=== PATIENT | male | born 1925 | race American Indian/Alaskan Native ===

== ENCOUNTER 2016-05-10 14:58 | Inpatient (IN) | payer MEDICARE, OTHER ==
--- NOTE | 2016-05-10 15:20 | C.PDOC ---
History Of Present Illness Patient [place] from [place] for sudden onset of dysarthria and right sided facial droop since approx 1:45pm, witnessed by [facility] staff. Patient at baseline in confused, but can typically speak normally. PMHx of HTN, anemia, GERD. Time Seen by Provider: 05/10/16 15:02 History Per: EMS History/Exam Limitations: clinical condition Onset/Duration Of Symptoms: Hrs Current Symptoms Are (Timing): Still Present Seizure Or Post-ictal Symptoms: None Past Medical History Reviewed: Historical Data, Nursing Documentation, Vital Signs Vital Signs: Last Vital Signs Temp 96.7 F L 05/10/16 18:00 Pulse 50 L 05/10/16 19:31 Resp 14 05/10/16 19:31 BP 108/41 L 05/10/16 19:31 Pulse Ox 100 05/10/16 19:31 - Medical History PMH: Anemia, Arthritis (B/L KNEE R>L), GERD, HTN - [facility] Procedures CLOSED ENDOSCOPIC BIOPSY OF LARGE INTESTINE (09/12/13) ESOPHAGOGASTRODUODENOSCOPY [EGD] W/CLOSED BIOPSY (09/12/13) PACKED CELL TRANSFUSION (09/12/13) TRANSFUSE NONAUT RED BLOOD CELLS IN PERIPH VEIN, PERC (04/28/16) Family History: States: No Known Family Hx - Social History Hx Tobacco Use: No Hx Alcohol Use: No Hx Substance Use: No - Immunization History Hx Tetanus Toxoid Vaccination: No Hx Influenza Vaccination: Yes Hx Pneumococcal Vaccination: No Review Of Systems Review Of Systems: ROS cannot be obtained secondary to pt's inabilty to answer questions. Physical Exam - Physical Exam Appears: Non-toxic, Other (in mild distress, agitated, cachectic appearing) Head: Atraumatic, Normacephalic Eye(s): bilateral: Normal Inspection, PERRL (approx 2mm bt equal and reactive B/ L) Oral Mucosa: Moist Chest: Symmetrical Cardiovascular: Rhythm Regular (bradycardic ) Respiratory: Normal Breath Sounds, No Rales, No Rhonchi, No Wheezing Gastrointestinal/Abdominal: Normal Exam, Bowel Sounds, Soft, No Tenderness Neurological/Psych: No Normal Speech, No Normal Cranial Nerves (right lainey complete facial droop), No Cerebellar Signs, No Normal Motor (facial droop - however 5/5 motor strength all extremities ), Dysarthria, Other (slurred speech) ED Course And Treatment - Laboratory Results Result Diagrams: 05/10/16 15:31 05/10/16 15:31 ECG: Interpreted By Me, Viewed By Me (sinus bradycardia, normal axis, no acute ST changes) ECG Interpretation: Abnormal O2 Sat by Pulse Oximetry: 100 (RA) Pulse Ox Interpretation: Normal Progress Note: Code stroke called on ED arrival. Blood work, EKG, CT head ordered and reviewed. Patient given [facility] [place] after CT head results (-) for bleed. 3:20pm- Spoke with Dr. Wen, he recommends tPA and CT angio of head after wards. Calls made to luís and son at 3:25pm, pending call back for consendy for tPA. 3:40PM- Spoke with son Bryan Whittington on the phone, he consents for tPA administration, nurse Anne-Marie also spoke with him and heard/ confirmed his telephone consent. 4:00pm- Discussed coagulotation studies with Dr. Wen, he recommends tPA despite slightly elevated PTT at 44. No evidence of heparin/lovenox adminstration on [facility] papers. 4:02pm- IV tPA bolus pushed by me. 4:15PM- Patient speech a little more clear than before tPA bolus. 4:40pm- Patient accepted to ICU by Dr. Camacho for acute CVA. Dr. Kelley aware. Critical Care Time - Critical Care Note Total Time (in mins): 45 Documented critical care: time excludes all time spent performing seperately billable procedures. NIHSS Stroke Scale - Date/Time Evaluation Performed Date Performed: 05/10/16 Time Performed: 15:05 When Was NIHSS Performed: Baseline - How Severe is the Stoke Level of Consciousness: 0=Alert LOC to Questions: 1=One correct LOC to commands: 1=Obeys one correctly Best Gaze: 0=Normal Visual: 0=No visual loss Facial: 3=Complete unilateral paralysis Motor Arm - Left: 0=No drift Motor Arm - Right: 0=No drift Motor Leg - Left: 0=No drift Motor Leg - Right: 0=No drift Limb Ataxia: 0=Absent Sensory: 0=Normal Best Language: 0=No aphasia Dysarthia: 2=Severe, near unintelligible or worse Extinction & Inattention (Neglect): 0=Normal, no object Score: 7 Severity Of Stroke: 5-15= Moderate Stroke rTPA Inclusion/Exclusion - Refusal of Treatment Patient Refused Treatment: No - Inclusion Criteria for Altepase Patient is 18 years or Older: Yes The Clinical Diagnosis of Ischemic Stroke That is Causing a Potentially Disabling Neurological Deficit: Yes Time of Onset is Well Established to be Less Than 270 Minute Before Treatment Would Begin: Yes Risk/Benefit Discussed With Patient/Family Member Present: Yes - Exclusion Criteria for Altepase Uncontrolled Hypertension at Time of Treatment (Systolic BP above 185 or Diastolic BP above 110 mmHg): No Active Internal Bleeding: No Known Bleeding Diathesis Including but Not Limited to: Platelets Below 100,000/ mm,PTT Above 40 sec After Heparin Use, Current Use of Oral Anitcoagulant With INR Greater Than 1.7 or PT Greater Than 15 secs: No Evidence of an Intracranial Hemorrhage: No Evidence of Major Acute Infarct With Signs Greater Than 1/3 MCA Territory: No Suspicion of Subarachnoid Hemorrhage on Pretreatment Evaluation Even if CT Head Negative For Hemorrhage: No - Warning to TPA With Conditions Following Conditions Weighed Against Anticipated Benefit: Yes Condition: Age Greater Than 75 years Additional Condition (For 3-4.5 Hour Window): Age Greater Than 80 Disposition - Disposition Disposition: HOSPITALIZED Condition: SERIOUS
--- NOTE | 2016-05-10 15:22 | CT ---
PROCEDURE: CT HEAD WITHOUT CONTRAST. HISTORY: RIGHT Facial DROOP , SLURRED Speech COMPARISON: Head CT from 04/28/2016. TECHNIQUE: Axial computed tomography images were obtained through the head/brain without intravenous contrast. Radiation dose: Total exam DLP = 1172.5 mGy-cm. FINDINGS: HEMORRHAGE: No intracranial hemorrhage. BRAIN: 1.8 x 1.7 centimeter hypodense area in the left frontal subcortical white matter best seen on image 53, series 4. This was not seen in the prior CT from 04/28/2016. Age related volume loss. Patchy and confluent hypodensities throughout the bilateral cerebral hemispheric white matter are most likely from chronic small vessel ischemic changes. VENTRICLES: Unremarkable. No hydrocephalus. CALVARIUM: Unremarkable. PARANASAL SINUSES: Unremarkable as visualized. No significant inflammatory changes. MASTOID AIR CELLS: Unremarkable as visualized. No inflammatory changes. OTHER FINDINGS: None. IMPRESSION: New 1.8 x 1.7 centimeter hypodense area in the left frontal white matter could represent an area of acute/ early subacute ischemic injury. Confirmation with MRI can be obtained. Other findings as above. Notified Dr. Mcconnell at 3:17 p.m. on 05/10/2016.
[2016-05-10 15:35] LABS: BASO # 0.1 K/uL (0.0-0.2); BASO % 2.2 % (0.0-2.0); EOS # 0.1 K/uL (0.0-0.7); EOS % 0.8 % (0.0-4.0); LYMPH # 1.3 K/uL (1.0-4.3); LYMPH % 20.9 % (20.0-40.0); MEAN CORPUSCULAR HEMOGLOBIN 23.5 pg (27.0-31.0); MEAN PLATELET VOLUME 7.1 fL (7.2-11.7); MONO # 0.6 K/uL (0.0-0.8); MONO % 10.2 % (0.0-10.0); NRBC % 0.9 % (0.0-2.0); RED CELL DISTRIBUTION WIDTH 18.5 % (11.5-14.5)
[2016-05-10 15:37] LABS: MEAN CELL VOLUME 73.3 fL (80.0-94.0)
[2016-05-10 15:46] LABS: CHLORIDE 100 mmol/L (98-107); POTASSIUM 4.2 mmol/L (3.6-5.2); SODIUM 144 mmol/L (132-148)
[2016-05-10 15:48] LABS: BILIRUBIN,TOTAL 0.8 mg/dL (0.2-1.3); CARBON DIOXIDE 29 mmol/L (22-30); CHOLESTEROL 161 mg/dL (0-199); GFR AFRICAN-AMERICAN > 60; TOTAL PROTEIN 6.9 g/dL (6.3-8.3)
[2016-05-10 15:49] LABS: ALKALINE PHOSPHATASE 47 U/L (38-126); ALT/SGPT 33 U/L (21-72); AST/SGOT 49 U/L (17-59); BLOOD UREA NITROGEN 15 mg/dL (9-20); CALCIUM 8.9 mg/dl (8.6-10.4); GLUCOSE,RANDOM 86 mg/dL (75-110)
[2016-05-10] MEDS ORDERED: Sodium Chloride 0.9% 1,000 ML ONE (15:56)
[2016-05-10] MEDS ORDERED: Iodixanol 320 MG/ML 100 ML BOTTLE IV ONE (16:05)
[2016-05-10 16:32] VITALS: BMI 16.7
--- NOTE | 2016-05-10 16:38 | RAD ---
PROCEDURE: CHEST RADIOGRAPH, 1 VIEW HISTORY: slurred speech COMPARISON: 04/28/2016 FINDINGS: LUNGS: Minimal linear opacities in the lung bases. PLEURA: No pneumothorax or pleural fluid seen. CARDIOVASCULAR: Stable cardiomediastinal silhouette. OSSEOUS STRUCTURES: The osseous structures demonstrate degenerative changes. VISUALIZED UPPER ABDOMEN: Upper abdomen is suboptimally evaluated. Large hernia. OTHER FINDINGS: None. IMPRESSION: Linear opacities in the lung bases.
[2016-05-10] MEDS ORDERED: Sodium Chloride 0.9% 500 ML IV ONE (16:53)
[2016-05-10] MEDS: Sodium Chloride 0.9% 1,000 ML IV SCH (18:07)
--- NOTE | 2016-05-10 18:11 | CP.PCM.CON ---
<[employer] - Last Filed: 05/10/16 18:32> History of Present Illness - History of Present Illness History of Present Illness: CRITICAL CARE CONSULT NOTE HPI: 89[facility] brought into ED on by EMS for sudden onset of dysarthria and R-sided facial droop since approximately 1:45PM, witnessed by [facility] staff. Patient at baseline is confused, but can typically speak normally. Patient was discharged from [facility] last week s/p fall with hip contusion. Patient is usually ambulatory with an assisted walking device. ROS cannot be currently obtained due to patient's inability to answer questions. History was supplemented with prior medical charts. PMH: HTN, anemia, GERD, dementia, osteoarthritis PSH: unknown FamHx: unknown SocHx: denies tobacco, EtOH use Meds: terazosin 2 mg daily, flomax .4 mg daily, protonix 40 mg daily, atenolol 25 mg daily as per prior admission Allergies- NKDA ED course: Code stroke was called emergently on ED arrival. NIHSS score of 7 ( moderate stroke). Dr. eWn consulted and recommended tPA and CT angio of the head. 4:02pm IV tPA bolus pushed. Review of Systems - Review of Systems Review of Systems: unable to obtain due to patient status s/p stroke- aphasic ; baseline- confused Past Patient History - Infectious Disease Hx of Infectious Diseases: None - Past Medical History & Family History Past Medical History?: Yes - Past Social History Smoking Status: Never Smoked - CARDIAC Hx Hypertension: Yes - PULMONARY Hx Tuberculosis: No - NEUROLOGICAL Hx Seizures: No - HEENT Hx Blind: Yes (left eye) Other/Comment: HARD OF HEARING, right eye blurry vision - RENAL Hx Chronic Kidney Disease: No - ENDOCRINE/METABOLIC Hx Endocrine Disorders: No - HEMATOLOGICAL/ONCOLOGICAL Hx Anemia: Yes - INTEGUMENTARY Hx Dermatological Problems: No - MUSCULOSKELETAL/RHEUMATOLOGICAL Hx Arthritis: Yes (B/L KNEE R>L) - GASTROINTESTINAL Hx Gastroesophageal Reflux: Yes - GENITOURINARY/GYNECOLOGICAL Hx Sexually Transmitted Disorders: No - PSYCHIATRIC Hx Substance Use: No - SURGICAL HISTORY Hx Surgeries: Yes Other/Comment: hx of L nephrectomy - ANESTHESIA Hx Anesthesia: Yes Hx Anesthesia Reactions: No Hx Malignant Hyperthermia: No Meds Allergies/Adverse Reactions: Allergies Allergy/AdvReac Type Severity Reaction Status Date / Time No Known Allergies Allergy Verified 05/10/16 15:34 - Medications Medications: Current Medications Sodium Chloride (Sodium Chloride 0.9%) 1,000 mls @ 100 mls/hr IV .Q10H [facility] Last Admin: 05/10/16 18:07 Dose: 100 mls/hr Physical Exam - Constitutional Appears: Non-toxic, No Acute Distress (at time of evaluation; somnolence) Additional comments: exam evaluation findings limited by patient's baseline confusion and limited responsiveness - Head Exam Head Exam: NORMOCEPHALIC Additional comments: facial droop noted - Eye Exam Eye Exam: PERRL - ENT Exam ENT Exam: Mucous Membranes Dry - Neck Exam Neck exam: Negative for: Full Rom - Respiratory Exam Respiratory Exam: absent: Wheezes - Cardiovascular Exam Cardiovascular Exam: +S1, +S2 - GI/Abdominal Exam GI & Abdominal Exam: Normal Bowel Sounds, Soft - Extremities Exam Extremities exam: Negative for: full ROM (decreased. UE strength 2/5 b/l; LE strength 1/5 b/l) - Back Exam Back exam: absent: FULL ROM - Neurological Exam Neurological exam: Altered Additional comments: aphasic - Psychiatric Exam Psychiatric exam: Flat Affect - Skin Skin Exam: Dry, Intact, Normal Color, Warm Results - Vital Signs Recent Vital Signs: Last Vital Signs Temp 95.1 F L 05/10/16 17:21 Pulse 57 L 05/10/16 17:45 Resp 16 05/10/16 17:45 BP 112/78 05/10/16 17:45 Pulse Ox 100 05/10/16 17:45 - Labs Result Diagrams: 05/10/16 15:31 05/10/16 15:31 Labs: Laboratory Results - last 24 hr 05/10/16 17:27 Stool Occult Blood Negative Assessment & Plan - Assessment and Plan (Free Text) Assessment: 89[facility] with PMH of HTN, anemia, GERD, dementia, OA, brought in to ED with code stroke. Pt was evaluated in the ED and received IV tPA bolus at 4:02pm. Pt transferred to ICU for close monitoring. Plan: Neuro: Alert, drowsy, oriented to self and place, was unable to state the date or the current president. Right-sided facial droop, slurred speech s/p stroke (NIHSS score of 7) s/p IV tPA bolus Recent hx of falls (04/28/16) - recently treated at 05/10/16 CT head: New 1.8 x 1.7 centimeter hypodense area in the left frontal white matter could represent an area of acute/ early subacute ischemic injury. 04/28/16 CT head: No acute intracranial abnormality. Mild chronic microangiopathic changes and moderate age-related global parenchymal volume loss. Neurology (Dr. Wen) on the case - help appreciated Dr. Wen wants CT angio performed after tPA. F/U recommendations Neuro checks Cardio: Hx of HTN Currently hypotensive BP 94/49; maintenance fluids given ns 100cc/hr HR ranges from 48-92 05/01/16 ECG: NSR, low-voltage QRS, borderline ECG 04/28/16 ECG: Sinus bradycardia, early repolarization, otherwise normal ECG. 04/08/14 Echo: LVEF 55-60%, diastolic dysfunction, trace to mild TR. Troponin I <0.0120 Total CK 466 Home meds held: Atenolol 50mg PO daily Pulm: RR 15 Saturating 99% 05/10/16 CXR: Linear opacities in the lung bases. 04/28/16 CXR: Mild venous congestion with atelectatic changes in the left hilar region and left lung base. Left apical granuloma. Patchy right basilar atelectasis. Nodular density in the right hilar rate region may represent vessel on end. GI: Hx of GERD Hiatal hernia 04/28/16 CXR: Large hiatal hernia Heme: Hx of Anemia s/p tPA Hgb 9.9 Hct 31.0 Plt 266 Coagulation studies: 05/10/16 PT 11.4 INR 1.0 APTT 44 Monitor CBC, PT/INR Endo: Maintain euglycemia Nephro: BUN/Cr 15/0.8 Electrolytes within normal limits Monitor IVF fluids : ?BPH Redd catheter not placed in ED, Do not place Redd for 24 hrs (until 4:02pm ) Home meds held: Flomax ID: WBC: 6.0 Monitor CBC Prophylaxis: anticoagulation precautions for 24 hours after tPA infusion <Rafa Camacho S - Last Filed: 05/10/16 18:44> Meds - Medications Medications: Current Medications Sodium Chloride (Sodium Chloride 0.9%) 1,000 mls @ 100 mls/hr IV .Q10H [facility] Last Admin: 05/10/16 18:07 Dose: 100 mls/hr Results - Vital Signs Recent Vital Signs: Last Vital Signs Temp 95.1 F L 05/10/16 17:21 Pulse 57 L 05/10/16 17:45 Resp 16 05/10/16 17:45 BP 112/78 05/10/16 17:45 Pulse Ox 100 05/10/16 17:45 - Labs Result Diagrams: 05/10/16 15:31 05/10/16 15:31 Labs: Laboratory Results - last 24 hr 05/10/16 17:27 Stool Occult Blood Negative Attending/Attestation - Attestation I have personally seen and examined this patient.: Yes I have fully participated in the care of the patient.: Yes I have reviewed all pertinent clinical information: Yes Notes (Text): 05/10/16 18:44 Patient seen and examined. 89yo male [facility] with PMH of HTN, anemia, GERD, dementia, OA, brought in to ED with code stroke. Pt was evaluated in the ED and received IV tPA bolus at 4:02pm. Pt transferred to ICU for close monitoring.
--- NOTE | 2016-05-10 19:54 | CON ---
DATE: 05/10/2016 REASON FOR ADMISSION: Slurred speech. HISTORY OF PRESENT ILLNESS: The patient was brought in from long-term with a history of slurred speech this afternoon. The patient was brought in the window period to get TPA. The patient did have facial weakness as well as slurred speech with NIHSS score of 7 after following preliminary workup for TPA and the patient was given TPA as per the protocol. Following TPA, the patient immediately her speech got improved as per the documentation about 10-15 minutes. From neurological point of view for stabilizing her neurological insult, I was involved. The patient is an 89-year-old right-handed -Cypriot male brought in to [facility] with a history of slurred speech within 2 hour period. At the Emergency Room, patient was found to have nasolabial fold flattening on the right side with slurred speech. The patient did not have any focal weakness of the arms or legs. No history of fall, no history of involuntary movements at the scene, no history of bowel or bladder incontinence. Following TPA, the patient did have a CT angiogram to rule out any thrombus. PAST MEDICAL HISTORY: Hypertension, anemia, gastroesophageal reflux disease, dementia, osteoarthritis. SOCIAL HISTORY: Denies smoking or alcohol use. MEDICATIONS: At the long-term Flomax, Protonix, atenolol, and terazosin. REVIEW OF SYSTEMS: As per H and P. PHYSICAL EXAMINATION: VITAL SIGNS: Blood pressure 126/58 with a mean arterial pressure of 80, respiratory rate 16, temperature afebrile. NECK: Supple. No carotid bruit. HEART: Sounds NSR. CHEST: Fair air entry. EXTREMITIES: Distal as well as proximal muscle atrophy noted. NEUROLOGIC EXAMINATION: MENTAL STATUS EXAMINATION: The patient is arousable verbally. He keeps his eyes closed. On requesting opening his eyes, he kept open. CRANIAL NERVE EXAMINATION: Visual field intact, responds to visual threat. He was able to count the numbers. The patient is edentulous. There is no facial asymmetry, not observed at this time. Extraocular movement intact, but decreased horizontal as well as vertical movement. Mouth is dry. MOTOR: He was able to lift both upper extremities against the gravity, now over left is somewhat slightly decreased than his right side. He could move both lower extremities against gravity. DEEP TENDON REFLEXES: Trace. Plantars are downgoing on both sides. SENSORY EXAMINATION: Responds to pain symmetrically on both sides. COORDINATION: Unable to do. GAIT: Deferred at this time because of the nature of the treatment he got. CONCLUSION: Upon reviewing his history and neurological examination, the patient was presenting with possible left cortical dysfunction manifesting with slurred speech and facial weakness. The patient met the criteria for TPA and he received it and his symptom got improved following TPA. WORKUP: CT of the head reviewed. No acute pathologies noted. CT angiogram result is still pending. Continue proper hydration, keep the mean arterial pressure around 100. Speech and swallow evaluation to be done tomorrow and patient should get an MRI of the brain and deep venous thrombosis prophylaxis can be started tomorrow. I will place him on aspirin tomorrow. The patient also recommended to have echocardiogram, carotid Doppler, EEG and MRI of the brain. Ernesto Wen MD cc: [id number] TT: 05/10/2016 19:53:48 Confirmation # [id number] Dictation # [id number] MTDD
[2016-05-11] MEDS: Sodium Chloride 0.9% 1,000 ML IV SCH (03:21)
[2016-05-11 03:36] LABS: MONO # 0.3 K/uL (0.0-0.8)
[2016-05-11 03:41] LABS: BASO % 0.4 % (0.0-2.0); EOS % 0.2 % (0.0-4.0); HEMATOCRIT 28.9 % (35.0-51.0); LYMPH # 2.7 K/uL (1.0-4.3); LYMPH % 47.1 % (20.0-40.0); MEAN CELL VOLUME 74.5 fL (80.0-94.0); MEAN CORPUSCULAR HEMOGLOBIN 23.5 pg (27.0-31.0); MEAN CORPUSCULAR HGB CONC 31.6 g/dL (33.0-37.0); MONO % 4.8 % (0.0-10.0); NRBC % 0.6 % (0.0-2.0); RED CELL DISTRIBUTION WIDTH 18.1 % (11.5-14.5); WHITE BLOOD COUNT 5.6 K/uL (4.8-10.8)
[2016-05-11 03:51] LABS: CHLORIDE 105 mmol/L (98-107)
[2016-05-11 03:52] LABS: POTASSIUM 4.4 mmol/L (3.6-5.2); SODIUM 142 mmol/L (132-148)
[2016-05-11 03:54] LABS: ALB/GLOB RATIO 0.8 (1.0-2.1); AST/SGOT 58 U/L (17-59); CARBON DIOXIDE 25 mmol/L (22-30); GFR AFRICAN-AMERICAN > 60; TOTAL PROTEIN 6.6 g/dL (6.3-8.3)
[2016-05-11 03:55] LABS: ALKALINE PHOSPHATASE 40 U/L (38-126); ALT/SGPT 35 U/L (21-72); BLOOD UREA NITROGEN 14 mg/dL (9-20); GLUCOSE,RANDOM 58 mg/dL (75-110); MAGNESIUM 1.8 mg/dL (1.6-2.3); PHOSPHOROUS 3.5 mg/dL (2.5-4.5)
[2016-05-11 04:56] LABS: THYROID STIMULATING HORMONE 2.74 mIU/L (0.46-4.68)
[2016-05-11 05:01] LABS: FOLATE 19.6 ng/mL
[2016-05-11 05:19] LABS: ERYTHROCYTE SEDIMENTATION RATE 16 mm/hr (0-15)
[2016-05-11 05:21] LABS: RBC URINE 67 /hpf (0-3); URINE BACTERIA RARE (<OCC); URINE BILIRUBIN NEGATIVE (NEGATIVE); URINE BLOOD 2+ (NEGATIVE); URINE COLOR Yellow (YELLOW); URINE GLUCOSE (UA) NORMAL (Normal); URINE KETONE TRACE mg/dL (NEGATIVE); URINE LEUKOCYTE ESTERASE 3+ Leu/uL (Negative); URINE PROTEIN NEGATIVE (NEGATIVE); URINE UROBILINOGEN NORMAL mg/dL (0.2-1.0); WBC URINE 130 /hpf (0-5)
[2016-05-11 05:43] LABS: FREE T4 1.41 ng/dL (0.78-2.19)
--- NOTE | 2016-05-11 07:32 | CP.CCUPN ---
<[employer] - Last Filed: 05/11/16 21:15> CCU Subjective - Physician Review Subjective (Free Text): 05/11/16 21:15 Pt seen and examined and extremely agitated- thrashing about continuously. Pt to have MRI today to rule out acute underlying changes in hours after suspected CVA. Per nursing, confused , disoriented and combative. Patient needed to be sedated at times. An ROS could not be obtained secondarily to presentation. CCU Objective - Vital Signs / Intake & Output Vital Signs (Last 4 hours): Vital Signs Temp Pulse Resp BP Pulse Ox 05/11/16 07:04 116/41 L 05/11/16 07:00 58 L 14 98 05/11/16 06:05 103/54 L 05/11/16 06:00 69 15 98 05/11/16 05:05 91/60 L 05/11/16 05:00 57 L 15 100 05/11/16 04:09 50 L 13 92/32 L 99 05/11/16 04:00 97.2 F L 53 L 14 100 05/11/16 03:56 61 14 105/56 L 100 Intake and Output (Last 8hrs): Intake & Output 05/10/16 05/11/16 05/11/16 22:59 06:59 14:59 Intake Total 500 900 Output Total 0 400 Balance 500 500 Weight 111 lb 104 lb 1.6 oz Intake: Intake, IV Amount 500 900 Left Forearm 500 900 Output: Urine 0 400 Urine, Voided 0 400 Other: Voiding Method Diaper # Voids Urine, Voided 1 - Physical Exam Head: Positive for: Atraumatic, Normocephalic Respiratory/Chest: Positive for: Good Air Exchange. Negative for: Respiratory Distress, Wheezes Cardiovascular: Positive for: Normal S1, S2 Abdomen: Negative for: Tenderness, Distention Upper Extremity: Positive for: Capillary Refill < 2s, Other (4/5 muscle strength in UE b/l) Lower Extremity: Positive for: NORMAL PULSES, Other (3/5 muscle strength in LE - was not able to comply with most of evaluation- combative) Neurological: Positive for: Other (could not assess- patient combative). Negative for: Speech Normal Skin: Positive for: Warm, Dry Psychiatric: Positive for: Anxious, Agitated Other physical findings (Free Text): cachectic - Medications Active Medications: Active Medications Generic Name Dose Route Start Last Admin Trade Name Mike PRN Reason Stop Dose Admin Aspirin 81 mg 05/11/16 10:00 Ecotrin PO DAILY CHRISTIANA Sodium Chloride 1,000 mls @ 100 mls/hr 05/10/16 18:15 05/11/16 03:21 Sodium Chloride 0.9% IV 100 mls/hr .Q10H CHRISTIANA Administration - Patient Studies Lab Studies: Lab Studies 05/11/16 05/11/16 05/11/16 Range/Units 05:06 03:43 03:41 WBC 5.6 (4.8-10.8) K/uL RBC 3.89 L (4.40-5.90) Mil/uL Hgb 9.1 L (12.0-18.0) g/dL Hct 28.9 L (35.0-51.0) % MCV 74.5 L (80.0-94.0) fL MCH 23.5 L (27.0-31.0) pg MCHC 31.6 L (33.0-37.0) g/dL RDW 18.1 H (11.5-14.5) % Plt Count 223 (130-400) K/uL MPV 7.0 L (7.2-11.7) fL Neut % (Auto) 47.5 L (50.0-75.0) % Lymph % (Auto) 47.1 H (20.0-40.0) % Sandoval % (Auto) 4.8 (0.0-10.0) % Eos % (Auto) 0.2 (0.0-4.0) % Baso % (Auto) 0.4 (0.0-2.0) % Neut # 2.7 (1.8-7.0) K/uL Lymph # 2.7 (1.0-4.3) K/uL Sandoval # 0.3 (0.0-0.8) K/uL Eos # 0.0 (0.0-0.7) K/uL Baso # 0.0 (0.0-0.2) K/uL ESR (0-15) mm/hr Sodium (132-148) mmol/L Potassium (3.6-5.2) mmol/L Chloride (98-107) mmol/L Carbon Dioxide (22-30) mmol/L Anion Gap (10-20) BUN (9-20) mg/dL Creatinine (0.8-1.5) MG/DL Est GFR ( Amer) Est GFR (Non-Af Amer) Random Glucose (75-110) mg/dL Calcium (8.6-10.4) mg/dl Phosphorus (2.5-4.5) mg/dL Magnesium (1.6-2.3) mg/dL Total Bilirubin (0.2-1.3) mg/dL AST (17-59) U/L ALT (21-72) U/L Alkaline Phosphatase (38-126) U/L Total Protein (6.3-8.3) g/dL Albumin (3.5-5.0) g/dL Globulin (2.2-3.9) gm/dL Albumin/Globulin Ratio (1.0-2.1) Triglycerides 70 (0-149) mg/dL Cholesterol 135 (0-199) mg/dL LDL Cholesterol Direct 53 (0-129) mg/dL HDL Cholesterol 53 (30-70) mg/dL Vitamin B12 939 H (239-931) pg/mL Folate 19.6 ng/mL Homocysteine 9.0 (6.6-14.8) umol/L Free T4 (0.78-2.19) ng/dL TSH 3rd Generation (0.46-4.68) mIU/L Urine Color Yellow (YELLOW) Urine Clarity Hazy (Clear) Urine pH 6.0 (5.0-8.0) Ur Specific Butler 1.048 H (1.003-1.030) Urine Protein Negative (NEGATIVE) mg/dL Urine Glucose (UA) Normal (Normal) mg/dL Urine Ketones Trace (NEGATIVE) mg/dL Urine Blood 2+ H (NEGATIVE) Urine Nitrate Negative (NEGATIVE) Urine Bilirubin Negative (NEGATIVE) Urine Urobilinogen Normal (0.2-1.0) mg/dL Ur Leukocyte Esterase 3+ H (Negative) Logan/uL Urine WBC (Auto) 130 H (0-5) /hpf Urine RBC (Auto) 67 H (0-3) /hpf Urine Bacteria Rare (<OCC) Stool Occult Blood (NEGATIVE) 05/11/16 05/10/16 Range/Units 03:29 17:27 WBC (4.8-10.8) K/uL RBC (4.40-5.90) Mil/uL Hgb (12.0-18.0) g/dL Hct (35.0-51.0) % MCV (80.0-94.0) fL MCH (27.0-31.0) pg MCHC (33.0-37.0) g/dL RDW (11.5-14.5) % Plt Count (130-400) K/uL MPV (7.2-11.7) fL Neut % (Auto) (50.0-75.0) % Lymph % (Auto) (20.0-40.0) % Sandoval % (Auto) (0.0-10.0) % Eos % (Auto) (0.0-4.0) % Baso % (Auto) (0.0-2.0) % Neut # (1.8-7.0) K/uL Lymph # (1.0-4.3) K/uL Sandoval # (0.0-0.8) K/uL Eos # (0.0-0.7) K/uL Baso # (0.0-0.2) K/uL ESR 16 H (0-15) mm/hr Sodium 142 (132-148) mmol/L Potassium 4.4 (3.6-5.2) mmol/L Chloride 105 (98-107) mmol/L Carbon Dioxide 25 (22-30) mmol/L Anion Gap 17 (10-20) BUN 14 (9-20) mg/dL Creatinine 0.7 L (0.8-1.5) MG/DL Est GFR ( Amer) > 60 Est GFR (Non-Af Amer) > 60 Random Glucose 58 L (75-110) mg/dL Calcium 8.0 L (8.6-10.4) mg/dl Phosphorus 3.5 (2.5-4.5) mg/dL Magnesium 1.8 (1.6-2.3) mg/dL Total Bilirubin 1.0 (0.2-1.3) mg/dL AST 58 (17-59) U/L ALT 35 (21-72) U/L Alkaline Phosphatase 40 (38-126) U/L Total Protein 6.6 (6.3-8.3) g/dL Albumin 2.9 L (3.5-5.0) g/dL Globulin 3.7 (2.2-3.9) gm/dL Albumin/Globulin Ratio 0.8 L (1.0-2.1) Triglycerides (0-149) mg/dL Cholesterol (0-199) mg/dL LDL Cholesterol Direct (0-129) mg/dL HDL Cholesterol (30-70) mg/dL Vitamin B12 (239-931) pg/mL Folate ng/mL Homocysteine (6.6-14.8) umol/L Free T4 1.41 (0.78-2.19) ng/dL TSH 3rd Generation 2.74 (0.46-4.68) mIU/L Urine Color (YELLOW) Urine Clarity (Clear) Urine pH (5.0-8.0) Ur Specific Butler (1.003-1.030) Urine Protein (NEGATIVE) mg/dL Urine Glucose (UA) (Normal) mg/dL Urine Ketones (NEGATIVE) mg/dL Urine Blood (NEGATIVE) Urine Nitrate (NEGATIVE) Urine Bilirubin (NEGATIVE) Urine Urobilinogen (0.2-1.0) mg/dL Ur Leukocyte Esterase (Negative) Logan/uL Urine WBC (Auto) (0-5) /hpf Urine RBC (Auto) (0-3) /hpf Urine Bacteria (<OCC) Stool Occult Blood Negative (NEGATIVE) Laboratory Results - last 24 hr 05/10/16 05/11/16 05/11/16 17:27 03:29 03:41 WBC RBC Hgb Hct MCV MCH MCHC RDW Plt Count MPV Neut % (Auto) Lymph % (Auto) Sandoval % (Auto) Eos % (Auto) Baso % (Auto) Neut # Lymph # Sandoval # Eos # Baso # ESR 16 H Sodium 142 Potassium 4.4 Chloride 105 Carbon Dioxide 25 Anion Gap 17 BUN 14 Creatinine 0.7 L Est GFR ( Amer) > 60 Est GFR (Non-Af Amer) > 60 Random Glucose 58 L Calcium 8.0 L Phosphorus 3.5 Magnesium 1.8 Total Bilirubin 1.0 AST 58 ALT 35 Alkaline Phosphatase 40 Total Protein 6.6 Albumin 2.9 L Globulin 3.7 Albumin/Globulin Ratio 0.8 L Triglycerides 70 Cholesterol 135 LDL Cholesterol Direct 53 HDL Cholesterol 53 Vitamin B12 939 H Folate 19.6 Homocysteine 9.0 Free T4 1.41 TSH 3rd Generation 2.74 Urine Color Urine Clarity Urine pH Ur Specific Butler Urine Protein Urine Glucose (UA) Urine Ketones Urine Blood Urine Nitrate Urine Bilirubin Urine Urobilinogen Ur Leukocyte Esterase Urine WBC (Auto) Urine RBC (Auto) Urine Bacteria Stool Occult Blood Negative 05/11/16 05/11/16 03:43 05:06 WBC 5.6 RBC 3.89 L Hgb 9.1 L Hct 28.9 L MCV 74.5 L MCH 23.5 L MCHC 31.6 L RDW 18.1 H Plt Count 223 MPV 7.0 L Neut % (Auto) 47.5 L Lymph % (Auto) 47.1 H Sandoval % (Auto) 4.8 Eos % (Auto) 0.2 Baso % (Auto) 0.4 Neut # 2.7 Lymph # 2.7 Sandoval # 0.3 Eos # 0.0 Baso # 0.0 ESR Sodium Potassium Chloride Carbon Dioxide Anion Gap BUN Creatinine Est GFR ( Amer) Est GFR (Non-Af Amer) Random Glucose Calcium Phosphorus Magnesium Total Bilirubin AST ALT Alkaline Phosphatase Total Protein Albumin Globulin Albumin/Globulin Ratio Triglycerides Cholesterol LDL Cholesterol Direct HDL Cholesterol Vitamin B12 Folate Homocysteine Free T4 TSH 3rd Generation Urine Color Yellow Urine Clarity Hazy Urine pH 6.0 Ur Specific Butler 1.048 H Urine Protein Negative Urine Glucose (UA) Normal Urine Ketones Trace Urine Blood 2+ H Urine Nitrate Negative Urine Bilirubin Negative Urine Urobilinogen Normal Ur Leukocyte Esterase 3+ H Urine WBC (Auto) 130 H Urine RBC (Auto) 67 H Urine Bacteria Rare Stool Occult Blood Fingerstick Blood Sugar Results: 95 Review of Systems - Review of Systems Review of Systems: as noted in subjective- very combative- not able to comply at this time- will need to reassess when calmer Assessment/Plan - Assessment and Plan (Free Text) Assessment: 89yo male care home resident with PMH of HTN, anemia, GERD, dementia, OA, brought in to ED with code stroke. Pt was evaluated in the ED and received IV tPA bolus at 4:02pm on 05/10. Pt tolerated with noted improvement. Pt transferred to ICU for close monitoring. MRI pending. Plan: Neuro: combative, improved muscle strength, confused s/p initial stroke (NIHSS score of 7) s/p IV tPA bolus Recent hx of falls (04/28/16) - recently treated at 05/10/16 CT head: New 1.8 x 1.7 centimeter hypodense area in the left frontal white matter could represent an area of acute/ early subacute ischemic injury. 04/28/16 CT head: No acute intracranial abnormality. Mild chronic microangiopathic changes and moderate age-related global parenchymal volume loss. Neurology (Dr. Wen) on the case - help appreciated Dr. Wen wants CT angio performed after tPA. F/U recommendations Neuro checks Patient to have EEG, carotid dopplers, echo studies as well- patient has not been able to comply with any studies as of yet due to combativeness. May need to be sedated MRI- no evidence of acute or subacute infarction; chronic microvascular changes Cardio: Hx of HTN Currently hypotensive BP 94/49; maintenance fluids given ns 100cc/hr HR ranges from 48-92 05/01/16 ECG: NSR, low-voltage QRS, borderline ECG 04/28/16 ECG: Sinus bradycardia, early repolarization, otherwise normal ECG. 04/08/14 Echo: LVEF 55-60%, diastolic dysfunction, trace to mild TR. Troponin I <0.0120 Total CK 466 Home meds held: Atenolol 50mg PO daily Pulm: stable 05/10/16 CXR: Linear opacities in the lung bases. 04/28/16 CXR: Mild venous congestion with atelectatic changes in the left hilar region and left lung base. Left apical granuloma. Patchy right basilar atelectasis. Nodular density in the right hilar rate region may represent vessel on end. GI: Hx of GERD Hiatal hernia 04/28/16 CXR: Large hiatal hernia Heme: Hx of Anemia s/p tpa coags wnl cont to monitor Endo: Maintain euglycemia Nephro: BUN/Cr 15/ stable Electrolytes within normal limits Monitor IVF fluids : Questionable BPH hx Redd catheter not placed in ED, Do not place Redd for 24 hrs (until 4:02pm ) Home meds held: Flomax ID: WBC: stable Monitor CBC Prophylaxis: anticoagulation precautions for 24 hours after tPA infusion. will begin after 24 hr period. Will discuss which agents recommended. Disp- Medically stable for transfer to Tele floor. Primary Dr. Kelley attempted to be reached. <Luis Armando Nelson M - Last Filed: 05/12/16 08:31> CCU Objective - Vital Signs / Intake & Output Intake and Output (Last 8hrs): Intake & Output 05/11/16 05/12/16 05/12/16 22:59 06:59 14:59 Intake Total 500 Balance 500 Intake: Intake, IV Amount 500 Left Forearm 500 - Medications Active Medications: Active Medications Generic Name Dose Route Start Last Admin Trade Name Mike PRN Reason Stop Dose Admin Aspirin 81 mg 05/11/16 10:00 05/11/16 10:00 Ecotrin PO 81 mg DAILY CHRISTIANA Administration Famotidine 20 mg 05/11/16 13:00 05/11/16 21:30 Pepcid IVP 20 mg Q12 CHRISTIANA Administration Dextrose/Sodium Chloride 1,000 mls @ 100 mls/hr 05/11/16 13:00 05/12/16 01:30 Dextrose 5%/0.9% Ns 1000 Ml IV 100 mls/hr .Q10H CHRISTIANA Administration Potassium Chloride 100 mls @ 50 mls/hr 05/12/16 07:15 Potassium Chloride 20 Meq/100 Ml IVPB 05/12/16 13:14 Q2H CHRISTIANA - Patient Studies Lab Studies: Microbiology Studies 05/10/16 Unknown MRSA Culture (Admit) - Final Naris MRSA NOT DETECTED Lab Studies 05/12/16 05/11/16 05/11/16 Range/Units 06:41 12:13 08:49 WBC 4.0 L (4.8-10.8) K/uL RBC 3.63 L (4.40-5.90) Mil/uL Hgb 8.5 L (12.0-18.0) g/dL Hct 26.4 L (35.0-51.0) % MCV 72.6 L (80.0-94.0) fL MCH 23.3 L (27.0-31.0) pg MCHC 32.1 L (33.0-37.0) g/dL RDW 18.3 H (11.5-14.5) % Plt Count 231 (130-400) K/uL MPV 6.9 L (7.2-11.7) fL Neut % (Auto) 61.9 (50.0-75.0) % Lymph % (Auto) 22.3 (20.0-40.0) % Sandoval % (Auto) 13.3 H (0.0-10.0) % Eos % (Auto) 0.7 (0.0-4.0) % Baso % (Auto) 1.8 (0.0-2.0) % Neut # 2.5 (1.8-7.0) K/uL Lymph # 0.9 L (1.0-4.3) K/uL Sandoval # 0.5 (0.0-0.8) K/uL Eos # 0.0 (0.0-0.7) K/uL Baso # 0.1 (0.0-0.2) K/uL Neutrophils % (Manual) (50-75) % Band Neutrophils % (0-2) % Lymphocytes % (Manual) (20-40) % Monocytes % (Manual) (0-10) % Eosinophils % (Manual) (0-4) % Nucleated RBC % (0-0) % Platelet Estimate (NORMAL) Poikilocytosis (manual Anisocytosis (manual) Target Cells Ovalocytes Winthrop Cells Schistocytes Sodium 144 (132-148) mmol/L Potassium 3.1 L (3.6-5.2) mmol/L Chloride 107 (98-107) mmol/L Carbon Dioxide 25 (22-30) mmol/L Anion Gap 16 (10-20) BUN 8 L (9-20) mg/dL Creatinine 0.7 L (0.8-1.5) MG/DL Est GFR ( Amer) > 60 Est GFR (Non-Af Amer) > 60 POC Glucose (mg/dL) 78 166 H (65-110) mg/dL Random Glucose 88 (75-110) mg/dL Calcium 7.8 L (8.6-10.4) mg/dl Phosphorus 2.6 (2.5-4.5) mg/dL Magnesium 1.7 (1.6-2.3) mg/dL Total Bilirubin 0.6 (0.2-1.3) mg/dL AST 34 (17-59) U/L ALT 29 (21-72) U/L Alkaline Phosphatase 41 (38-126) U/L Total Protein 5.8 L (6.3-8.3) g/dL Albumin 2.8 L (3.5-5.0) g/dL Globulin 3.0 (2.2-3.9) gm/dL Albumin/Globulin Ratio 0.9 L (1.0-2.1) // Range/Units 03:29 WBC (4.8-10.8) K/uL RBC (4.40-5.90) Mil/uL Hgb (12.0-18.0) g/dL Hct (35.0-51.0) % MCV (80.0-94.0) fL MCH (27.0-31.0) pg MCHC (33.0-37.0) g/dL RDW (11.5-14.5) % Plt Count (130-400) K/uL MPV (7.2-11.7) fL Neut % (Auto) (50.0-75.0) % Lymph % (Auto) (20.0-40.0) % Sandoval % (Auto) (0.0-10.0) % Eos % (Auto) (0.0-4.0) % Baso % (Auto) (0.0-2.0) % Neut # (1.8-7.0) K/uL Lymph # (1.0-4.3) K/uL Sandoval # (0.0-0.8) K/uL Eos # (0.0-0.7) K/uL Baso # (0.0-0.2) K/uL Neutrophils % (Manual) 71 (50-75) % Band Neutrophils % 1 (0-2) % Lymphocytes % (Manual) 21 (20-40) % Monocytes % (Manual) 6 (0-10) % Eosinophils % (Manual) 1 (0-4) % Nucleated RBC % 1 H (0-0) % Platelet Estimate Normal (NORMAL) Poikilocytosis (manual Moderate Anisocytosis (manual) Slight Target Cells Slight Ovalocytes Slight Sofi Cells Slight Schistocytes Slight Sodium (132-148) mmol/L Potassium (3.6-5.2) mmol/L Chloride (98-107) mmol/L Carbon Dioxide (22-30) mmol/L Anion Gap (10-20) BUN (9-20) mg/dL Creatinine (0.8-1.5) MG/DL Est GFR ( Amer) Est GFR (Non-Af Amer) POC Glucose (mg/dL) (65-110) mg/dL Random Glucose (75-110) mg/dL Calcium (8.6-10.4) mg/dl Phosphorus (2.5-4.5) mg/dL Magnesium (1.6-2.3) mg/dL Total Bilirubin (0.2-1.3) mg/dL AST (17-59) U/L ALT (21-72) U/L Alkaline Phosphatase (38-126) U/L Total Protein (6.3-8.3) g/dL Albumin (3.5-5.0) g/dL Globulin (2.2-3.9) gm/dL Albumin/Globulin Ratio (1.0-2.1) Laboratory Results - last 24 hr 05/11/16 05/11/16 05/11/16 03:29 08:49 12:13 WBC RBC Hgb Hct MCV MCH MCHC RDW Plt Count MPV Neut % (Auto) Lymph % (Auto) Sandoval % (Auto) Eos % (Auto) Baso % (Auto) Neut # Lymph # Sandoval # Eos # Baso # Neutrophils % (Manual) 71 Band Neutrophils % 1 Lymphocytes % (Manual) 21 Monocytes % (Manual) 6 Eosinophils % (Manual) 1 Nucleated RBC % 1 H Platelet Estimate Normal Poikilocytosis (manual Moderate Anisocytosis (manual) Slight Target Cells Slight Ovalocytes Slight Winthrop Cells Slight Schistocytes Slight Sodium Potassium Chloride Carbon Dioxide Anion Gap BUN Creatinine Est GFR ( Amer) Est GFR (Non-Af Amer) POC Glucose (mg/dL) 166 H 78 Random Glucose Calcium Phosphorus Magnesium Total Bilirubin AST ALT Alkaline Phosphatase Total Protein Albumin Globulin Albumin/Globulin Ratio 05/12/16 06:41 WBC 4.0 L RBC 3.63 L Hgb 8.5 L Hct 26.4 L MCV 72.6 L MCH 23.3 L MCHC 32.1 L RDW 18.3 H Plt Count 231 MPV 6.9 L Neut % (Auto) 61.9 Lymph % (Auto) 22.3 Sandoval % (Auto) 13.3 H Eos % (Auto) 0.7 Baso % (Auto) 1.8 Neut # 2.5 Lymph # 0.9 L Sandoval # 0.5 Eos # 0.0 Baso # 0.1 Neutrophils % (Manual) Band Neutrophils % Lymphocytes % (Manual) Monocytes % (Manual) Eosinophils % (Manual) Nucleated RBC % Platelet Estimate Poikilocytosis (manual Anisocytosis (manual) Target Cells Ovalocytes Sofi Cells Schistocytes Sodium 144 Potassium 3.1 L Chloride 107 Carbon Dioxide 25 Anion Gap 16 BUN 8 L Creatinine 0.7 L Est GFR ( Amer) > 60 Est GFR (Non-Af Amer) > 60 POC Glucose (mg/dL) Random Glucose 88 Calcium 7.8 L Phosphorus 2.6 Magnesium 1.7 Total Bilirubin 0.6 AST 34 ALT 29 Alkaline Phosphatase 41 Total Protein 5.8 L Albumin 2.8 L Globulin 3.0 Albumin/Globulin Ratio 0.9 L Attending/Attestation - Attestation I have personally seen and examined this patient.: Yes I have fully participated in the care of the patient.: Yes Notes (Text): 05/12/16 08:30 Today: April The Patient was seen and examined at the bedside, Medical records reviewed, all clinical/lab/hemodynamic/radiographic data were reviewed and management issues were discussed and formulated, Events reviewed Pain issues, skin care, head of the bed elevation, glycemic control were addressed. S/p TPA, no signs of bleeding, MRI reviewed Stable for transfer to telemetry Agree with above treatment plans as transcribed in Dr. Brothesr note
[2016-05-11] MEDS ORDERED: Dextrose 50% SYRINGE Inj (50 ml) IV STA (08:04)
[2016-05-11 08:39] LABS: EOSINOPHIL 1 % (0-4); NEUTROPHIL 71 % (50-75); NUCLEATED RED BLOOD CELL 1 % (0-0); TOTAL CELLS COUNTED 100
--- NOTE | 2016-05-11 08:45 | PN ---
DATE: 05/11/2016 TIME OF EVALUATION: 7:10 a.m. NEUROLOGICAL PROBLEM: Transient ischemic attack, hemispheric dysfunction manifesting with change in mental status, slurred speech, facial asymmetry. Been given TPA last night. PHYSICAL EXAMINATION: VITAL SIGNS: Blood pressure 103/54 with mean arterial pressure of 70, pulse rate 57 and regular, res piratory rate 15, temperature afebrile. NEUROLOGIC: The patient is more awake, alert, communicable. He is asking for water. Ice chips were given; he was able to swallow nicely. Some psychotic behavior happened with delusional touch. He m oves all 4 extremities against gravity. The patient is presenting with hard of hearing as well as vi brandon. The patient is scheduled to have MRI of the brain. Aspirin can be renewed tonight. The patient will be followed closely with you. Ernesto Wen MD cc: [id number] TT: 05/11/2016 08:44:25 Confirmation # [id number] Dictation # [id number] radha
--- NOTE | 2016-05-11 11:39 | CT ---
PROCEDURE: CT Angiography of the Brain. HISTORY: ACUTE CVA, S/P TPA COMPARISON: None available. TECHNIQUE: CT angiography of the intracranial arteries was performed. Coronal and sagittal maximum intensity projection reformated images were generated. FINDINGS: INTERNAL CEREBRAL ARTERIES: There is asymmetry in the size of the internal carotid arteries left larger than right. The intra cavernous portion is heavily calcified bilaterally. ANTERIOR CEREBRAL ARTERIES: Unremarkable. A1 and A2 segments are widely patent. Smaller distal branches unremarkable, as visualized. MIDDLE CEREBRAL ARTERIES: Unremarkable. M1 and M2 segments are widely patent. Perisylvian branches grossly symmetric. POSTERIOR CIRCULATION: Basilar Artery: Unremarkable. Distal Vertebral Arteries: Unremarkable. Posterior Cerebral Arteries: Unremarkable. Posterior Inferior Cerebellar Arteries: Unremarkable. ANEURYSM/ VASCULAR MALFORMATIONS: None. OTHER FINDINGS: The left frontal white matter infarct is less visible on the postcontrast study. IMPRESSION: No evidence of occlusion or significant stenosis
[2016-05-11] MEDS ORDERED: Sodium Chloride 0.9% 250 ML IV ONE (12:58)
[2016-05-11] MEDS: Dextrose 5%/0.9% NS 1,000 ML IV SCH ×2 (13:30→23:00)
--- NOTE | 2016-05-11 16:09 | CARD ---
APPROVED REPORT EKG Measurement Heart [id number] <Conclusion> Sinus bradycardia nonspecific ST changes Prolonged QT interval Borderline ECG
--- NOTE | 2016-05-11 16:36 | MRI ---
PROCEDURE: MRI BRAIN WITHOUT CONTRAST HISTORY: stroke COMPARISON: 04/10/2014 TECHNIQUE: Multiplanar, multisequence MR images of the brain were obtained without intravenous contrast enhancement. There was some motion artifact on the study FINDINGS: HEMORRHAGE: None DWI: No evidence of an acute or early subacute infarction. BRAIN PARENCHYMA: No mass effect or edema. Chronic microvascular changes are seen. There is a chronic white matter infarct in the left frontal lobe adjacent to the frontal horn. This is unchanged. There are no acute findings VENTRICLES: There is moderate atrophy CRANIUM: Unremarkable. ORBITS: Grossly unremarkable. PARANASAL SINUSES/MASTOIDS: Clear VASCULAR SYSTEM: Skull base flow voids intact. OTHER FINDINGS: None. IMPRESSION: Chronic microvascular changes. No acute intracranial findings.
[2016-05-12] MEDS: Dextrose 5%/0.9% NS 1,000 ML IV SCH ×3 (01:30→11:57)
[2016-05-12 06:44] LABS: BASO # 0.1 K/uL (0.0-0.2); BASO % 1.8 % (0.0-2.0); EOS % 0.7 % (0.0-4.0); HEMATOCRIT 26.4 % (35.0-51.0); LYMPH # 0.9 K/uL (1.0-4.3); LYMPH % 22.3 % (20.0-40.0); MEAN CELL VOLUME 72.6 fL (80.0-94.0); MEAN CORPUSCULAR HEMOGLOBIN 23.3 pg (27.0-31.0); MEAN CORPUSCULAR HGB CONC 32.1 g/dL (33.0-37.0); MEAN PLATELET VOLUME 6.9 fL (7.2-11.7); MONO # 0.5 K/uL (0.0-0.8); MONO % 13.3 % (0.0-10.0); NRBC % 0.4 % (0.0-2.0); RED CELL DISTRIBUTION WIDTH 18.3 % (11.5-14.5)
[2016-05-12 06:52] LABS: CHLORIDE 107 mmol/L (98-107); POTASSIUM 3.1 mmol/L (3.6-5.2); SODIUM 144 mmol/L (132-148)
[2016-05-12 06:54] LABS: BILIRUBIN,TOTAL 0.6 mg/dL (0.2-1.3); GFR AFRICAN-AMERICAN > 60
[2016-05-12 06:55] LABS: ALB/GLOB RATIO 0.9 (1.0-2.1); ALKALINE PHOSPHATASE 41 U/L (38-126); ALT/SGPT 29 U/L (21-72); AST/SGOT 34 U/L (17-59); BLOOD UREA NITROGEN 8 mg/dL (9-20); CALCIUM 7.8 mg/dl (8.6-10.4); CARBON DIOXIDE 25 mmol/L (22-30); GLUCOSE,RANDOM 88 mg/dL (75-110); PHOSPHOROUS 2.6 mg/dL (2.5-4.5); TOTAL PROTEIN 5.8 g/dL (6.3-8.3)
[2016-05-12 06:56] LABS: MAGNESIUM 1.7 mg/dL (1.6-2.3)
--- NOTE | 2016-05-12 07:04 | CP.CCUPN ---
<[employer] - Last Filed: 05/12/16 12:06> CCU Subjective - Physician Review Subjective (Free Text): 05/11/16 21:15 Pt seen and examined and extremely agitated- thrashing about continuously. Pt to have MRI today to rule out acute underlying changes in hours after suspected CVA. Per nursing, confused , disoriented and combative. Patient needed to be sedated at times. An ROS could not be obtained secondarily to presentation. 05/12/16 11:06 Pt seen and examined in confused statement. Patient keeps calling out and occasionally combative at times. Patient does not seem to always follow commands ; aphasic. An ROS could not be obtained at this time due to patient presentation. CCU Objective - Vital Signs / Intake & Output Intake and Output (Last 8hrs): Intake & Output 05/11/16 05/12/16 05/12/16 22:59 06:59 14:59 Intake Total 500 Balance 500 Intake: Intake, IV Amount 500 Left Forearm 500 - Physical Exam Head: Positive for: Atraumatic, Normocephalic Respiratory/Chest: Positive for: Good Air Exchange. Negative for: Respiratory Distress, Wheezes Cardiovascular: Positive for: Normal S1, S2 Abdomen: Negative for: Tenderness, Distention Upper Extremity: Positive for: Capillary Refill < 2s, Other (4/5 muscle strength in UE b/l) Lower Extremity: Positive for: NORMAL PULSES, Other (3/5 muscle strength in LE - was not able to comply with most of evaluation- combative) Neurological: Positive for: Other (could not assess- patient combative). Negative for: Speech Normal Skin: Positive for: Warm, Dry Psychiatric: Positive for: Anxious, Agitated - Medications Active Medications: Active Medications Generic Name Dose Route Start Last Admin Trade Name Freq PRN Reason Stop Dose Admin Aspirin 81 mg 05/11/16 10:00 05/11/16 10:00 Ecotrin PO 81 mg DAILY CHRISTIANA Administration Famotidine 20 mg 05/11/16 13:00 05/11/16 21:30 Pepcid IVP 20 mg Q12 CHRISTIANA Administration Dextrose/Sodium Chloride 1,000 mls @ 100 mls/hr 05/11/16 13:00 05/12/16 01:30 Dextrose 5%/0.9% Ns 1000 Ml IV 100 mls/hr .Q10H CHRISTIANA Administration - Patient Studies Lab Studies: Microbiology Studies 05/10/16 Unknown MRSA Culture (Admit) - Final Naris MRSA NOT DETECTED Lab Studies 05/12/16 05/11/16 05/11/16 Range/Units 06:41 12:13 08:49 WBC 4.0 L (4.8-10.8) K/uL RBC 3.63 L (4.40-5.90) Mil/uL Hgb 8.5 L (12.0-18.0) g/dL Hct 26.4 L (35.0-51.0) % MCV 72.6 L (80.0-94.0) fL MCH 23.3 L (27.0-31.0) pg MCHC 32.1 L (33.0-37.0) g/dL RDW 18.3 H (11.5-14.5) % Plt Count 231 (130-400) K/uL MPV 6.9 L (7.2-11.7) fL Neut % (Auto) 61.9 (50.0-75.0) % Lymph % (Auto) 22.3 (20.0-40.0) % [place] % (Auto) 13.3 H (0.0-10.0) % Eos % (Auto) 0.7 (0.0-4.0) % Baso % (Auto) 1.8 (0.0-2.0) % Neut # 2.5 (1.8-7.0) K/uL Lymph # 0.9 L (1.0-4.3) K/uL Tr[place]ble # 0.5 (0.0-0.8) K/uL Eos # 0.0 (0.0-0.7) K/uL Baso # 0.1 (0.0-0.2) K/uL Neutrophils % (Manual) (50-75) % Band Neutrophils % (0-2) % Lymphocytes % (Manual) (20-40) % Monocytes % (Manual) (0-10) % Eosinophils % (Manual) (0-4) % Nucleated RBC % (0-0) % Platelet Estimate (NORMAL) Poikilocytosis (manual Anisocytosis (manual) Target Cells Ovalocytes Sofi Cells Schistocytes Sodium 144 (132-148) mmol/L Potassium 3.1 L (3.6-5.2) mmol/L Chloride 107 (98-107) mmol/L Carbon Dioxide 25 (22-30) mmol/L Anion Gap 16 (10-20) BUN 8 L (9-20) mg/dL Creatinine 0.7 L (0.8-1.5) MG/DL Est GFR ( Amer) > 60 Est GFR (Non-Af Amer) > 60 POC Glucose (mg/dL) 78 166 H (65-110) mg/dL Random Glucose 88 (75-110) mg/dL Calcium 7.8 L (8.6-10.4) mg/dl Phosphorus 2.6 (2.5-4.5) mg/dL Magnesium 1.7 (1.6-2.3) mg/dL Total Bilirubin 0.6 (0.2-1.3) mg/dL AST 34 (17-59) U/L ALT 29 (21-72) U/L Alkaline Phosphatase 41 (38-126) U/L Total Protein 5.8 L (6.3-8.3) g/dL Albumin 2.8 L (3.5-5.0) g/dL Globulin 3.0 (2.2-3.9) gm/dL Albumin/Globulin Ratio 0.9 L (1.0-2.1) 05/11/16 05/11/16 Range/Units 08:09 03:29 WBC (4.8-10.8) K/uL RBC (4.40-5.90) Mil/uL Hgb (12.0-18.0) g/dL Hct (35.0-51.0) % MCV (80.0-94.0) fL MCH (27.0-31.0) pg MCHC (33.0-37.0) g/dL RDW (11.5-14.5) % Plt Count (130-400) K/uL MPV (7.2-11.7) fL Neut % (Auto) (50.0-75.0) % Lymph % (Auto) (20.0-40.0) % [place] % (Auto) (0.0-10.0) % Eos % (Auto) (0.0-4.0) % Baso % (Auto) (0.0-2.0) % Neut # (1.8-7.0) K/uL Lymph # (1.0-4.3) K/uL Tr[place]ble # (0.0-0.8) K/uL Eos # (0.0-0.7) K/uL Baso # (0.0-0.2) K/uL Neutrophils % (Manual) 71 (50-75) % Band Neutrophils % 1 (0-2) % Lymphocytes % (Manual) 21 (20-40) % Monocytes % (Manual) 6 (0-10) % Eosinophils % (Manual) 1 (0-4) % Nucleated RBC % 1 H (0-0) % Platelet Estimate Normal (NORMAL) Poikilocytosis (manual Moderate Anisocytosis (manual) Slight Target Cells Slight Ovalocytes Slight [place] Cells Slight Schistocytes Slight Sodium (132-148) mmol/L Potassium (3.6-5.2) mmol/L Chloride (98-107) mmol/L Carbon Dioxide (22-30) mmol/L Anion Gap (10-20) BUN (9-20) mg/dL Creatinine (0.8-1.5) MG/DL Est GFR ( Amer) Est GFR (Non-Af Amer) POC Glucose (mg/dL) 47 L (65-110) mg/dL Random Glucose (75-110) mg/dL Calcium (8.6-10.4) mg/dl Phosphorus (2.5-4.5) mg/dL Magnesium (1.6-2.3) mg/dL Total Bilirubin (0.2-1.3) mg/dL AST (17-59) U/L ALT (21-72) U/L Alkaline Phosphatase (38-126) U/L Total Protein (6.3-8.3) g/dL Albumin (3.5-5.0) g/dL Globulin (2.2-3.9) gm/dL Albumin/Globulin Ratio (1.0-2.1) Laboratory Results - last 24 hr 05/11/16 05/11/16 05/11/16 03:29 08:09 08:49 WBC RBC Hgb Hct MCV MCH MCHC RDW Plt Count MPV Neut % (Auto) Lymph % (Auto) [place] % (Auto) Eos % (Auto) Baso % (Auto) Neut # Lymph # [place] # Eos # Baso # Neutrophils % (Manual) 71 Band Neutrophils % 1 Lymphocytes % (Manual) 21 Monocytes % (Manual) 6 Eosinophils % (Manual) 1 Nucleated RBC % 1 H Platelet Estimate Normal Poikilocytosis (manual Moderate Anisocytosis (manual) Slight Target Cells Slight Ovalocytes Slight Sofi Cells Slight Schistocytes Slight Sodium Potassium Chloride Carbon Dioxide Anion Gap BUN Creatinine Est GFR ( Amer) Est GFR (Non-Af Amer) POC Glucose (mg/dL) 47 L 166 H Random Glucose Calcium Phosphorus Magnesium Total Bilirubin AST ALT Alkaline Phosphatase Total Protein Albumin Globulin Albumin/Globulin Ratio 05/11/16 05/12/16 12:13 06:41 WBC 4.0 L RBC 3.63 L Hgb 8.5 L Hct 26.4 L MCV 72.6 L MCH 23.3 L MCHC 32.1 L RDW 18.3 H Plt Count 231 MPV 6.9 L Neut % (Auto) 61.9 Lymph % (Auto) 22.3 [place] % (Auto) 13.3 H Eos % (Auto) 0.7 Baso % (Auto) 1.8 Neut # 2.5 Lymph # 0.9 L [place]ble # 0.5 Eos # 0.0 Baso # 0.1 Neutrophils % (Manual) Band Neutrophils % Lymphocytes % (Manual) Monocytes % (Manual) Eosinophils % (Manual) Nucleated RBC % Platelet Estimate Poikilocytosis (manual Anisocytosis (manual) Target Cells Ovalocytes [place] Cells Schistocytes Sodium 144 Potassium 3.1 L Chloride 107 Carbon Dioxide 25 Anion Gap 16 BUN 8 L Creatinine 0.7 L Est GFR ( Amer) > 60 Est GFR (Non-Af Amer) > 60 POC Glucose (mg/dL) 78 Random Glucose 88 Calcium 7.8 L Phosphorus 2.6 Magnesium 1.7 Total Bilirubin 0.6 AST 34 ALT 29 Alkaline Phosphatase 41 Total Protein 5.8 L Albumin 2.8 L Globulin 3.0 Albumin/Globulin Ratio 0.9 L Fingerstick Blood Sugar Results: 95 Review of Systems - Review of Systems Review of Systems: as noted in subjective; baseline confused, combative Assessment/Plan - Assessment and Plan (Free Text) Assessment: 89yo male care home resident with PMH of HTN, anemia, GERD, dementia, OA, brought in to ED with code stroke. Pt was evaluated in the ED and received IV tPA bolus at 4:02pm on 05/10. Pt tolerated with noted improvement. Pt transferred to ICU for close monitoring. MRI results ruled out acute or subacute infarction. Patient to be transferred to telemetry. Plan: Neuro: combative, improved muscle strength, confused s/p initial stroke (NIHSS score of 7) s/p IV tPA bolus Recent hx of falls (04/28/16) - recently treated at 05/10/16 CT head: New 1.8 x 1.7 centimeter hypodense area in the left frontal white matter could represent an area of acute/ early subacute ischemic injury. 04/28/16 CT head: No acute intracranial abnormality. Mild chronic microangiopathic changes and moderate age-related global parenchymal volume loss. Neurology (Dr. Wen) on the case - help appreciated Dr. Wen wants CT angio performed after tPA. F/U recommendations Neuro checks Patient to have EEG, carotid dopplers, echo studies as well- patient has not been able to comply with any studies as of yet due to combativeness. May need to be sedated MRI- no evidence of acute or subacute infarction; chronic microvascular changes ASA 81 mg, Statin: Crestor 5 QHS, 2.5mg PO daily with hold parameters. Cardio: Hx of HTN Currently normotensive- occasionally hypotensive; maintenance fluids dec ns 50cc /hr HR ranges from 48-92 05/01/16 ECG: NSR, low-voltage QRS, borderline ECG 04/28/16 ECG: Sinus bradycardia, early repolarization, otherwise normal ECG. 04/08/14 Echo: LVEF 55-60%, diastolic dysfunction, trace to mild TR. Troponin I <0.0120 Total CK 466 Home meds held: Atenolol 50mg PO daily ASA 81 mg, Statin: Crestor 5 QHS, 2.5mg PO daily with hold parameters. Pulm: stable 05/10/16 CXR: Linear opacities in the lung bases. 04/28/16 CXR: Mild venous congestion with atelectatic changes in the left hilar region and left lung base. Left apical granuloma. Patchy right basilar atelectasis. Nodular density in the right hilar rate region may represent vessel on end. GI: Hx of GERD Hiatal hernia 04/28/16 CXR: Large hiatal hernia Heme: Hx of Anemia s/p tpa coags wnl cont to monitor Endo: Maintain euglycemia Nephro: BUN/Cr 15/ stable Electrolytes within normal limits Monitor IVF fluids : Questionable BPH hx Redd catheter may be placed Home meds held:Flomax MSK ID: WBC: stable Monitor CBC Prophylaxis: Anticoagulation precautions for 24 hours after tPA infusion. will begin after 24 hr period. ASA for now per Neurology. Pepcid IV Q 12 Disp- Medically stable for transfer to Tele floor. Primary Dr. Kelley attempted to be reached yesterday afternoon and this morning on multiple occasions. Will reattempt. <Luis Armando Nelson M - Last Filed: 05/12/16 15:36> CCU Objective - Vital Signs / Intake & Output Vital Signs (Last 4 hours): Vital Signs Temp Pulse Resp BP Pulse Ox 05/12/16 14:05 46 L 12 120/50 L 99 05/12/16 14:00 55 L 14 100 05/12/16 13:35 51 L 11 L 58/32 L 100 05/12/16 13:00 51 L 12 98 05/12/16 12:34 52 L 12 96/53 L 100 05/12/16 12:14 52 L 12 99 05/12/16 12:00 96.7 F L 53 L 12 142/66 100 05/12/16 11:37 54 L 12 142/66 99 Intake and Output (Last 8hrs): Intake & Output 05/12/16 05/12/16 05/12/16 06:59 14:59 22:59 Intake Total 300 Output Total 600 Balance -300 Intake: Oral 300 Output: Urine 600 Urine, Voided 600 - Medications Active Medications: Active Medications Generic Name Dose Route Start Last Admin Trade Name Heathq PRN Reason Stop Dose Admin Aspirin 81 mg 05/11/16 10:00 05/12/16 10:11 Ecotrin PO 81 mg DAILY CHRISTIANA Administration Famotidine 20 mg 05/11/16 13:00 05/12/16 10:11 Pepcid IVP 20 mg Q12 CHRISTIANA Administration Dextrose/Sodium Chloride 1,000 mls @ 50 mls/hr 05/12/16 11:30 05/12/16 11:57 Dextrose 5%/0.9% Ns 1000 Ml IV 50 mls/hr .Q20H CHRISTIANA Administration Lisinopril 2.5 mg 05/13/16 10:00 Zestril PO DAILY CHRISTIANA Rosuvastatin Calcium 5 mg 05/12/16 22:00 Crestor PO HS [facility] - Patient Studies Lab Studies: Microbiology Studies 05/10/16 Unknown MRSA Culture (Admit) - Final Naris MRSA NOT DETECTED Lab Studies 05/12/16 05/12/16 Range/Units 14:00 06:41 WBC 4.0 L (4.8-10.8) K/uL RBC 3.63 L (4.40-5.90) Mil/uL Hgb 8.5 L (12.0-18.0) g/dL Hct 26.4 L (35.0-51.0) % MCV 72.6 L (80.0-94.0) fL MCH 23.3 L (27.0-31.0) pg MCHC 32.1 L (33.0-37.0) g/dL RDW 18.3 H (11.5-14.5) % Plt Count 231 (130-400) K/uL MPV 6.9 L (7.2-11.7) fL Neut % (Auto) 61.9 (50.0-75.0) % Lymph % (Auto) 22.3 (20.0-40.0) % [place] % (Auto) 13.3 H (0.0-10.0) % Eos % (Auto) 0.7 (0.0-4.0) % Baso % (Auto) 1.8 (0.0-2.0) % Neut # 2.5 (1.8-7.0) K/uL Lymph # 0.9 L (1.0-4.3) K/uL Tr[place]ble # 0.5 (0.0-0.8) K/uL Eos # 0.0 (0.0-0.7) K/uL Baso # 0.1 (0.0-0.2) K/uL Sodium 144 (132-148) mmol/L Potassium 3.1 L (3.6-5.2) mmol/L Chloride 107 (98-107) mmol/L Carbon Dioxide 25 (22-30) mmol/L Anion Gap 16 (10-20) BUN 8 L (9-20) mg/dL Creatinine 0.7 L (0.8-1.5) MG/DL Est GFR ( Amer) > 60 Est GFR (Non-Af Amer) > 60 POC Glucose (mg/dL) 84 (65-110) mg/dL Random Glucose 88 (75-110) mg/dL Calcium 7.8 L (8.6-10.4) mg/dl Phosphorus 2.6 (2.5-4.5) mg/dL Magnesium 1.7 (1.6-2.3) mg/dL Total Bilirubin 0.6 (0.2-1.3) mg/dL AST 34 (17-59) U/L ALT 29 (21-72) U/L Alkaline Phosphatase 41 (38-126) U/L Total Protein 5.8 L (6.3-8.3) g/dL Albumin 2.8 L (3.5-5.0) g/dL Globulin 3.0 (2.2-3.9) gm/dL Albumin/Globulin Ratio 0.9 L (1.0-2.1) Laboratory Results - last 24 hr 05/12/16 05/12/16 06:41 14:00 WBC 4.0 L RBC 3.63 L Hgb 8.5 L Hct 26.4 L MCV 72.6 L MCH 23.3 L MCHC 32.1 L RDW 18.3 H Plt Count 231 MPV 6.9 L Neut % (Auto) 61.9 Lymph % (Auto) 22.3 [place] % (Auto) 13.3 H Eos % (Auto) 0.7 Baso % (Auto) 1.8 Neut # 2.5 Lymph # 0.9 L [place]ble # 0.5 Eos # 0.0 Baso # 0.1 Sodium 144 Potassium 3.1 L Chloride 107 Carbon Dioxide 25 Anion Gap 16 BUN 8 L Creatinine 0.7 L Est GFR ( Amer) > 60 Est GFR (Non-Af Amer) > 60 POC Glucose (mg/dL) 84 Random Glucose 88 Calcium 7.8 L Phosphorus 2.6 Magnesium 1.7 Total Bilirubin 0.6 AST 34 ALT 29 Alkaline Phosphatase 41 Total Protein 5.8 L Albumin 2.8 L Globulin 3.0 Albumin/Globulin Ratio 0.9 L Critical Care Progress Note - Nutrition Nutrition: Nutrition Category Date Time Status Dysphagia/Modified Consistency Diet [DIET] Diets 05/12/16 Lunch Active Attending/Attestation - Attestation I have personally seen and examined this patient.: Yes I have fully participated in the care of the patient.: Yes I have reviewed all pertinent clinical information: Yes Notes (Text): 05/12/16 15:35 Today: Thursday, May 12, 2016 The Patient was seen and examined at the bedside, Medical records reviewed, all clinical/lab/hemodynamic/radiographic data were reviewed and management issues were discussed and formulated, Events reviewed Pain issues, skin care, head of the bed elevation, glycemic control were addressed. Agree with above treatment plans as transcribed in Dr. Deneen cifuentes
--- NOTE | 2016-05-12 07:36 | EEG ---
DATE: 05/10/2016 This is a 16-channel electroencephalogram of awake and confused adult. During the study, photic stim ulation was performed. Hyperventilation was not performed. The resting electroencephalogram consists of diffuse 6-7 Hz high theta activity seen superimposed wit h beta activity seen at parietal and occipital leads. Anteriorly fast activity superimposed with 2-3 Hz delta activity seen at frontal and central leads. During the photic stimulation, there is focal high amplitude theta activity seen over left frontal leads. IMPRESSION: This is an abnormal electroencephalogram because of persistent slowing throughout the re cord suggestive of bilateral cerebral dysfunction. This is probably secondary to metabolic vascular or degenerative process. During the study, neither electroencephalographic paroxysmal activities nor focal slowing noted. Ernesto Wen MD cc: [id number] TT: 05/12/2016 07:35:42 Confirmation # [id number] Dictation # [id number] mn
--- NOTE | 2016-05-12 07:38 | PN ---
DATE: 05/12/2016 PHYSICAL EXAMINATION: VITAL SIGNS: Blood pressure 114/54, mean arterial pressure of 74, respiratory rate 16, temperature 9 7.2 with a pulse rate of 57. NEUROLOGIC: The patient is more awake, alert. Constantly talking by himself. He follows commands. 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 However, al l 4 extremities he moves against gravity. WORKUP: MRI of the brain: No acute pathology noted. EEG also showed diffuse slow activities without any paroxysmal activities. RECOMMENDATIONS: When medically stable, the patient can be transferred to telemetry, and from there the patient can be transferred to his shelter. Ernesto Wen MD cc: [id number] TT: 05/12/2016 07:37:54 Confirmation # [id number] Dictation # [id number] radha
--- NOTE | 2016-05-12 07:52 | HP ---
HISTORY OF PRESENT ILLNESS: This is an 89-year-old female with history of multiple medical problems, was in subacute rehabilitation at [facility] when he was noticed to have slurred speech and facial droop. The patient was brought to Emergency Room where he was evaluated and, due to the defined onset of symptoms, patient was given TPA as per neurology recommendations with resolut ion of all his symptoms. The patient was admitted to intensive care unit for further observation and management. The patient is confused and he is not giving history at the time of this examination. REVIEW OF SYSTEMS: Other review of systems could not also be obtained. ALLERGIES: No known allergy. HOME MEDICATIONS: Include Flomax 0.4 mg daily, atenolol 50 mg daily, Ativan 1 mg at bedtime, ferrous sulfate 325 mg daily, aspirin 81 mg daily. PAST MEDICAL HISTORY: Hypertension, benign prostatic hypertrophy, degenerative spine disease, unstea diness with frequent falls. SOCIAL HISTORY: No history of smoking, ETOH or substance abuse. FAMILY HISTORY: Not available. PHYSICAL EXAMINATION: GENERAL: The patient is in bed, not in any cardiopulmonary distress at the time of this examination. VITAL SIGNS: Blood pressure 115/46, temperature 97.4, respiratory rate 15, pulse 57. HEENT: Pupils equal, reactive to light. Normal-appearing mucosa of the conjunctivae, oropharyngeal and nasal membrane mucosa. NECK: Supple. No JVD, no carotid bruit, no lymph node, no thyromegaly. CHEST AND LUNGS: Bilateral symmetrical expansion, good air exchange, no rales, no rhonchi. CARDIOVASCULAR: PMI not localized. S1, S2. No additional sounds. ABDOMEN: Normoactive bowel sounds. No tenderness, no organomegaly, no masses. EXTREMITIES: No cyanosis, no clubbing, no edema. CENTRAL NERVOUS SYSTEM: The patient is awake, but confused and moves all extremities equally. ASSESSMENT: 1. Acute cerebrovascular accident, completely resolved after patient was given tissue plasminogen ac tivator. 2. Hypotension with benign prostatic hypertrophy. The patient to continue ICU care, speech therapy for swallowing evaluation. Follow up with neurology recommendations. [facility] Primo Kelley MD cc: [phone] TT: 05/12/2016 07:51:07 mn
[2016-05-12] MEDS: Potassium Chloride 20 mEq 100 ML IVPB SCH ×3 (08:55→11:58)
[2016-05-12] MEDS ORDERED: Dextrose 50% SYRINGE Inj (50 ml) ONE (14:06)
[2016-05-12] MEDS ORDERED: Dextrose 50% SYRINGE Inj (50 ml) IV STA (14:13)
--- NOTE | 2016-05-12 17:26 | VASCLAB ---
PROCEDURE: HISTORY: stenosis COMPARISON: None available. TECHNIQUE: Grayscale and duplex Doppler evaluation of the cervical carotid and vertebral arteries were performed. The common carotid, carotid bifurcations and cervical Internal Carotid Artery (ICA) and proximal External Carotid Artery (ECA) were evaluated. The vertebral arteries were evaluated for gross patency and flow direction. Report prepared by Bryan Jasso, BS, RVT FINDINGS: RIGHT CAROTID ARTERIES: 1. Common Carotid Artery: No significant focal plaque formation of the right common carotid artery. Maximum Peak Systolic velocity: 49 cm/sec: End-diastolic velocity 7 cm/sec. 2. Carotid Bifurcation: Calcific plaque formation. Maximum Peak Systolic velocity: 45 cm/sec: End-diastolic velocity 9 cm/sec. 3. Internal Carotid Artery: Minimal plaque formation of the right proximal ICA which does not result in hemodynamically significant stenosis. Plaque description: Heterogeneous 3.1. Proximal Segment: Peak systolic velocity 64 cm/sec: End-diastolic velocity 11 cm/sec - % stenosis 0-15% 3.2. Middle Segment: Peak systolic velocity 84 cm/sec: End-diastolic velocity 19 cm/sec - % stenosis 0-15% 3.3. Distal Segment: Peak systolic velocity 81 cm/sec: End-diastolic velocity 21 cm/sec - % stenosis 0-15% 4. External Carotid Artery: No significant focal plaque formation. Peak systolic velocity 55 cm/sec 5. ICA/CCA Ratio: 1.7 LEFT CAROTID ARTERIES: 1. Common Carotid Artery: No significant focal plaque formation of the left common carotid artery. Maximum Peak Systolic velocity: 58 cm/sec: End-diastolic velocity 9 cm/sec. 2. Carotid Bifurcation: Calcific plaque formation. Maximum Peak Systolic velocity: 66 cm/sec: End-diastolic velocity 6 cm/sec. 3. Internal Carotid Artery: Plaque description: 3.1. Proximal Segment: Peak systolic velocity 59 cm/sec: End-diastolic velocity 12 cm/sec - % stenosis 0-15% 3.2. Middle Segment: Peak systolic velocity 90 cm/sec: End-diastolic velocity 16 cm/sec - % stenosis 0-15% 3.3. Distal Segment: Peak systolic velocity 74 cm/sec: End-diastolic velocity 11 cm/sec - % stenosis 0-15% 4. External Carotid Artery: No significant focal plaque formation. Peak systolic velocity 64 cm/sec 5. ICA/CCA Ratio: 1.6 VERTEBRAL ARTERIES: 1. Right Vertebral Artery: The right vertebral artery flow direction is antegrade. 2. Left Vertebral Artery: The left vertebral artery flow direction is antegrade. OTHER FINDINGS: 1. Right Brachial Blood pressure: 96 mmHg. 2. Left Brachial Blood pressure: mmHg. IMPRESSION: RIGHT: Duplex scan does not suggest hemodynamically significant stenosis of the right extracranial carotid arteries. LEFT: Duplex scan does not suggest hemodynamically significant stenosis of the left extracranial carotid arteries.
[2016-05-13 06:52] LABS: BASO # 0.1 K/uL (0.0-0.2); EOS % 0.5 % (0.0-4.0); LYMPH # 1.2 K/uL (1.0-4.3)
[2016-05-13 07:05] LABS: CHLORIDE 111 mmol/L (98-107)
[2016-05-13 07:06] LABS: POTASSIUM 3.9 mmol/L (3.6-5.2); SODIUM 144 mmol/L (132-148)
[2016-05-13 07:08] LABS: ALB/GLOB RATIO 0.8 (1.0-2.1); ALKALINE PHOSPHATASE 38 U/L (38-126); ALT/SGPT 38 U/L (21-72); AST/SGOT 36 U/L (17-59); BILIRUBIN,TOTAL 0.8 mg/dL (0.2-1.3); BLOOD UREA NITROGEN 5 mg/dL (9-20); CARBON DIOXIDE 24 mmol/L (22-30); GFR AFRICAN-AMERICAN > 60; GLUCOSE,RANDOM 66 mg/dL (75-110)
[2016-05-13 07:09] LABS: CALCIUM 7.9 mg/dl (8.6-10.4); MAGNESIUM 1.7 mg/dL (1.6-2.3); PHOSPHOROUS 2.5 mg/dL (2.5-4.5)
[2016-05-13 07:11] LABS: BASO % 1.4 % (0.0-2.0); HEMATOCRIT 26.5 % (35.0-51.0); LYMPH % 27.2 % (20.0-40.0); MEAN CELL VOLUME 72.3 fL (80.0-94.0); MEAN CORPUSCULAR HEMOGLOBIN 23.3 pg (27.0-31.0); MEAN CORPUSCULAR HGB CONC 32.2 g/dL (33.0-37.0); MEAN PLATELET VOLUME 7.6 fL (7.2-11.7); MONO # 0.5 K/uL (0.0-0.8); MONO % 12.6 % (0.0-10.0); NRBC % 0.9 % (0.0-2.0); RED CELL DISTRIBUTION WIDTH 18.5 % (11.5-14.5); WHITE BLOOD COUNT 4.2 K/uL (4.8-10.8)
[2016-05-13] MEDS: Dextrose 5%/0.9% NS 1,000 ML IV SCH (10:20)
--- NOTE | 2016-05-13 17:01 | PN ---
DATE: 05/13/[address] Kelley. There is no reported hypotension or ventricular arrhythmia. No reported seizures. PHYSICAL EXAMINATION: VITAL SIGNS: Blood pressure 125/63, heart rate , temperature 98, respirations 16. HEENT: Pale conjunctivae. CHEST: Clear. HEART: S1, S2 regular. EXTREMITIES: Significant muscle wasting. LABORATORIES: CBC: WBC 4.2, hemoglobin 8.5, hematocrit 26.5, platelet count 254,000. SMA-7: Sodiu m 144, potassium 3.9, chloride 111, CO2 of 24, glucose 66, BUN 5, creatinine 0.8. Brain MRI on the 03 03 revealed chronic microvascular changes. ASSESSMENT: 1. Acute cerebrovascular accident completely resolved after tissue plasminogen activator. 2. Anemia. 3. Benign prostatic hypertrophy. RECOMMENDATIONS: Continue Crestor at 5 mg once a day, aspirin 81 mg once a day, Zestril t 2.5 mg onc e a day. The patient will be transferred to telemetry. The case was discussed with the patient's so n at the bedside. Jerald Kenny MD cc: [id number] TT: 05/13/2016 17:00:11 Confirmation # [id number] Dictation # [id number] dn
[2016-05-14] MEDS: Dextrose 5%/0.9% NS 1,000 ML IV SCH ×2 (03:47→14:39)
--- NOTE | 2016-05-14 08:55 | CARD ---
APPROVED REPORT EXAM: Two-dimensional and M-mode echocardiogram with Doppler and color Doppler. Other Information Quality : Technically LimitedRhythm : NSR INDICATION CVA/TIA Syncope RISK FACTORS Hypertension Aortic Valve AoV Peak Bkwjewkd94.4cm/Jevon Peak GR.3mmHg Mitral Valve MV E Uzbuhwfn57.5cm/sMV A Zshxpgmo91.8cm/sE/A ratio0.6 TDI E/Lateral E'0.0E/Medial E'0.0 Tricuspid Valve TR Peak Duuhbkuw647dv/sTR Peak Gr.[id number] LEFT VENTRICLE The left ventricle is normal size. There is borderline to mild concentric left ventricular hypertrophy. The left ventricular function is normal. The left ventricular ejection fraction is within the normal range. No regional wall motion abnormalities noted. Transmitral Doppler flow pattern is Grade I-abnormal relaxation pattern. No left ventricle thrombus noted on this study. There is no ventricular septal defect visualized. There is no left ventricular aneurysm. There is no mass noted in the left ventricle. RIGHT VENTRICLE The right ventricle is normal size. There is normal right ventricular wall thickness. The right ventricular systolic function is normal. ATRIA The left atrium size is normal. The right atrium size is normal. The interatrial septum is intact with no evidence for an atrial septal defect. AORTIC VALVE The aortic valve is normal in structure and function. No aortic regurgitation is present. There is no aortic valvular stenosis. There is no aortic valvular vegetation. MITRAL VALVE The mitral valve is normal in structure and function. There is no evidence of mitral valve prolapse. There is no mitral valve stenosis. There is no mitral valve regurgitation noted. TRICUSPID VALVE The tricuspid valve is normal in structure. There is mild tricuspid regurgitation. There is no tricuspid valve prolapse or vegetation. There is no tricuspid valve stenosis. PULMONIC VALVE The pulmonary valve is NWV There is no pulmonic valvular regurgitation. There is no pulmonic valvular stenosis. GREAT VESSELS The aortic root is normal in size. The ascending aorta is normal in size. The pulmonary artery is normal. The IVC is normal in size and collapses >50% with inspiration. PERICARDIAL EFFUSION The pericardium appears normal. There is no pleural effusion. <Conclusion> TDS NOT ALL WALL SEGMENTS CLEARLY VISUALIZED The left ventricular function is normal. The left ventricular ejection fraction is within the normal range. Transmitral Doppler flow pattern is Grade I-abnormal relaxation pattern. There is mild tricuspid regurgitation. There is borderline to mild concentric left ventricular hypertrophy.
--- NOTE | 2016-05-14 19:22 | PN ---
DATE: 05/14/2016 The patient is currently confused, but not agitated. No reported ventricular arrhythmia. OBJECTIVE: VITAL SIGNS: Blood pressure 143/74, heart rate 71, temperature 97.9, respirations 20. HEENT: Pale conjunctivae. CHEST: Clear. HEART: S1, S2 regular. EXTREMITIES: Significant muscle wasting. LABORATORY DATA: Urine culture is positive for Pseudomonas aeruginosa. Blood culture is negative af ter 3 days. ASSESSMENT: 1. Acute cerebrovascular accident, status post tissue plasminogen activator. 2. Urinary tract infection with Pseudomonas aeruginosa. 3. Hypertension. PLAN: Continue current Crestor at 5 mg once a day, aspirin 81 mg once a day and Zestril 2.5 mg once a day, request infectious disease consult from . Jerald Kenny MD cc: [id number] TT: 05/14/2016 19:21:38 Confirmation # [id number] Dictation # [id number] dn
[2016-05-14 20:04] LABS: BASO % 1.3 % (0.0-2.0); EOS % 0.3 % (0.0-4.0); HEMATOCRIT 25.3 % (35.0-51.0); LYMPH # 0.5 K/uL (1.0-4.3); LYMPH % 16.1 % (20.0-40.0); MEAN CELL VOLUME 72.8 fL (80.0-94.0); MEAN CORPUSCULAR HGB CONC 31.6 g/dL (33.0-37.0); MEAN PLATELET VOLUME 7.5 fL (7.2-11.7); MONO # 0.5 K/uL (0.0-0.8); MONO % 16.8 % (0.0-10.0); NRBC % 0.8 % (0.0-2.0); RED CELL DISTRIBUTION WIDTH 18.3 % (11.5-14.5); WHITE BLOOD COUNT 3.2 K/uL (4.8-10.8)
[2016-05-14 20:11] LABS: CHLORIDE 108 mmol/L (98-107); POTASSIUM 3.6 mmol/L (3.6-5.2); SODIUM 141 mmol/L (132-148)
[2016-05-14 20:13] LABS: GFR AFRICAN-AMERICAN > 60
[2016-05-14 20:14] LABS: ALB/GLOB RATIO 0.7 (1.0-2.1); ALKALINE PHOSPHATASE 34 U/L (38-126); ALT/SGPT 35 U/L (21-72); AST/SGOT 25 U/L (17-59); BILIRUBIN,DIRECT 0.3 mg/dL (0.0-0.4); BILIRUBIN,TOTAL 0.8 mg/dL (0.2-1.3); BLOOD UREA NITROGEN 5 mg/dL (9-20); CALCIUM 7.7 mg/dl (8.6-10.4); CARBON DIOXIDE 26 mmol/L (22-30); GLUCOSE,RANDOM 105 mg/dL (75-110); TOTAL PROTEIN 5.6 g/dL (6.3-8.3)
[2016-05-14] MEDS: Meropenem 500 MG in Sodium Chloride 0.9% 100 ML IVPB SCH (21:33)
--- NOTE | 2016-05-14 23:58 | CP.PCM.CON ---
History of Present Illness - History of Present Illness History of Present Illness: HISTORY OF PRESENT ILLNESS; 89-year-old male retirement resident of [facility] who was brought in on by EMS for sudden onset of dysarthria and right-sided facial droop with as per retirement staff. Patient has history of hypertension and anemia, GERD, osteoarthritis and dementia. Patient also was recently discharged from [facility] for about a week prior to this admission status post fall and a hip contusion. Code stroke was called and patient received TPA and CT ANGIO of the BRAIN as per neurologist Dr. Moses on the case. On initial CT of the head patient showed a left frontal white matter acute early subacute infarct which was less visible on CT angiogram with no occlusion or significant stenosis. Patient underwent an MRI brain 05/11/16 which showed chronic left frontal infarct and no acute intracranial finding. Infectious disease consultation requested by PMD for positive urine cultures from 05/10/16 for pseudomonas aeruginosa. Patient also noted to be cytopenic with WBC count of 3.2 and hemoglobin of 8.0/ hematocrit 25.3. History obtained mainly from the chart and staff. PMH: HTN, anemia, GERD, dementia, osteoarthritis PSH: unknown FamHx: unknown SocHx: denies tobacco, EtOH use Meds: terazosin 2 mg daily, flomax .4 mg daily, protonix 40 mg daily, atenolol 25 mg daily as per prior admission Allergies- NKDA Review of Systems - Review of Systems Systems not reviewed;Unavailable: Dementia (.), Altered Mental Status - Genitourinary Genitourinary: As Per HPI, Urinary Incontinence (POSITIVE Raza IN PLACE, DOCUMENTED URINE.) - Integumentary Integumentary: Dry Skin, Skin Ulcer (RIGHT HIP AND SACRAL ULCERS STAGE ii.) - Neurological Neurological: Confusion, Frequent Falls, Memory Loss Additional comments: LAST FALL ABOUT 1 WEEK PRIOR TO THIS ADMISSION. - Hematologic/Lymphatic Hematologic: As Per HPI. absent: Lymphadenopathy Past Patient History - Infectious Disease Hx of Infectious Diseases: None - Past Medical History & Family History Past Medical History?: Yes - Past Social History Smoking Status: Never Smoked - CARDIAC Hx Hypertension: Yes - PULMONARY Hx Tuberculosis: No - NEUROLOGICAL Hx Seizures: No - HEENT Hx Blind: Yes (left eye) Other/Comment: HARD OF HEARING, right eye blurry vision - RENAL Hx Chronic Kidney Disease: No - ENDOCRINE/METABOLIC Hx Endocrine Disorders: No - HEMATOLOGICAL/ONCOLOGICAL Hx Anemia: Yes - INTEGUMENTARY Hx Dermatological Problems: No - MUSCULOSKELETAL/RHEUMATOLOGICAL Hx Arthritis: Yes (B/L KNEE R>L) - GASTROINTESTINAL Hx Gastroesophageal Reflux: Yes - GENITOURINARY/GYNECOLOGICAL Hx Sexually Transmitted Disorders: No - PSYCHIATRIC Hx Substance Use: No - SURGICAL HISTORY Hx Surgeries: Yes Other/Comment: hx of L nephrectomy - ANESTHESIA Hx Anesthesia: Yes Hx Anesthesia Reactions: No Hx Malignant Hyperthermia: No Meds Allergies/Adverse Reactions: Allergies Allergy/AdvReac Type Severity Reaction Status Date / Time No Known Allergies Allergy Verified 05/10/16 15:34 - Medications Medications: Current Medications Aspirin (Ecotrin) 81 mg PO DAILY [facility] Last Admin: 05/14/16 11:15 Dose: 81 mg Famotidine (Pepcid) 20 mg IVP Q12 [facility] Last Admin: 05/14/16 21:51 Dose: 20 mg Dextrose/Sodium Chloride (Dextrose 5%/0.9% Ns 1000 Ml) 1,000 mls @ 50 mls/hr IV .Q20H [facility] Last Admin: 05/14/16 14:39 Dose: 50 mls/hr Meropenem 500 mg/ Sodium (Chloride) 100 mls @ 100 mls/hr IVPB Q12H [facility] Last Admin: 05/14/16 21:33 Dose: 100 mls/hr Lisinopril (Zestril) 2.5 mg PO DAILY [facility] Last Admin: 05/14/16 11:15 Dose: 2.5 mg Rosuvastatin Calcium (Crestor) 5 mg PO HS [facility] Last Admin: 05/14/16 21:51 Dose: 5 mg Physical Exam - Constitutional Appears: No Acute Distress, Confused, Cachectic, Chronically Ill - Head Exam Head Exam: NORMOCEPHALIC - Eye Exam Eye Exam: PERRL - ENT Exam ENT Exam: Mucous Membranes Dry - Neck Exam Neck exam: Positive for: Normal Inspection - Respiratory Exam Respiratory Exam: Decreased Breath Sounds - Cardiovascular Exam Cardiovascular Exam: REGULAR RHYTHM, +S1, +S2 (.) - GI/Abdominal Exam GI & Abdominal Exam: Normal Bowel Sounds, Soft. absent: Guarding, Organomegaly - Rectal Exam Rectal Exam: Deferred - Extremities Exam Extremities exam: Positive for: pedal pulses present (.). Negative for: calf tenderness, pedal edema - Neurological Exam Neurological exam: Altered Additional comments: NEUROLOGICAL EXAM DIFFICULT TO PERFORM WITH CONFUSION AND ALTERED MENTAL STATUS. - Psychiatric Exam Psychiatric exam: Flat Affect - Skin Skin Exam: Normal Color Results - Vital Signs Recent Vital Signs: Last Vital Signs Temp 97.9 F 05/14/16 15:19 Pulse 72 05/14/16 16:01 Resp 20 05/14/16 15:19 BP 143/74 05/14/16 15:19 Pulse Ox 96 05/14/16 15:19 - Labs Result Diagrams: 05/15/16 12:38 05/15/16 12:38 Labs: Laboratory Results - last 24 hr 05/14/16 19:47 WBC 3.2 L RBC 3.47 L Hgb 8.0 L Hct 25.3 L MCV 72.8 L MCH 23.0 L MCHC 31.6 L RDW 18.3 H Plt Count 235 MPV 7.5 Neut % (Auto) 65.5 Lymph % (Auto) 16.1 L [place] % (Auto) 16.8 H Eos % (Auto) 0.3 Baso % (Auto) 1.3 Neut # 2.1 Lymph # 0.5 L [place] # 0.5 Eos # 0.0 Baso # 0.0 Sodium 141 Potassium 3.6 Chloride 108 H Carbon Dioxide 26 Anion Gap 11 BUN 5 L Creatinine 0.9 Est GFR ( Amer) > 60 Est GFR (Non-Af Amer) > 60 Random Glucose 105 Calcium 7.7 L Total Bilirubin 0.8 Direct Bilirubin 0.3 AST 25 ALT 35 Alkaline Phosphatase 34 L Total Protein 5.6 L Albumin 2.4 L Globulin 3.2 Albumin/Globulin Ratio 0.7 L - Imaging and Cardiology MRI - head Status: Report reviewed by me (chronic left frontal infarct, no acute intracranial finding.) Assessment & Plan (1) Altered mental status Status: Acute (2) UTI (urinary tract infection) Assessment and Plan: patient has a urine culture positive for pseudomonas aeruginosa s to Merrem-, independent JOSIE 2, gentamicin JOSIE 2. patient to be started on Merrem 500 mg every 12 hourly for now. 05/14/16 follow-up UA and urine cultures in a.m. Status: Acute (3) Anemia Status: Acute (4) Hip pain, right Status: Acute (5) Stroke (cerebrum) Status: Acute (6) Decubitus skin ulcer Assessment and Plan: patient has a sacral ulcer stage II, and a right hip skin excoriation. Local wound care as per attending has been ordered. Please reposition patient every 4 hourly with wedge/and air mattress. Status: Acute - Assessment and Plan (Free Text) Plan: pancultures. Start patient on Merrem 500 mg every 12 hourly.05/14/16 Will repeat UA urine culture in a.m. follow-up H&H in a.m. Stools for occult blood 1 To discuss with staff and PMD.
[2016-05-15] MEDS: Meropenem 500 MG in Sodium Chloride 0.9% 100 ML IVPB SCH ×2 (09:00→19:54)
--- NOTE | 2016-05-15 09:33 | PN ---
DATE: 05/15/2016 NEUROLOGICAL PROBLEM: Transient ischemic attack, responded with tPA. The patient also suffering fro m senile dementia versus vascular dementia. PHYSICAL EXAMINATION: VITAL SIGNS: Blood pressure 143/74, mean arterial pressure of 97, respiratory rate 18, temperature 9 8.4, pulse rate 84. NEUROLOGIC: The patient is arousable calling his name. He is awake. Speech is unchanged. He could able to communicate. Follows 1-2 step commands. The rest of the exam is unchanged. Neuro workup is completed. The patient is recommended to be placed back in his long-term if medic ally stable. I am signing off from followup on him. If any changes, please do not hesitate to call me back. Ernesto Wen MD cc: [id number] TT: 05/15/2016 09:32:13 Confirmation # [id number] Dictation # [id number]
[2016-05-15] MEDS: Dextrose 5%/0.9% NS 1,000 ML IV SCH (10:42)
[2016-05-15 12:54] LABS: BASO # 0.1 K/uL (0.0-0.2); BASO % 1.5 % (0.0-2.0); EOS % 1.3 % (0.0-4.0); HEMATOCRIT 24.7 % (35.0-51.0); LYMPH # 1.3 K/uL (1.0-4.3); LYMPH % 34.1 % (20.0-40.0); MEAN CELL VOLUME 72.4 fL (80.0-94.0); MEAN CORPUSCULAR HEMOGLOBIN 23.3 pg (27.0-31.0); MEAN CORPUSCULAR HGB CONC 32.1 g/dL (33.0-37.0); MEAN PLATELET VOLUME 7.5 fL (7.2-11.7); MONO # 0.6 K/uL (0.0-0.8); MONO % 14.7 % (0.0-10.0); RED CELL DISTRIBUTION WIDTH 18.1 % (11.5-14.5); WHITE BLOOD COUNT 3.8 K/uL (4.8-10.8)
[2016-05-15 12:56] LABS: CHLORIDE 106 mmol/L (98-107); POTASSIUM 3.5 mmol/L (3.6-5.2); SODIUM 143 mmol/L (132-148)
[2016-05-15 12:58] LABS: ALB/GLOB RATIO 0.8 (1.0-2.1); AST/SGOT 26 U/L (17-59); BILIRUBIN,TOTAL 0.8 mg/dL (0.2-1.3); CARBON DIOXIDE 26 mmol/L (22-30); GFR AFRICAN-AMERICAN > 60; TOTAL PROTEIN 5.4 g/dL (6.3-8.3)
[2016-05-15 12:59] LABS: ALKALINE PHOSPHATASE 37 U/L (38-126); ALT/SGPT 24 U/L (21-72); BLOOD UREA NITROGEN 6 mg/dL (9-20); CALCIUM 7.8 mg/dl (8.6-10.4); GLUCOSE,RANDOM 59 mg/dL (75-110)
[2016-05-15 14:57] LABS: RBC URINE 12 /hpf (0-3); URINE BACTERIA RARE (<OCC); URINE BILIRUBIN NEGATIVE (NEGATIVE); URINE BLOOD 3+ (NEGATIVE); URINE COLOR Yellow (YELLOW); URINE GLUCOSE (UA) NORMAL (Normal); URINE KETONE NEGATIVE (NEGATIVE); URINE LEUKOCYTE ESTERASE 1+ Leu/uL (Negative); URINE PROTEIN NEGATIVE (NEGATIVE); URINE UROBILINOGEN NORMAL mg/dL (0.2-1.0); WBC URINE 20 /hpf (0-5)
[2016-05-15] MEDS ORDERED: Potassium Chloride 20 mEq 100 ML IVPB ONE (17:21)
--- NOTE | 2016-05-15 20:50 | PN ---
DATE: 05/15/2016 The patient is comfortable; however, appears confused. PHYSICAL EXAMINATION: VITAL SIGNS: Blood pressure 129/69, heart rate 66, temperature 99.5, respirations 20. HEENT: Pale conjunctivae. CHEST: Clear. HEART: S1, S2 regular. EXTREMITIES: No edema. LABORATORIES: Hemoglobin and hematocrit 7.9 and 24.7, white count 3.8, platelet count 249,000. Toda y's potassium is 3.5 and calcium 7.8. Blood culture is negative after 5 days. The patient was evalu ated by Dr. Cassia Arriaga, who initiated meropenem at 500 mg intravenously q.12 hours. ASSESSMENT: 1. Status post cerebrovascular accident and tissue plasminogen activator administration. 2. Gram-negative urinary tract infection. PLAN: Continue IV meropenem at 500 mg q.12 hours, Crestor 5 mg once a day, Zestril 2.5 mg once a day . I had a lengthy discussion with the patient's son. The patient does eat the food when it is provi ded to him by any personnel, and for that reason, a gastrostomy tube feeding will not be justified. The patient will be transferred to subacute rehab to continue intravenous antibiotic at [facility] . Jerald Kenny MD cc: [id number] TT: 05/15/2016 20:17:16 Confirmation # [id number] Dictation # [id number] 05/15/2016 19:49:19
--- NOTE | 2016-05-15 21:02 | CP.PCM.PN ---
Subjective - Date & Time of Evaluation Date of Evaluation: 05/15/16 Time of Evaluation: 21:02 - Subjective Subjective: CHIEF COMPLAINTS TODAY : AFEBRILE, AROUSABLE BUT CONFUSED ROS.only on observation HEENT : N. Resp : No SOB wheezing, cough Cardio : No CP, PND orthopnea GI : No abd. Pain, n/v WATER PLUMBER : confused, arousable, knows his name but not aware off surroundings Musculoskel : N Ext. : Pedal pulses intact, no edema or calf pain Derm : N Psych : N. PE. Pt. is awake ,CONFUSED, in no distress. V.S As noted in the chart Head ,ear nose,throat and eyes : Normal. Neck : Supple with normal carotids. Lungs: DIMINISHED BREATH SOUNDS AT THE BASES Heart : S1 & S2 normal . . No murmur. S4 + Abd : Soft non tender with normal bowel sounds. Neuro :DIFFICULT TO EVALUATE. Ext : No edema with intact pulses. Neg. calf tenderness Derm : No rashes , +VE SACRAL decubitus ulcer STAGE ii. RIGHT HIP EXCORIATIONS S/P FALL Radiology/Labs . REVIEWED Objective - Vital Signs/Intake and Output Vital Signs (last 24 hours): Temp Pulse Resp BP Pulse Ox 97.5 F L 56 L 20 129/59 L 100 05/15/16 16:00 05/15/16 16:00 05/15/16 16:00 05/15/16 16:00 05/15/16 16:00 - Medications Medications: Current Medications Aspirin (Ecotrin) 81 mg PO DAILY [facility] Last Admin: 05/15/16 09:31 Dose: 81 mg Famotidine (Pepcid) 20 mg IVP Q12 [facility] Last Admin: 05/15/16 09:30 Dose: 20 mg Meropenem 500 mg/ Sodium (Chloride) 100 mls @ 100 mls/hr IVPB Q12H [facility] Last Admin: 05/15/16 19:54 Dose: 100 mls/hr Dextrose/Sodium Chloride (Dextrose 5%-0.9% Ns 500 Ml) 1,000 mls @ 50 mls/hr IV .Q20H ONE Stop: 05/16/16 10:26 Gentamicin Sulfate 80 mg/ (Sodium Chloride) 102 mls @ 100 mls/hr IVPB Q24H [facility] Lisinopril (Zestril) 2.5 mg PO DAILY [facility] Last Admin: 05/15/16 09:31 Dose: 2.5 mg Rosuvastatin Calcium (Crestor) 5 mg PO HS [facility] Last Admin: 05/14/16 21:51 Dose: 5 mg - Labs Labs: 05/15/16 12:38 05/15/16 12:38 PT 11.4 SECONDS (9.7-12.2) 05/10/16 15:31 INR 1.0 05/10/16 15:31 APTT 44 SECONDS (21-34) H 05/10/16 15:31 Assessment and Plan (1) Altered mental status Status: Acute (2) UTI (urinary tract infection) Assessment & Plan: REPEAT UA, URINE CULTURE TODAY continue IV Merrem 500 every 12 hourly x 5days ADD iv GENTAMICIN 80 MG ONCE A DAY DAILY X3 DAYS WILL FOLLOW U/A, URINE CULTURE. Status: Acute (3) Anemia Assessment & Plan: WBC3.8 H/H 7.9/24.7 PLT OK WATCH H/H STOOLS FOR OB X 1. CASE DISCUSSED WITH STAFF, Status: Acute (4) Hip pain, right Status: Acute (5) Stroke (cerebrum) Status: Acute (6) Decubitus skin ulcer Status: Acute
[2016-05-16 06:21] LABS: BASO % 0.7 % (0.0-2.0); EOS % 1.2 % (0.0-4.0); HEMATOCRIT 25.1 % (35.0-51.0); LYMPH # 0.9 K/uL (1.0-4.3); LYMPH % 23.8 % (20.0-40.0); MEAN CELL VOLUME 71.8 fL (80.0-94.0); MEAN CORPUSCULAR HEMOGLOBIN 23.2 pg (27.0-31.0); MEAN CORPUSCULAR HGB CONC 32.2 g/dL (33.0-37.0); MEAN PLATELET VOLUME 7.4 fL (7.2-11.7); MONO # 0.6 K/uL (0.0-0.8); MONO % 16.3 % (0.0-10.0); NRBC % 0.4 % (0.0-2.0); RED CELL DISTRIBUTION WIDTH 18.3 % (11.5-14.5); WHITE BLOOD COUNT 3.6 K/uL (4.8-10.8)
[2016-05-16 06:31] LABS: CHLORIDE 106 mmol/L (98-107); POTASSIUM 3.5 mmol/L (3.6-5.2); SODIUM 142 mmol/L (132-148)
[2016-05-16 06:33] LABS: CARBON DIOXIDE 27 mmol/L (22-30); GFR AFRICAN-AMERICAN > 60
[2016-05-16 06:34] LABS: ALB/GLOB RATIO 0.9 (1.0-2.1); ALKALINE PHOSPHATASE 39 U/L (38-126); ALT/SGPT 29 U/L (21-72); AST/SGOT 26 U/L (17-59); BILIRUBIN,DIRECT 0.3 mg/dL (0.0-0.4); BLOOD UREA NITROGEN 7 mg/dL (9-20); CALCIUM 7.7 mg/dl (8.6-10.4); GLUCOSE,RANDOM 77 mg/dL (75-110); TOTAL PROTEIN 5.6 g/dL (6.3-8.3)
[2016-05-16 07:46] VITALS: BP 160/87; PULSE 69; RESP 18; TEMP 97.4; O2SAT 96
[2016-05-16] MEDS: Meropenem 500 MG in Sodium Chloride 0.9% 100 ML IVPB SCH (08:34)
[2016-05-16] MEDS: Dextrose 5%/0.9% NS 1,000 ML IV SCH (08:39)
--- NOTE | 2016-05-16 10:02 | CP.PCM.PN ---
Subjective - Date & Time of Evaluation Date of Evaluation: 05/16/16 Time of Evaluation: 09:56 - Subjective Subjective: PT SEEN AND EXAMINED TODAY, PT WAS ADMITTED FOR S/P CVA AND tPA ADMINISTRATION, STEP DOWN FROM ICU, ALSO SUFFERING FROM SENILE DEMENTIA VS VASCULAR DEMENTIA, UTI, PT CLEARED FOR D/C TO [facility] TODAY PER DR CANALES TODAY ( COVERING FOR DR NGO), PT CLEARED FOR D/C BY DR MARCELINO AND DR LONG, MEROPENEM 500 MG IV Q12 HR (UNTIL 05/20) AND GENTAMICIN 80 MG IV DAILY (UNTIL 05/17) ALSO NEW MEDS ZESTRIL 2.5 MG ONCE A DAY, CRESTOR 5 MG ONCE A DAY PER DR CANALES , FALL PRECAUTIONS, WOUND CARE, REPEAT UA AND C/S DONE, IMPROVING, WILL MONITOR CBC AND CMP, NO ACUTE BLEEDING, RESP EASY AND UNLABORED, NAD. . Objective - Vital Signs/Intake and Output Vital Signs (last 24 hours): Temp Pulse Resp BP Pulse Ox 97.4 F L 69 18 160/87 H 96 05/16/16 07:45 05/16/16 07:45 05/16/16 07:45 05/16/16 07:45 05/16/16 07:45 Intake and Output: 05/16/16 05/16/16 06:59 18:59 Intake Total 450 Balance 450 - Medications Medications: Current Medications Aspirin (Ecotrin) 81 mg PO DAILY [facility] Last Admin: 05/15/16 09:31 Dose: 81 mg Famotidine (Pepcid) 20 mg IVP Q12 [facility] Last Admin: 05/15/16 22:47 Dose: 20 mg Meropenem 500 mg/ Sodium (Chloride) 100 mls @ 100 mls/hr IVPB Q12H [facility] Last Admin: 05/16/16 08:34 Dose: 100 mls/hr Dextrose/Sodium Chloride (Dextrose 5%-0.9% Ns 500 Ml) 1,000 mls @ 50 mls/hr IV .Q20H ONE Stop: 05/16/16 10:26 Gentamicin Sulfate 80 mg/ (Sodium Chloride) 102 mls @ 100 mls/hr IVPB Q24H [facility] Last Admin: 05/15/16 22:46 Dose: 100 mls/hr Lisinopril (Zestril) 2.5 mg PO DAILY [facility] Last Admin: 05/15/16 09:31 Dose: 2.5 mg Rosuvastatin Calcium (Crestor) 5 mg PO HS [facility] Last Admin: 05/15/16 22:47 Dose: 5 mg - Labs Labs: 05/16/16 06:08 05/16/16 06:08 PT 11.4 SECONDS (9.7-12.2) 05/10/16 15:31 INR 1.0 05/10/16 15:31 APTT 44 SECONDS (21-34) H 05/10/16 15:31
== END 2016-05-16 13:21 | DRG 61 ==
LOC: C.ER 14:58 → C.9E 16:13 → C.9I 16:51 → C.6T 05-13 21:19
PROVIDERS: ADMIT Internal Medicine; ATTEND Internal Medicine
DX: I63.9 Cerebral infarction, unspecified (principal); E43 Unspecified severe protein-calorie malnutrition; N39.0 Urinary tract infection, site not specified; F03.91 Unspecified dementia, unspecified severity, with behavioral disturbance; Z68.1 Body mass index [BMI] 19.9 or less, adult; I67.82 Cerebral ischemia; B96.5 Pseudomonas (aeruginosa) (mallei) (pseudomallei) as the cause of diseases classified elsewhere; D64.9 Anemia, unspecified; I10 Essential (primary) hypertension; K21.9 Gastro-esophageal reflux disease without esophagitis; K44.9 Diaphragmatic hernia without obstruction or gangrene; R47.1 Dysarthria and anarthria; H54.42 Blindness, left eye, normal vision right eye; R29.707 NIHSS score 7; Z79.82 Long term (current) use of aspirin; N40.0 Benign prostatic hyperplasia without lower urinary tract symptoms; I69.328 Other speech and language deficits following cerebral infarction

== ENCOUNTER 2016-06-19 19:43 | Inpatient (IN) | payer MEDICARE, OTHER ==
[2016-06-19 19:43] VITALS: BMI 16.7
--- NOTE | 2016-06-19 20:08 | C.PDOC ---
History Of Present Illness Patient, with a past medical history of GERD, arthritis, anemia, and hypertension, is brought to the ED by [facility] for possible change in mental status as per his son. The son reports the patient has a decreased intake of food and fluids recently. Review of systems cannot be obtained due to patient's inability to answer questions. Time Seen by Provider: 06/19/16 20:07 Chief Complaint (Nursing): Altered Mental Status History Per: Family History/Exam Limitations: clinical condition Onset/Duration Of Symptoms: Days (few days) Current Symptoms Are (Timing): Still Present Severity: Mild Pain Scale Rating Of: 3 Recent travel outside of the [place]: No Additional History Per: EMS, Care Home Past Medical History Reviewed: Historical Data, Nursing Documentation, Vital Signs Vital Signs: Last Vital Signs Temp 90.7 F L 06/19/16 22:32 Pulse 107 H 06/19/16 22:32 Resp 20 06/19/16 22:32 BP 81/30 L 06/19/16 22:32 Pulse Ox 100 06/19/16 22:32 - Medical History PMH: Anemia, Arthritis (B/L KNEE R>L), GERD, HTN - [facility] Procedures CLOSED ENDOSCOPIC BIOPSY OF LARGE INTESTINE (09/12/13) ESOPHAGOGASTRODUODENOSCOPY [EGD] W/CLOSED BIOPSY (09/12/13) INTRODUCE OTH THROMBOLYTIC IN PERIPH VEIN, PERC (05/10/16) PACKED CELL TRANSFUSION (09/12/13) TRANSFUSE NONAUT RED BLOOD CELLS IN PERIPH VEIN, PERC (04/28/16) Family History: States: No Known Family Hx - Social History Hx Tobacco Use: No Hx Alcohol Use: No Hx Substance Use: No - Immunization History Hx Tetanus Toxoid Vaccination: No Hx Influenza Vaccination: Yes Hx Pneumococcal Vaccination: No Review Of Systems Review Of Systems: ROS cannot be obtained secondary to pt's inabilty to answer questions. Physical Exam - Physical Exam Appears: Non-toxic, Other (cachectic) Skin: Warm, Dry, Other (poor turgor) Head: Atraumatic, Normacephalic Eye(s): bilateral: Normal Inspection, EOMI Oral Mucosa: Dry Lips: Other (dry) Neck: Supple Chest: Symmetrical Cardiovascular: Rhythm Regular Respiratory: No Rales, No Rhonchi, No Wheezing Gastrointestinal/Abdominal: Soft, No Tenderness Back: No CVA Tenderness Extremity: Bilateral: Atraumatic (moving all extremities) Neurological/Psych: Other (awake, alert, oriented x 1; slurred speech (not new)) ED Course And Treatment - Laboratory Results Result Diagrams: 06/19/16 20:33 06/19/16 20:33 ECG: Interpreted By Me, Viewed By Me ECG Rhythm: Sinus Rhythm (54), Nonspecific Changes O2 Sat by Pulse Oximetry: 100 Pulse Ox Interpretation: Normal (100) - Radiology CXR Interpretation: Yes: COPD, Other (unchanged 05/10/16). No: Infiltrates, Fracture, Pnemothorax Progress Note: blood work, heating blanket, ivf. spoke with dr mark - icu- will come and see the pt in the ed. will take the pt to icu due to his low bp, although pt i dnr/dni Critical Care Time - Critical Care Note Total Time (in mins): 30 Documented critical care: time excludes all time spent performing seperately billable procedures. Disposition Discussed With DrWendy: Nigel Kelley Comment: accepted the pt on his service and took over the care at 10:45 PM Doctor Will See Patient In The: Hospital Counseled Patient/Family Regarding: Studies Performed, Diagnosis - Disposition Disposition: HOSPITALIZED Disposition Time: 20:07 Condition: FAIR - Clinical Impression Clinical Impression: Altered mental status, Hypotension, Dehydration, Hypernatremia - Scribe Statement The provider has reviewed the documentation as recorded by the Scribe Jessica Bates Provider Attestation: All medical record entries made by the Scribe were at my direction and personally dictated by me. I have reviewed the chart and agree that the record accurately reflects my personal performance of the history, physical exam, medical decision making, and the department course for this patient. I have also personally directed, reviewed, and agree with the discharge instructions and disposition. Decision To Admit - Pt Status Changed To: Hospital Disposition Of: Inpatient - Admit Certification Admit to Inpatient:: After my assessment, the patient will require hospitalization for at least two midnights. This is because of the severity of symptoms shown, intensity of services needed, and/or the medical risk in this patient being treated as an outpatient. - InPatient: Physician Admission Certification: I certify that this patient requires 2 or more midnights of care for the following reason:: After my assessment, the patient will require hospitalization for at least two midnights. This is because of the severity of symptoms shown, intensity of services needed, and/or the medical risk in this patient being treated as an outpatient. - . Bed Request Type: Telemetry Admitting Physician: Nigel Kelley Patient Diagnosis: Altered mental status, Hypotension, Dehydration, Hypernatremia
[2016-06-19 20:41] LABS: VENOUS BLOOD GAS BASE EXCESS 0.4 mmol/L (0.0-2.0); VENOUS BLOOD GAS PCO2 57 mmHg (40-60)
[2016-06-19] MEDS ORDERED: Sodium Chloride 0.9% 1,000 ML IV ONE (20:43)
[2016-06-19 20:48] LABS: BASO # 0.1 K/uL (0.0-0.2); BASO % 1.6 % (0.0-2.0); EOS % 0.1 % (0.0-4.0); HEMATOCRIT 28.1 % (35.0-51.0); LYMPH # 0.4 K/uL (1.0-4.3); LYMPH % 6.7 % (20.0-40.0); MEAN CELL VOLUME 73.5 fL (80.0-94.0); MEAN CORPUSCULAR HEMOGLOBIN 22.6 pg (27.0-31.0); MEAN CORPUSCULAR HGB CONC 30.8 g/dL (33.0-37.0); MEAN PLATELET VOLUME 7.9 fL (7.2-11.7); MONO # 0.8 K/uL (0.0-0.8); NRBC % 0.5 % (0.0-2.0); PLATELET COUNT 246 K/uL (130-400); POTASSIUM 4.2 mmol/L (3.6-5.2); RED CELL DISTRIBUTION WIDTH 18.2 % (11.5-14.5)
[2016-06-19 20:49] LABS: WHITE BLOOD COUNT 5.9 K/uL (4.8-10.8)
[2016-06-19 20:50] LABS: ALB/GLOB RATIO 0.8 (1.0-2.1); BILIRUBIN,TOTAL 0.4 mg/dL (0.2-1.3); TOTAL PROTEIN 7.4 g/dL (6.3-8.3)
[2016-06-19 20:51] LABS: CALCIUM 8.8 mg/dl (8.6-10.4)
[2016-06-19] MEDS ORDERED: Sodium Chloride 0.9% 1,000 ML ONE (20:54)
[2016-06-19 20:58] LABS: INR 1.1; RBC URINE 2 /hpf (0-3); URINE BACTERIA RARE (<OCC); URINE BILIRUBIN NEGATIVE (NEGATIVE); URINE COLOR Yellow (YELLOW); URINE GLUCOSE (UA) NORMAL (Normal); URINE KETONE NEGATIVE (NEGATIVE); URINE PROTEIN NEGATIVE (NEGATIVE); URINE UROBILINOGEN NORMAL mg/dL (0.2-1.0); WBC URINE 1 /hpf (0-5)
[2016-06-19 21:08] LABS: URINE BLOOD NEGATIVE (NEGATIVE); URINE LEUKOCYTE ESTERASE NEGATIVE Leu/uL (Negative)
[2016-06-19] MEDS ORDERED: Sodium Chloride 0.9% 500 ML IV ONE ×2 (23:19→23:21)
[2016-06-19] MEDS ORDERED: Sodium Chloride 0.9% 500 ML IV SCH (23:30)
[2016-06-19 23:39] LABS: NEUTROPHIL 76 % (50-75); SMUDGE CELLS PRESENT; TOTAL CELLS COUNTED 100
[2016-06-19 23:40] LABS: LARGE PLATELETS PRESENT
[2016-06-20] MEDS ORDERED: Piperacillin/Tazobact 3.375 GM in Sodium Chloride 100 ML IVPB STA (00:16)
[2016-06-20] MEDS ORDERED: Lactated Ringer's 1,000 ML IV ONE (01:10)
[2016-06-20] MEDS ORDERED: Lactated Ringer's 1,000 ML IV SCH (01:15)
[2016-06-20] MEDS ORDERED: Lactated Ringer's 1,000 ML ONE (01:26)
--- NOTE | 2016-06-20 01:38 | CP.PCM.CON ---
History of Present Illness - History of Present Illness History of Present Illness: Patient seen and examined in ER as per request of Dr. Parker. This is an 89 year old male with multiple admissions to this hospital, last on April this year for acute stroke. As per records patient is demented and a [facility]. As per son, he was brought since he looked altered and down and he did not think he was doing well. As per son he has been forgetful since november last year and is getting worst, but he does not visit him that frequently. He is hypotermic, hypoxic, looks dry and has ARF. Unable to get appropriate exam since he moves a lot and does not follow commands. Bryan Whittington is his only son and signed a POLST last admission. He wants his father to remain DNR/DNI and do the best for him, but does not want him to suffer. He agrees to one pressor only and no more than one if needed. Last admission Bryan Whittington refused a PEG and continues to refuse it. He agrees with no central line or invasive procedures. ros unable NKDA PMH: HTN Dementia Legally blind at least since 2014 Emaciated Hx stroke FH not relevant for the case pe: elderly male who looks agitated and emaciated bp 81/30 mmhg, hr 75 bpm, T 89.7, rr 20 bpm, O2 100% on RA s1, s2 rrr lungs bilateral air of entry, decrease breath sounds, no conducted sounds abdomen flat, soft, unable assess pain skin no openings a/p: sepsis: give broad spectrum antibiotics adjusted for renal function, fluids, phenylephrine ARF: secondary to prerenal failure: iv fluids, gently dehydration Malnourished Past Patient History - Infectious Disease Hx of Infectious Diseases: None - Past Medical History & Family History Past Medical History?: Yes - Past Social History Smoking Status: Never Smoked - CARDIAC Hx Hypertension: Yes - PULMONARY Hx Tuberculosis: No - NEUROLOGICAL Hx Seizures: No - HEENT Hx Blind: Yes (left eye) Other/Comment: HARD OF HEARING, right eye blurry vision - RENAL Hx Chronic Kidney Disease: No - ENDOCRINE/METABOLIC Hx Endocrine Disorders: No - HEMATOLOGICAL/ONCOLOGICAL Hx Anemia: Yes - INTEGUMENTARY Hx Dermatological Problems: No - MUSCULOSKELETAL/RHEUMATOLOGICAL Hx Arthritis: Yes (B/L KNEE R>L) - GASTROINTESTINAL Hx Gastroesophageal Reflux: Yes - GENITOURINARY/GYNECOLOGICAL Hx Sexually Transmitted Disorders: No - PSYCHIATRIC Hx Substance Use: No - SURGICAL HISTORY Hx Surgeries: Yes Other/Comment: hx of L nephrectomy - ANESTHESIA Hx Anesthesia: Yes Hx Anesthesia Reactions: No Hx Malignant Hyperthermia: No Meds Allergies/Adverse Reactions: Allergies Allergy/AdvReac Type Severity Reaction Status Date / Time No Known Allergies Allergy Verified 05/10/16 15:34 - Medications Medications: Current Medications Heparin Sodium (Porcine) (Heparin) 5,000 units SC Q8 [place] Sodium Chloride (Sodium Chloride 0.9%) 1,000 mls @ 200 mls/hr IV .Q5H ONE Stop: 06/20/16 01:42 Last Admin: 06/19/16 22:04 Dose: 200 mls/hr Lactated Ringer's (Lactated Ringer's) 1,000 mls @ 100 mls/hr IV .Q10H [place] Lactated Ringer's (Lactated Ringer's) 1,000 mls @ 1,000 mls/hr IV .Q1H ONE Stop: 06/20/16 02:09 Vancomycin HCl (Vancocin 750mg/D5w 150 Ml) 150 mls @ 150 mls/hr IVPB Q24H [place] Stop: 06/25/16 01:16 Piperacillin Sod/Tazobactam Sod (Zosyn 2.25 Gm Iv Premix) 50 mls @ 100 mls/hr IVPB Q6H [place] Phenylephrine HCl 30 mg/ (Sodium Chloride) 253 mls @ 20.23 mls/hr IV .[id number] PRN; Protocol; 40 MCG/MIN PRN Reason: TITRATE PER MD ORDER Pantoprazole Sodium (Protonix Inj) 40 mg IVP DAILY [facility] Results - Vital Signs Recent Vital Signs: Last Vital Signs Temp 95.7 F L 06/20/16 01:22 Pulse 65 06/20/16 01:22 Resp 16 06/20/16 01:22 BP 74/36 L 06/20/16 01:22 Pulse Ox 100 06/20/16 01:22 - Labs Result Diagrams: 06/20/16 06:30 06/20/16 09:31
[2016-06-20] MEDS: Piperacill/Tazo 2.25gm in Dex 50 ML IVPB SCH ×4 (02:51→19:05)
[2016-06-20] MEDS: Phenylephrine 30 MG in Sodium Chloride 0.9% 250 ML IV PRN ×6 (02:52→22:53)
[2016-06-20] MEDS: Vancomycin 750mg/D5W 150 ml 150 ML IVPB SCH (03:26)
[2016-06-20 07:22] LABS: HEMATOCRIT 28.4 % (35.0-51.0); RED CELL DISTRIBUTION WIDTH 18.8 % (11.5-14.5); WHITE BLOOD COUNT 6.4 K/uL (4.8-10.8)
[2016-06-20 07:23] LABS: MEAN CELL VOLUME 76.6 fL (80.0-94.0)
--- NOTE | 2016-06-20 09:40 | RAD ---
PROCEDURE: CHEST RADIOGRAPH, 1 VIEW HISTORY: Shortness of breath COMPARISON: 05/10/2016 FINDINGS: LUNGS: Hyperinflation suggestive for COPD and or emphysematous changes. Limited evaluation of the right lower catracho thorax as there is an overlying hand. Patchy increased markings in the medial left lower lung zone which may represent focal consolidation versus atelectasis versus infiltrate. Clinical correlation. Left costophrenic angle not well visualized on this study. More linear consolidative changes in the left midlung zone. PLEURA: As above. CARDIOVASCULAR: Normal. OSSEOUS STRUCTURES: Deformity of the right proximal humerus. VISUALIZED UPPER ABDOMEN: Normal. OTHER FINDINGS: None. IMPRESSION: Hyperinflation suggestive for COPD and or emphysematous changes. Limited evaluation of the right lower catracho thorax as there is an overlying hand. Patchy increased markings in the medial left lower lung zone which may represent focal consolidation versus atelectasis versus infiltrate. Clinical correlation. Left costophrenic angle not well visualized on this study. More linear consolidative changes in the left midlung zone.
[2016-06-20 09:45] LABS: POTASSIUM 4.5 mmol/L (3.6-5.2)
[2016-06-20 09:49] LABS: MAGNESIUM 3.4 mg/dL (1.6-2.3); PHOSPHOROUS 3.9 mg/dL (2.5-4.5)
[2016-06-20] MEDS: Sodium Chloride 0.9% 1,000 ML IV SCH ×3 (10:58→23:02)
[2016-06-20 11:34] LABS: LYMPH # 0.6 K/uL (1.0-4.3); MONO # 0.1 K/uL (0.0-0.8)
[2016-06-21] MEDS: Vancomycin 750mg/D5W 150 ml 150 ML IVPB SCH (01:35)
[2016-06-21] MEDS: Piperacill/Tazo 2.25gm in Dex 50 ML IVPB SCH ×4 (01:36→19:01)
[2016-06-21] MEDS: Phenylephrine 30 MG in Sodium Chloride 0.9% 250 ML IV PRN ×3 (01:38→08:13)
[2016-06-21] MEDS: Sodium Chloride 0.9% 1,000 ML IV SCH ×2 (04:36→17:22)
[2016-06-21 06:55] LABS: POTASSIUM 3.8 mmol/L (3.6-5.2)
[2016-06-21 06:57] LABS: BILIRUBIN,TOTAL 0.6 mg/dL (0.2-1.3)
[2016-06-21 06:58] LABS: ALB/GLOB RATIO 0.7 (1.0-2.1); CALCIUM 7.4 mg/dl (8.6-10.4); PHOSPHOROUS 3.3 mg/dL (2.5-4.5); TOTAL PROTEIN 6.9 g/dL (6.3-8.3)
[2016-06-21 06:59] LABS: MAGNESIUM 2.8 mg/dL (1.6-2.3)
[2016-06-21 07:21] LABS: MEAN CORPUSCULAR HEMOGLOBIN 22.5 pg (27.0-31.0); MEAN CORPUSCULAR HGB CONC 30.5 g/dL (33.0-37.0); MEAN PLATELET VOLUME 7.8 fL (7.2-11.7); PLATELET COUNT 238 K/uL (130-400); RED CELL DISTRIBUTION WIDTH 18.7 % (11.5-14.5); WHITE BLOOD COUNT 8.4 K/uL (4.8-10.8)
[2016-06-21 07:22] LABS: MEAN CELL VOLUME 73.6 fL (80.0-94.0)
[2016-06-21] MEDS ORDERED: Dextrose 50% SYRINGE Inj (50 ml) IV STA (07:58)
[2016-06-21] MEDS ORDERED: Dextrose 50% SYRINGE Inj (50 ml) IV PRN ×2 (08:43→09:27)
--- NOTE | 2016-06-21 09:11 | HP ---
This is an 89-year-old -[place] male who was in subacute rehabilitation at [facility] and noticed to have worsening of mental status with decreased oral intake. The patient was brought to Emergency Room where he was found to be hypotensive, hypothermic with acute kidney injury and dehydration and hypernatremia. The patient was evaluated in the Emergency Room and he had ICU consult where he was admitted to intensive care unit. The patient was not giving any history at the time of this examination and he is not following commands. The patient was already admitted to intensive care unit and started on IV antibiotics as well as IV fluids. REVIEW OF SYSTEMS: Other is not obtainable from patient. ALLERGIES: No known allergy. PAST MEDICAL HISTORY: History of cancer of prostate, hypertension, degenerative spine disease, dementia. SOCIAL HISTORY: No history of smoking, ETOH or substance abuse. FAMILY HISTORY: Not obtainable. HOME MEDICATIONS: Flomax 0.4 mg daily, Crestor 5 mg daily, aspirin 81 mg daily , ferrous sulfate 325 mg daily, lisinopril 2.5 mg daily. PHYSICAL EXAMINATION: GENERAL: The patient is in bed, not in any cardiopulmonary distress at the time of this examination. VITAL SIGNS: Blood pressure 125/35, temperature 96, respiratory rate 18, and pulse 50. HEENT: Slightly pale mucosa of the conjunctivae. NECK: Supple, no JVD, no carotid bruit, no lymph node, no thyromegaly. CHEST AND LUNGS: Bilateral symmetrical expansion, good air exchange, no rales, no rhonchi. CARDIOVASCULAR: PMI not localized. S1, S2. No additional sounds. ABDOMEN: Normoactive bowel sounds, no tenderness, no organomegaly, no masses. EXTREMITIES: No cyanosis, no clubbing, no edema. CENTRAL NERVOUS SYSTEM: The patient is awake, but not following commands and moves all extremities equally. ASSESSMENT: 1. Severe sepsis with hypotension. 2. Acute kidney injury. 3. Dehydration. 4. Hypernatremia. PLAN: We will continue IV fluid and as per corporate sales trainer record and talking to the son, we will continue the DNR/DNI and . Continue IV fluid and continue intensive care at this point. Nigel Kelley MD cc: [id number] TT: 06/21/2016 09:11:24 en MTDD
[2016-06-21] MEDS: DOPamine 400mg/250ml D5W 400 MG/250 ML BAG IV PRN (09:41)
[2016-06-21] MEDS: Dextrose 5%/0.45% NS 1,000 ML IV SCH ×3 (09:43→23:33)
[2016-06-21 10:11] LABS: LYMPH # 0.3 K/uL (1.0-4.3); MONO # 0.5 K/uL (0.0-0.8)
[2016-06-21 10:13] LABS: NEUTROPHIL 90 % (50-75); TOTAL CELLS COUNTED 100
[2016-06-21 10:15] LABS: LARGE PLATELETS PRESENT
--- NOTE | 2016-06-21 11:46 | CP.CCUPN ---
<Moe Major - Last Filed: 06/21/16 18:07> CCU Subjective - Physician Review Subjective (Free Text): 06/21/16 11:41 Pt seen and examined at bedside. Pts son, KIZZY Whittington, was at bedside. Went over pt care goals with Bryan. Palliative Care, Michell, was consulted as well, and Bryan reiterated goals outlined on POLST, and wishes his father "be comfortable." Nursing notes show pt became hypotensive overnight and phenylephrine was titrated up. Pt was also hypothermic last night and Meryl hugger was ordered. ROS could not be obtained due to pts mental status. Critical Care Time Spent (in minutes): 40 CCU Objective - Vital Signs / Intake & Output Vital Signs (Last 4 hours): Vital Signs Pulse BP 06/21/16 09:41 54 L 112/55 L 06/21/16 08:13 72/42 L Intake and Output (Last 8hrs): Intake & Output 06/20/16 06/21/16 06/21/16 22:59 06:59 14:59 Intake Total 2076 2026 1045 Output Total 350 1150 Balance 4914 195 6216 Weight 101 lb 14.4 oz Intake: IV 606 506 316 Intake, IV Amount 1470 1520 729 Left Proximal Port Wrist 720 720 279 Left Wrist 750 800 450 Oral 0 0 Output: Urine 350 1150 Urethral (Redd) 350 1150 Other: # Bowel Movements 1 - Physical Exam Narrative Physical Exam (Free Text): 06/21/16 11:58 Extremely emaciated. Physical Exam Limitations: Positive for: Altered Mental Status Head: Positive for: Atraumatic, Normocephalic Pupils: Positive for: PERRL Extroacular Muscles: Positive for: EOMI Conjunctiva: Positive for: Normal Mouth: Positive for: Dry Respiratory/Chest: Positive for: Clear to Auscultation, Good Air Exchange. Negative for: Rales, Retracting, Rhonchi Cardiovascular: Positive for: Normal S1, S2 Abdomen: Positive for: Normal Bowel Sounds Back: Negative for: Decubitus Ulcer Upper Extremity: Positive for: Normal Inspection Lower Extremity: Positive for: Normal Inspection Neurological: Negative for: GCS=15, CN II-XII Intact, Speech Normal Skin: Positive for: Other (meryl hugger for temperature support) Psychiatric: Negative for: Alert, Oriented x 3, Normal Insight - Medications Active Medications: Active Medications Generic Name Dose Route Start Last Admin Trade Name Freq PRN Reason Stop Dose Admin Dextrose 50 ml 06/21/16 09:27 Dextrose 50% Inj IV Q4H PRN Hypoglycemia Heparin Sodium (Porcine) 5,000 units 06/20/16 06:00 06/21/16 06:40 Heparin SC 5,000 units Q8 CHRISTIANA Administration Vancomycin HCl 150 mls @ 150 mls/hr 06/20/16 01:15 06/21/16 01:35 Vancocin 750mg/D5w 150 Ml IVPB 06/25/16 01:16 150 mls/hr Q24H CHRISTIANA Administration Piperacillin Sod/Tazobactam Sod 50 mls @ 100 mls/hr 06/20/16 01:15 06/21/16 06:41 Zosyn 2.25 Gm Iv Premix IVPB 100 mls/hr Q6H [facility]IANA Administration Sodium Chloride 1,000 mls @ 100 mls/hr 06/20/16 08:00 06/21/16 04:36 Sodium Chloride 0.9% IV Not Given .Q10H [facility]IANA Dextrose/Sodium Chloride 1,000 mls @ 150 mls/hr 06/21/16 09:30 06/21/16 09:43 Dextrose 5%/0.45% Ns 1000 Ml IV 150 mls/hr .Q6H40M [facility]STIANA Administration Dopamine HCl/Dextrose 400 mg in 250 mls @ 3.467 mls/hr 06/21/16 09:27 10:00 Dopamine 400mg/250ml D5w IV 5 mcg/kg/min .Q24H PRN 8.666 mls/hr TITRATE PER MD ORDER Titration Protocol 2 MCG/KG/MIN Pantoprazole Sodium 40 mg 06/20/16 10:00 06/21/16 09:16 Protonix Inj IVP 40 mg DAILY CH[facility]STIANA Administration - Patient Studies Lab Studies: Lab Studies 06/21/16 06/21/16 06/21/16 Range/Units 08:34 07:50 06:32 WBC (4.8-10.8) K/uL RBC (4.40-5.90) Mil/uL Hgb (12.0-18.0) g/dL Hct (35.0-51.0) % MCV (80.0-94.0) fL MCH (27.0-31.0) pg MCHC (33.0-37.0) g/dL RDW (11.5-14.5) % Plt Count (130-400) K/uL MPV (7.2-11.7) fL Neut % (Auto) (50.0-75.0) % Lymph % (Auto) (20.0-40.0) % [place] % (Auto) (0.0-10.0) % Eos % (Auto) (0.0-4.0) % Baso % (Auto) (0.0-2.0) % Neut # (1.8-7.0) K/uL Lymph # (1.0-4.3) K/uL [place] # (0.0-0.8) K/uL Eos # (0.0-0.7) K/uL Baso # (0.0-0.2) K/uL Neutrophils % (Manual) (50-75) % Band Neutrophils % (0-2) % Lymphocytes % (Manual) (20-40) % Monocytes % (Manual) (0-10) % Platelet Estimate (NORMAL) Large Platelets Hypochromasia (manual) Poikilocytosis (manual Anisocytosis (manual) Microcytosis (manual) Macrocytosis (manual) Target Cells Ovalocytes Penrose Cells Sodium 157 H (132-148) mmol/L Potassium 3.8 (3.6-5.2) mmol/L Chloride 123 H (98-107) mmol/L Carbon Dioxide 20 L (22-30) mmol/L Anion Gap 18 (10-20) BUN 35 H (9-20) mg/dL Creatinine 1.4 (0.8-1.5) MG/DL Est GFR ( Amer) 58 Est GFR (Non-Af Amer) 48 POC Glucose (mg/dL) 180 H 43 L (65-110) mg/dL Random Glucose 44 L (75-110) mg/dL Calcium 7.4 L (8.6-10.4) mg/dl Phosphorus 3.3 (2.5-4.5) mg/dL Magnesium 2.8 H (1.6-2.3) mg/dL Total Bilirubin 0.6 (0.2-1.3) mg/dL AST 34 (17-59) U/L ALT 16 L (21-72) U/L Alkaline Phosphatase 86 (38-126) U/L Total Protein 6.9 (6.3-8.3) g/dL Albumin 2.9 L (3.5-5.0) g/dL Globulin 3.9 (2.2-3.9) gm/dL Albumin/Globulin Ratio 0.7 L (1.0-2.1) 06/21/16 Range/Units 06:32 WBC 8.4 (4.8-10.8) K/uL RBC 3.67 L (4.40-5.90) Mil/uL Hgb 8.3 L (12.0-18.0) g/dL Hct 27.0 L (35.0-51.0) % MCV 73.6 L D (80.0-94.0) fL MCH 22.5 L (27.0-31.0) pg MCHC 30.5 L (33.0-37.0) g/dL RDW 18.7 H (11.5-14.5) % Plt Count 238 (130-400) K/uL MPV 7.8 (7.2-11.7) fL Neut % (Auto) 90.0 H (50.0-75.0) % Lymph % (Auto) 4.0 L (20.0-40.0) % [place] % (Auto) 6.0 (0.0-10.0) % Eos % (Auto) 0.0 (0.0-4.0) % Baso % (Auto) 0.0 (0.0-2.0) % Neut # 7.6 H (1.8-7.0) K/uL Lymph # 0.3 L (1.0-4.3) K/uL [place] # 0.5 (0.0-0.8) K/uL Eos # 0.0 (0.0-0.7) K/uL Baso # 0.0 (0.0-0.2) K/uL Neutrophils % (Manual) 90 H (50-75) % Band Neutrophils % 1 (0-2) % Lymphocytes % (Manual) 4 L (20-40) % Monocytes % (Manual) 5 (0-10) % Platelet Estimate Normal (NORMAL) Large Platelets Present Hypochromasia (manual) Moderate Poikilocytosis (manual Slight Anisocytosis (manual) Slight Microcytosis (manual) Slight Macrocytosis (manual) Slight Target Cells Moderate Ovalocytes Slight Sofi Cells Moderate Sodium (132-148) mmol/L Potassium (3.6-5.2) mmol/L Chloride (98-107) mmol/L Carbon Dioxide (22-30) mmol/L Anion Gap (10-20) BUN (9-20) mg/dL Creatinine (0.8-1.5) MG/DL Est GFR ( Amer) Est GFR (Non-Af Amer) POC Glucose (mg/dL) (65-110) mg/dL Random Glucose (75-110) mg/dL Calcium (8.6-10.4) mg/dl Phosphorus (2.5-4.5) mg/dL Magnesium (1.6-2.3) mg/dL Total Bilirubin (0.2-1.3) mg/dL AST (17-59) U/L ALT (21-72) U/L Alkaline Phosphatase (38-126) U/L Total Protein (6.3-8.3) g/dL Albumin (3.5-5.0) g/dL Globulin (2.2-3.9) gm/dL Albumin/Globulin Ratio (1.0-2.1) Laboratory Results - last 24 hr 06/21/16 06/21/16 06/21/16 06:32 06:32 07:50 WBC 8.4 RBC 3.67 L Hgb 8.3 L Hct 27.0 L MCV 73.6 L D MCH 22.5 L MCHC 30.5 L RDW 18.7 H Plt Count 238 MPV 7.8 Neut % (Auto) 90.0 H Lymph % (Auto) 4.0 L [place] % (Auto) 6.0 Eos % (Auto) 0.0 Baso % (Auto) 0.0 Neut # 7.6 H Lymph # 0.3 L [place] # 0.5 Eos # 0.0 Baso # 0.0 Neutrophils % (Manual) 90 H Band Neutrophils % 1 Lymphocytes % (Manual) 4 L Monocytes % (Manual) 5 Platelet Estimate Normal Large Platelets Present Hypochromasia (manual) Moderate Poikilocytosis (manual Slight Anisocytosis (manual) Slight Microcytosis (manual) Slight Macrocytosis (manual) Slight Target Cells Moderate Ovalocytes Slight Penrose Cells Moderate Sodium 157 H Potassium 3.8 Chloride 123 H Carbon Dioxide 20 L Anion Gap 18 BUN 35 H Creatinine 1.4 Est GFR ( Amer) 58 Est GFR (Non-Af Amer) 48 POC Glucose (mg/dL) 43 L Random Glucose 44 L Calcium 7.4 L Phosphorus 3.3 Magnesium 2.8 H Total Bilirubin 0.6 AST 34 ALT 16 L Alkaline Phosphatase 86 Total Protein 6.9 Albumin 2.9 L Globulin 3.9 Albumin/Globulin Ratio 0.7 L 06/21/16 08:34 WBC RBC Hgb Hct MCV MCH MCHC RDW Plt Count MPV Neut % (Auto) Lymph % (Auto) [place] % (Auto) Eos % (Auto) Baso % (Auto) Neut # Lymph # [place] # Eos # Baso # Neutrophils % (Manual) Band Neutrophils % Lymphocytes % (Manual) Monocytes % (Manual) Platelet Estimate Large Platelets Hypochromasia (manual) Poikilocytosis (manual Anisocytosis (manual) Microcytosis (manual) Macrocytosis (manual) Target Cells Ovalocytes Penrose Cells Sodium Potassium Chloride Carbon Dioxide Anion Gap BUN Creatinine Est GFR ( Amer) Est GFR (Non-Af Amer) POC Glucose (mg/dL) 180 H Random Glucose Calcium Phosphorus Magnesium Total Bilirubin AST ALT Alkaline Phosphatase Total Protein Albumin Globulin Albumin/Globulin Ratio Fingerstick Blood Sugar Results: 112 Review of Systems - Review of Systems Systems not reviewed;Unavailable: Altered Mental Status Assessment/Plan - Assessment and Plan (Free Text) Assessment: Pt is an 89 year old male, with PMHx of GERD, arthritis, anemia, HTN, and dementia. Pt septic, severely dehydrated on arrival to ED. Treated with Zosyn and IVF supplementation. Unknown source of sepsis. Plan: Pt STATUS: ADMITTED to ICU, DNR/DNI NEURO: AMS - pt demented at baseline - last time AAOx3 was 'month ago' before stroke - CT Head (05/10/2016): Hypodense area (1.8x1.7cm) in left frontal white matter could represent early ischemic injury - MRI (05/11/2016): No mass effect or edema. 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 No acute intracranial findings. Hypothermia overnight - Temp (<96 F) - Meryl hugger started CV: Hypotension - One pressor (one is limit per family): Levophed changed to Dopamine this AM - Dopamine Drip PULM: O2 saturation: CXR: Hyperinflation suggestive for COPD/emphysematous changes. Increased markings in medial left lower lung zone which may represent focal consolidation vs atelectasis vs infiltrate. More consolidative changes in the left midlung zone. (see full report) /Renal: Hypernatremia - believed secondary to dehydration - 157 on AM labs, downtrending from 160 yesterday - D5/0.5 NS @ 150cc/hr ENDO: No DM on pt chart - hypoglycemic episode (06/21/16) B - 1 amp of D50 given - D5/0.5 NS @ 150cc/hr ID: SIRS Criteria: WBC WNL (8.4) but uptrending with left shift, Temp (<96.8), No tachycardia - CXR: Hyperinflation suggestive for COPD/emphysematous changes. Increased markings in medial left lower lung zone which may represent focal consolidation vs atelectasis vs infiltrate. More consolidative changes in the left midlung zone. (see full report) - Zosyn 2.25gm IV Q6H (Day 2), Vancomycin 750mg IV (Day 2 of 6 day course) - Procalcitonin 0.05, Lactate 1.4 on ABG - Blood Cx (06/19/16): No growth for 24 hours x 2 - UA: LE and nitrate negative, rest WNL Prophylaxis Heparin 5000 units SC Q8 Protonix 40mg IV Daily SCDs <Rafa Camacho S - Last Filed: 06/21/16 18:53> CCU Subjective - Physician Review Critical Care Time Spent (in minutes): 0 CCU Objective - Vital Signs / Intake & Output Vital Signs (Last 4 hours): Vital Signs Pulse Resp BP Pulse Ox 06/21/16 17:20 66 11 L 99 06/21/16 17:10 69 10 L 99 06/21/16 17:07 105/61 06/21/16 17:06 70 13 98 06/21/16 17:00 60 11 L 99 06/21/16 16:50 79 14 100 06/21/16 16:41 55 L 9 L 98 06/21/16 16:31 62 8 L 90 L 06/21/16 16:20 65 13 99 06/21/16 16:10 54 L 14 99 06/21/16 16:07 113/60 06/21/16 16:05 113 H 18 97 06/21/16 16:00 83 10 L 98 06/21/16 15:51 71 12 97 06/21/16 15:40 68 10 L 98 06/21/16 15:30 54 L 10 L 98 06/21/16 15:20 58 L 12 99 06/21/16 15:11 76 11 L 06/21/16 15:08 66 11 L 103/60 06/21/16 15:02 65 11 L 97/52 L 06/21/16 15:00 69 11 L Intake and Output (Last 8hrs): Intake & Output 06/21/16 06/21/16 06/21/16 06:59 14:59 22:59 Intake Total 6 1737 1638.4 Output Total 1150 550 Balance 876 1187 1638.4 Weight 101 lb 14.4 oz Intake: IV 880 454 1125 Intake, IV Amount 1520 1401 568.4 Left Proximal Port Wrist 720 351 68.4 Left Wrist 800 1050 500 Oral 0 0 Output: Urine 1150 550 Urethral (Redd) 1150 550 Other: # Bowel Movements 1 - Medications Active Medications: Active Medications Generic Name Dose Route Start Last Admin Trade Name Freq PRN Reason Stop Dose Admin Dextrose 50 ml 06/21/16 09:27 Dextrose 50% Inj IV Q4H PRN Hypoglycemia Heparin Sodium (Porcine) 5,000 units 06/20/16 06:00 06/21/16 13:23 Heparin SC 5,000 units Q8 CH[facility]STIANA Administration Vancomycin HCl 150 mls @ 150 mls/hr 06/20/16 01:15 06/21/16 01:35 Vancocin 750mg/D5w 150 Ml IVPB 06/25/16 01:16 150 mls/hr Q24H CHRISTIANA Administration Piperacillin Sod/Tazobactam Sod 50 mls @ 100 mls/hr 06/20/16 01:15 06/21/16 13:22 Zosyn 2.25 Gm Iv Premix IVPB 100 mls/hr Q6H [facility]STIANA Administration Sodium Chloride 1,000 mls @ 100 mls/hr 06/20/16 08:00 06/21/16 17:22 Sodium Chloride 0.9% IV Not Given .Q10H [facility]NA Dextrose/Sodium Chloride 1,000 mls @ 150 mls/hr 06/21/16 09:30 06/21/16 17:23 Dextrose 5%/0.45% Ns 1000 Ml IV 150 mls/hr .Q6H40M [facility]STIANA Administration Dopamine HCl/Dextrose 400 mg in 250 mls @ 3.467 mls/hr 06/21/16 09:27 18:00 Dopamine 400mg/250ml D5w IV 8.3 mcg/kg/min .Q24H PRN 14.4 mls/hr TITRATE PER MD ORDER Titration Protocol 2 MCG/KG/MIN Pantoprazole Sodium 40 mg 06/20/16 10:00 06/21/16 09:16 Protonix Inj IVP 40 mg DAILY CH[facility]STIANA Administration - Patient Studies Lab Studies: Microbiology Studies 06/20/16 01:26 MRSA Culture (Admit) - Final Naris MRSA NOT DETECTED Lab Studies 06/21/16 06/21/16 06/21/16 Range/Units 12:36 10:00 08:34 WBC (4.8-10.8) K/uL RBC (4.40-5.90) Mil/uL Hgb (12.0-18.0) g/dL Hct (35.0-51.0) % MCV (80.0-94.0) fL MCH (27.0-31.0) pg MCHC (33.0-37.0) g/dL RDW (11.5-14.5) % Plt Count (130-400) K/uL MPV (7.2-11.7) fL Neut % (Auto) (50.0-75.0) % Lymph % (Auto) (20.0-40.0) % [place] % (Auto) (0.0-10.0) % Eos % (Auto) (0.0-4.0) % Baso % (Auto) (0.0-2.0) % Neut # (1.8-7.0) K/uL Lymph # (1.0-4.3) K/uL [place] # (0.0-0.8) K/uL Eos # (0.0-0.7) K/uL Baso # (0.0-0.2) K/uL Neutrophils % (Manual) (50-75) % Band Neutrophils % (0-2) % Lymphocytes % (Manual) (20-40) % Monocytes % (Manual) (0-10) % Platelet Estimate (NORMAL) Large Platelets Hypochromasia (manual) Poikilocytosis (manual Anisocytosis (manual) Microcytosis (manual) Macrocytosis (manual) Target Cells Ovalocytes Penrose Cells Sodium (132-148) mmol/L Potassium (3.6-5.2) mmol/L Chloride (98-107) mmol/L Carbon Dioxide (22-30) mmol/L Anion Gap (10-20) BUN (9-20) mg/dL Creatinine (0.8-1.5) MG/DL Est GFR ( Amer) Est GFR (Non-Af Amer) POC Glucose (mg/dL) 147 H 180 H (65-110) mg/dL Random Glucose (75-110) mg/dL Calcium (8.6-10.4) mg/dl Phosphorus (2.5-4.5) mg/dL Magnesium (1.6-2.3) mg/dL Total Bilirubin (0.2-1.3) mg/dL AST (17-59) U/L ALT (21-72) U/L Alkaline Phosphatase (38-126) U/L Total Protein (6.3-8.3) g/dL Albumin (3.5-5.0) g/dL Globulin (2.2-3.9) gm/dL Albumin/Globulin Ratio (1.0-2.1) Procalcitonin 0.05 L (0.19-0.49) NG/ML 06/21/16 06/21/16 06/21/16 Range/Units 07:50 06:32 06:32 WBC 8.4 (4.8-10.8) K/uL RBC 3.67 L (4.40-5.90) Mil/uL Hgb 8.3 L (12.0-18.0) g/dL Hct 27.0 L (35.0-51.0) % MCV 73.6 L D (80.0-94.0) fL MCH 22.5 L (27.0-31.0) pg MCHC 30.5 L (33.0-37.0) g/dL RDW 18.7 H (11.5-14.5) % Plt Count 238 (130-400) K/uL MPV 7.8 (7.2-11.7) fL Neut % (Auto) 90.0 H (50.0-75.0) % Lymph % (Auto) 4.0 L (20.0-40.0) % [place] % (Auto) 6.0 (0.0-10.0) % Eos % (Auto) 0.0 (0.0-4.0) % Baso % (Auto) 0.0 (0.0-2.0) % Neut # 7.6 H (1.8-7.0) K/uL Lymph # 0.3 L (1.0-4.3) K/uL [place] # 0.5 (0.0-0.8) K/uL Eos # 0.0 (0.0-0.7) K/uL Baso # 0.0 (0.0-0.2) K/uL Neutrophils % (Manual) 90 H (50-75) % Band Neutrophils % 1 (0-2) % Lymphocytes % (Manual) 4 L (20-40) % Monocytes % (Manual) 5 (0-10) % Platelet Estimate Normal (NORMAL) Large Platelets Present Hypochromasia (manual) Moderate Poikilocytosis (manual Slight Anisocytosis (manual) Slight Microcytosis (manual) Slight Macrocytosis (manual) Slight Target Cells Moderate Ovalocytes Slight Sofi Cells Moderate Sodium 157 H (132-148) mmol/L Potassium 3.8 (3.6-5.2) mmol/L Chloride 123 H (98-107) mmol/L Carbon Dioxide 20 L (22-30) mmol/L Anion Gap 18 (10-20) BUN 35 H (9-20) mg/dL Creatinine 1.4 (0.8-1.5) MG/DL Est GFR ( Amer) 58 Est GFR (Non-Af Amer) 48 POC Glucose (mg/dL) 43 L (65-110) mg/dL Random Glucose 44 L (75-110) mg/dL Calcium 7.4 L (8.6-10.4) mg/dl Phosphorus 3.3 (2.5-4.5) mg/dL Magnesium 2.8 H (1.6-2.3) mg/dL Total Bilirubin 0.6 (0.2-1.3) mg/dL AST 34 (17-59) U/L ALT 16 L (21-72) U/L Alkaline Phosphatase 86 (38-126) U/L Total Protein 6.9 (6.3-8.3) g/dL Albumin 2.9 L (3.5-5.0) g/dL Globulin 3.9 (2.2-3.9) gm/dL Albumin/Globulin Ratio 0.7 L (1.0-2.1) Procalcitonin (0.19-0.49) NG/ML Laboratory Results - last 24 hr 06/21/16 06/21/16 06/21/16 06:32 06:32 07:50 WBC 8.4 RBC 3.67 L Hgb 8.3 L Hct 27.0 L MCV 73.6 L D MCH 22.5 L MCHC 30.5 L RDW 18.7 H Plt Count 238 MPV 7.8 Neut % (Auto) 90.0 H Lymph % (Auto) 4.0 L [place] % (Auto) 6.0 Eos % (Auto) 0.0 Baso % (Auto) 0.0 Neut # 7.6 H Lymph # 0.3 L [place] # 0.5 Eos # 0.0 Baso # 0.0 Neutrophils % (Manual) 90 H Band Neutrophils % 1 Lymphocytes % (Manual) 4 L Monocytes % (Manual) 5 Platelet Estimate Normal Large Platelets Present Hypochromasia (manual) Moderate Poikilocytosis (manual Slight Anisocytosis (manual) Slight Microcytosis (manual) Slight Macrocytosis (manual) Slight Target Cells Moderate Ovalocytes Slight Penrose Cells Moderate Sodium 157 H Potassium 3.8 Chloride 123 H Carbon Dioxide 20 L Anion Gap 18 BUN 35 H Creatinine 1.4 Est GFR ( Amer) 58 Est GFR (Non-Af Amer) 48 POC Glucose (mg/dL) 43 L Random Glucose 44 L Calcium 7.4 L Phosphorus 3.3 Magnesium 2.8 H Total Bilirubin 0.6 AST 34 ALT 16 L Alkaline Phosphatase 86 Total Protein 6.9 Albumin 2.9 L Globulin 3.9 Albumin/Globulin Ratio 0.7 L Procalcitonin 06/21/16 06/21/16 06/21/16 08:34 10:00 12:36 WBC RBC Hgb Hct MCV MCH MCHC RDW Plt Count MPV Neut % (Auto) Lymph % (Auto) [place] % (Auto) Eos % (Auto) Baso % (Auto) Neut # Lymph # [place] # Eos # Baso # Neutrophils % (Manual) Band Neutrophils % Lymphocytes % (Manual) Monocytes % (Manual) Platelet Estimate Large Platelets Hypochromasia (manual) Poikilocytosis (manual Anisocytosis (manual) Microcytosis (manual) Macrocytosis (manual) Target Cells Ovalocytes Sofi Cells Sodium Potassium Chloride Carbon Dioxide Anion Gap BUN Creatinine Est GFR ( Amer) Est GFR (Non-Af Amer) POC Glucose (mg/dL) 180 H 147 H Random Glucose Calcium Phosphorus Magnesium Total Bilirubin AST ALT Alkaline Phosphatase Total Protein Albumin Globulin Albumin/Globulin Ratio Procalcitonin 0.05 L Attending/Attestation - Attestation I have personally seen and examined this patient.: Yes I have fully participated in the care of the patient.: Yes I have reviewed all pertinent clinical information: Yes Notes (Text): 06/21/16 18:53 Patient seen and examined in the intensive care unit. Case discussed with house staff in the morning rounds. Patient remains lethargic and on pressors Continue fluid resuscitation DNR/DNI
[2016-06-22] MEDS: Piperacill/Tazo 2.25gm in Dex 50 ML IVPB SCH ×2 (01:01→07:03)
[2016-06-22] MEDS: Vancomycin 750mg/D5W 150 ml 150 ML IVPB SCH (01:02)
[2016-06-22] MEDS: DOPamine 400mg/250ml D5W 400 MG/250 ML BAG IV PRN (02:57)
[2016-06-22] MEDS: Sodium Chloride 0.9% 1,000 ML IV SCH (03:33)
--- NOTE | 2016-06-22 06:43 | PN ---
DATE: 06/21/2016 SUBJECTIVE: overnight, he became hypotensive . Also patient was hypothermic and he had to have Cosme hugger. No change in the patient's mental status. PHYSICAL EXAMINATION: VITAL SIGNS: Blood pressure 113/50, temperature 98.4, respiratory rate 18, pulse 83. NECK: No bruit, no lymph node, no thyromegaly. CHEST AND LUNGS: Bilateral symmetrical expansion and bilateral basilar rales . CARDIOVASCULAR: S1, S2. no additional sounds ABDOMEN: No organomegaly, no masses. EXTREMITIES: No cyanosis, no clubbing, no edema. CENTRAL NERVOUS SYSTEM: The patient is lethargic but is awake and not following commands. LABORATORY DATA: Blood work showed sodium 157. BUN of 35 and creatinine 1.4. Procalcitonin 0.05. ASSESSMENT: Sepsis, pneumonia, acute kidney injury with elevated BUN and creatinine, hypernatremia, dehydration, palliative care consult was called and plan the patient is DNR and DNI. Nigel Kelley MD cc: [phone] TT: 06/21/2016 23:33:28 Confirmation # [id number] Dictation # [id number] ln MTDD
[2016-06-22] MEDS: Dextrose 5%/0.45% NS 1,000 ML IV SCH ×3 (06:45→23:29)
[2016-06-22 06:48] LABS: CHLORIDE 117 mmol/L (98-107); SODIUM 150 mmol/L (132-148)
[2016-06-22 06:49] LABS: POTASSIUM 3.7 mmol/L (3.6-5.2)
[2016-06-22 06:50] LABS: GFR AFRICAN-AMERICAN > 60
[2016-06-22 06:51] LABS: ALB/GLOB RATIO 0.7 (1.0-2.1); ALKALINE PHOSPHATASE 76 U/L (38-126); ALT/SGPT 13 U/L (21-72); AST/SGOT 36 U/L (17-59); BILIRUBIN,TOTAL 0.9 mg/dL (0.2-1.3); BLOOD UREA NITROGEN 25 mg/dL (9-20); CARBON DIOXIDE 21 mmol/L (22-30); GLUCOSE,RANDOM 78 mg/dL (75-110); PHOSPHOROUS 2.3 mg/dL (2.5-4.5); TOTAL PROTEIN 6.3 g/dL (6.3-8.3)
[2016-06-22 06:52] LABS: CALCIUM 7.1 mg/dl (8.6-10.4); MAGNESIUM 2.4 mg/dL (1.6-2.3)
[2016-06-22 06:54] LABS: BASO % 0.6 % (0.0-2.0); EOS # 0.1 K/uL (0.0-0.7); EOS % 1.1 % (0.0-4.0); HEMATOCRIT 26.6 % (35.0-51.0); LYMPH # 0.4 K/uL (1.0-4.3); LYMPH % 7.1 % (20.0-40.0); MEAN CELL VOLUME 73.4 fL (80.0-94.0); MEAN CORPUSCULAR HGB CONC 31.3 g/dL (33.0-37.0); MEAN PLATELET VOLUME 7.7 fL (7.2-11.7); MONO # 0.6 K/uL (0.0-0.8); MONO % 9.3 % (0.0-10.0); NRBC % 0.9 % (0.0-2.0); PLATELET COUNT 185 K/uL (130-400); RED CELL DISTRIBUTION WIDTH 18.3 % (11.5-14.5)
--- NOTE | 2016-06-22 06:56 | CP.CCUPN ---
<Moe Major - Last Filed: 06/22/16 14:33> CCU Subjective - Physician Review Subjective (Free Text): 06/22/16 13:58 Pt seen and examined at bedside. Pt remains hypothermic despite Meryl hugger. Pt POLST form says 'No artificial nutrition.' Attending, palliative care nurse, and nursing staff, all attempting to reach son, Bryan, to clarify his wishes for the pressors. ROS unobtainable due to patient clinical status. Critical Care Time Spent (in minutes): 35 CCU Objective - Vital Signs / Intake & Output Vital Signs (Last 4 hours): Vital Signs Temp Pulse Resp BP Pulse Ox 06/22/16 06:00 53 L 17 103/58 L 100 06/22/16 05:00 56 L 15 142/53 L 06/22/16 04:00 96.5 F L 54 L 15 118/52 L 100 06/22/16 03:00 53 L 17 90/42 L 06/22/16 02:57 17 122/57 L 100 Intake and Output (Last 8hrs): Intake & Output 06/21/16 06/21/16 06/22/16 14:59 22:59 06:59 Intake Total 1737 2288.8 2159.4 Output Total 550 100 0 Balance 1187 2188.8 2159.4 Weight 112 lb 6.4 oz Intake: IV 336 1070 1150 Intake, IV Amount 1401 1218.8 1009.4 Left Proximal Port Wrist 351 118.8 59.4 Left Wrist 1050 1100 950 Oral 0 Output: Urine 550 100 0 Condom 0 0 Urethral (Redd) 550 100 Other: # Voids Urethral (Redd) 1 Urine, Voided 1 1 - Physical Exam Head: Positive for: Atraumatic, Normocephalic Pupils: Positive for: PERRL Extroacular Muscles: Positive for: EOMI Conjunctiva: Positive for: Normal Mouth: Positive for: Dry Respiratory/Chest: Positive for: Clear to Auscultation, Good Air Exchange. Negative for: Rales, Retracting, Rhonchi Cardiovascular: Positive for: Normal S1, S2 Abdomen: Positive for: Normal Bowel Sounds Back: Negative for: Decubitus Ulcer Upper Extremity: Positive for: Normal Inspection Lower Extremity: Positive for: Normal Inspection Neurological: Negative for: GCS=15, CN II-XII Intact, Speech Normal Skin: Positive for: Other (meryl nelson for temperature support) Psychiatric: Negative for: Alert, Oriented x 3, Normal Insight - Medications Active Medications: Active Medications Generic Name Dose Route Start Last Admin Trade Name Freq PRN Reason Stop Dose Admin Dextrose 50 ml 06/21/16 09:27 Dextrose 50% Inj IV Q4H PRN Hypoglycemia Heparin Sodium (Porcine) 5,000 units 06/20/16 06:00 06/21/16 21:21 Heparin SC 5,000 units Q8 [facility]IANA Administration Vancomycin HCl 150 mls @ 150 mls/hr 06/20/16 01:15 06/22/16 01:02 Vancocin 750mg/D5w 150 Ml IVPB 06/25/16 01:16 150 mls/hr Q24H [facility]IANA Administration Piperacillin Sod/Tazobactam Sod 50 mls @ 100 mls/hr 06/20/16 01:15 06/22/16 01:01 Zosyn 2.25 Gm Iv Premix IVPB 100 mls/hr Q6H [facility] Administration Sodium Chloride 1,000 mls @ 100 mls/hr 06/20/16 08:00 06/22/16 03:33 Sodium Chloride 0.9% IV Not Given .Q10H [facility] Dextrose/Sodium Chloride 1,000 mls @ 150 mls/hr 06/21/16 09:30 06/22/16 06:45 Dextrose 5%/0.45% Ns 1000 Ml IV Not Given .Q6H40M [facility]IANA Dopamine HCl/Dextrose 400 mg in 250 mls @ 3.467 mls/hr 06/21/16 09:27 02:57 Dopamine 400mg/250ml D5w IV 8.3 mcg/kg/min .Q24H PRN 14.385 mls/hr TITRATE PER MD ORDER Administration Protocol 2 MCG/KG/MIN Pantoprazole Sodium 40 mg 06/20/16 10:00 06/21/16 09:16 Protonix Inj IVP 40 mg DAILY [facility]IANA Administration - Patient Studies Lab Studies: Microbiology Studies 06/20/16 01:26 MRSA Culture (Admit) - Final Naris MRSA NOT DETECTED Lab Studies 06/21/16 06/21/16 06/21/16 Range/Units 12:36 10:00 08:34 WBC (4.8-10.8) K/uL RBC (4.40-5.90) Mil/uL Hgb (12.0-18.0) g/dL Hct (35.0-51.0) % MCV (80.0-94.0) fL MCH (27.0-31.0) pg MCHC (33.0-37.0) g/dL RDW (11.5-14.5) % Plt Count (130-400) K/uL MPV (7.2-11.7) fL Neut % (Auto) (50.0-75.0) % Lymph % (Auto) (20.0-40.0) % Robertson % (Auto) (0.0-10.0) % Eos % (Auto) (0.0-4.0) % Baso % (Auto) (0.0-2.0) % Neut # (1.8-7.0) K/uL Lymph # (1.0-4.3) K/uL Robertson # (0.0-0.8) K/uL Eos # (0.0-0.7) K/uL Baso # (0.0-0.2) K/uL Neutrophils % (Manual) (50-75) % Band Neutrophils % (0-2) % Lymphocytes % (Manual) (20-40) % Monocytes % (Manual) (0-10) % Platelet Estimate (NORMAL) Large Platelets Hypochromasia (manual) Poikilocytosis (manual Anisocytosis (manual) Microcytosis (manual) Macrocytosis (manual) Target Cells Ovalocytes Sofi Cells Potassium (3.6-5.2) mmol/L Carbon Dioxide (22-30) mmol/L Anion Gap (10-20) BUN (9-20) mg/dL Creatinine (0.8-1.5) MG/DL Est GFR ( Amer) Est GFR (Non-Af Amer) POC Glucose (mg/dL) 147 H 180 H (65-110) mg/dL Random Glucose (75-110) mg/dL Calcium (8.6-10.4) mg/dl Phosphorus (2.5-4.5) mg/dL Magnesium (1.6-2.3) mg/dL Total Bilirubin (0.2-1.3) mg/dL AST (17-59) U/L ALT (21-72) U/L Alkaline Phosphatase (38-126) U/L Total Protein (6.3-8.3) g/dL Globulin (2.2-3.9) gm/dL Albumin/Globulin Ratio (1.0-2.1) Procalcitonin 0.05 L (0.19-0.49) NG/ML 06/21/16 06/21/16 06/21/16 Range/Units 07:50 06:32 06:32 WBC 8.4 (4.8-10.8) K/uL RBC 3.67 L (4.40-5.90) Mil/uL Hgb 8.3 L (12.0-18.0) g/dL Hct 27.0 L (35.0-51.0) % MCV 73.6 L D (80.0-94.0) fL MCH 22.5 L (27.0-31.0) pg MCHC 30.5 L (33.0-37.0) g/dL RDW 18.7 H (11.5-14.5) % Plt Count 238 (130-400) K/uL MPV 7.8 (7.2-11.7) fL Neut % (Auto) 90.0 H (50.0-75.0) % Lymph % (Auto) 4.0 L (20.0-40.0) % Robertson % (Auto) 6.0 (0.0-10.0) % Eos % (Auto) 0.0 (0.0-4.0) % Baso % (Auto) 0.0 (0.0-2.0) % Neut # 7.6 H (1.8-7.0) K/uL Lymph # 0.3 L (1.0-4.3) K/uL Robertson # 0.5 (0.0-0.8) K/uL Eos # 0.0 (0.0-0.7) K/uL Baso # 0.0 (0.0-0.2) K/uL Neutrophils % (Manual) 90 H (50-75) % Band Neutrophils % 1 (0-2) % Lymphocytes % (Manual) 4 L (20-40) % Monocytes % (Manual) 5 (0-10) % Platelet Estimate Normal (NORMAL) Large Platelets Present Hypochromasia (manual) Moderate Poikilocytosis (manual Slight Anisocytosis (manual) Slight Microcytosis (manual) Slight Macrocytosis (manual) Slight Target Cells Moderate Ovalocytes Slight [place] Cells Moderate Potassium 3.8 (3.6-5.2) mmol/L Carbon Dioxide 20 L (22-30) mmol/L Anion Gap 18 (10-20) BUN 35 H (9-20) mg/dL Creatinine 1.4 (0.8-1.5) MG/DL Est GFR ( Amer) 58 Est GFR (Non-Af Amer) 48 POC Glucose (mg/dL) 43 L (65-110) mg/dL Random Glucose 44 L (75-110) mg/dL Calcium 7.4 L (8.6-10.4) mg/dl Phosphorus 3.3 (2.5-4.5) mg/dL Magnesium 2.8 H (1.6-2.3) mg/dL Total Bilirubin 0.6 (0.2-1.3) mg/dL AST 34 (17-59) U/L ALT 16 L (21-72) U/L Alkaline Phosphatase 86 (38-126) U/L Total Protein 6.9 (6.3-8.3) g/dL Globulin 3.9 (2.2-3.9) gm/dL Albumin/Globulin Ratio 0.7 L (1.0-2.1) Procalcitonin (0.19-0.49) NG/ML Laboratory Results - last 24 hr 06/21/16 06/21/16 06/21/16 06:32 06:32 07:50 WBC 8.4 RBC 3.67 L Hgb 8.3 L Hct 27.0 L MCV 73.6 L D MCH 22.5 L MCHC 30.5 L RDW 18.7 H Plt Count 238 MPV 7.8 Neut % (Auto) 90.0 H Lymph % (Auto) 4.0 L Robertson % (Auto) 6.0 Eos % (Auto) 0.0 Baso % (Auto) 0.0 Neut # 7.6 H Lymph # 0.3 L Robertson # 0.5 Eos # 0.0 Baso # 0.0 Neutrophils % (Manual) 90 H Band Neutrophils % 1 Lymphocytes % (Manual) 4 L Monocytes % (Manual) 5 Platelet Estimate Normal Large Platelets Present Hypochromasia (manual) Moderate Poikilocytosis (manual Slight Anisocytosis (manual) Slight Microcytosis (manual) Slight Macrocytosis (manual) Slight Target Cells Moderate Ovalocytes Slight Sofi Cells Moderate Potassium 3.8 Carbon Dioxide 20 L Anion Gap 18 BUN 35 H Creatinine 1.4 Est GFR ( Amer) 58 Est GFR (Non-Af Amer) 48 POC Glucose (mg/dL) 43 L Random Glucose 44 L Calcium 7.4 L Phosphorus 3.3 Magnesium 2.8 H Total Bilirubin 0.6 AST 34 ALT 16 L Alkaline Phosphatase 86 Total Protein 6.9 Globulin 3.9 Albumin/Globulin Ratio 0.7 L Procalcitonin 06/21/16 06/21/16 06/21/16 08:34 10:00 12:36 WBC RBC Hgb Hct MCV MCH MCHC RDW Plt Count MPV Neut % (Auto) Lymph % (Auto) Robertson % (Auto) Eos % (Auto) Baso % (Auto) Neut # Lymph # Robertson # Eos # Baso # Neutrophils % (Manual) Band Neutrophils % Lymphocytes % (Manual) Monocytes % (Manual) Platelet Estimate Large Platelets Hypochromasia (manual) Poikilocytosis (manual Anisocytosis (manual) Microcytosis (manual) Macrocytosis (manual) Target Cells Ovalocytes Sofi Cells Potassium Carbon Dioxide Anion Gap BUN Creatinine Est GFR ( Amer) Est GFR (Non-Af Amer) POC Glucose (mg/dL) 180 H 147 H Random Glucose Calcium Phosphorus Magnesium Total Bilirubin AST ALT Alkaline Phosphatase Total Protein Globulin Albumin/Globulin Ratio Procalcitonin 0.05 L Fingerstick Blood Sugar Results: 112 Review of Systems - Review of Systems Systems not reviewed;Unavailable: Altered Mental Status Assessment/Plan - Assessment and Plan (Free Text) Assessment: Pt is an 89 year old male, with PMHx of GERD, arthritis, anemia, HTN, and dementia. Pt septic, severely dehydrated on arrival to ED. Treated with Zosyn and IVF supplementation. Unknown source of sepsis. Plan: Plan: Pt STATUS: ADMITTED to ICU, DNR/DNI NEURO: AMS - pt demented at baseline - last time AAOx3 was 'month ago' before stroke - CT Head (05/10/2016): Hypodense area (1.8x1.7cm) in left frontal white matter could represent early ischemic injury - MRI (05/11/2016): No mass effect or edema. Chronic microvascular changes are seen .Chronic white matter infarct in the left frontal lobe. No acute intracranial findings. (see full report) Hypothermia - Temp (<96 F) - Meryl hugger started CV: Hypotension - One pressor (one is limit per POA): Levophed changed to Dopamine this AM - Dopamine Drip PULM: O2 saturation: CXR (06/19/16): Hyperinflation suggestive for COPD/emphysematous changes. Increased markings in medial left lower lung zone which may represent focal consolidation vs atelectasis vs infiltrate. More consolidative changes in the left midlung zone. (see full report) /Renal: Hypernatremia - believed secondary to dehydration - 150 on AM labs, downtrending from 157 yesterday - D5/0.5 NS @ 150cc/hr Hypophosphatemia - 2.3 on AM labs - Start Kphos 30 mmole ONCE - f/u AM labs ENDO: No DM on pt chart - hypoglycemic episode (06/21/16) B - D5/0.5 NS @ 75 cc/hr ID: SIRS Criteria: WBC WNL (8.4) but uptrending with left shift, Temp (<96.8), No tachycardia - CXR (06/19/16): Hyperinflation suggestive for COPD/emphysematous changes. Increased markings in medial left lower lung zone which may represent focal consolidation vs atelectasis vs infiltrate. More consolidative changes in the left midlung zone. (see full report) - Zosyn 2.25gm IV Q6H (Day 3) - Vancomycin 750mg IV (Day 3 of 6 day course) - f/u Vanc level - Procalcitonin 0.05, Lactate 1.4 on ABG - Blood Cx (06/19/16): No growth for 48 hours x 2 - UA: LE and nitrate negative, rest WNL Prophylaxis Heparin 5000 units SC Q8 Protonix 40mg IV Daily SCDs <Kanwal Nicole - Last Filed: 06/22/16 18:14> CCU Objective - Vital Signs / Intake & Output Vital Signs (Last 4 hours): Vital Signs Temp Pulse Resp BP Pulse Ox 06/22/16 16:00 96.8 F L 52 L 15 88/55 L 95 06/22/16 15:09 47 L 13 105/48 L 100 06/22/16 15:00 94.4 F L 54 L 11 L 100 06/22/16 14:54 56 L 10 L 93/46 L 100 06/22/16 14:50 67 15 93 L 06/22/16 14:40 50 L 9 L 100 06/22/16 14:30 55 L 8 L 100 06/22/16 14:20 57 L 12 100 Intake and Output (Last 8hrs): Intake & Output 06/22/16 06/22/16 06/22/16 06:59 14:59 22:59 Intake Total 2159.4 1169.1 322 Output Total 0 300 Balance 2159.4 869.1 322 Intake: IV 1150 55 Intake, IV Amount 1009.4 1114.1 322 Left Hand 364 82 Left Proximal Port Wrist 59.4 50.1 15 Left Wrist 950 700 225 Oral 0 Output: Urine 0 300 Condom 0 Urine, Voided 300 Other: # Voids Urine, Voided 1 # Bowel Movements 2 - Medications Active Medications: Active Medications Generic Name Dose Route Start Last Admin Trade Name Freq PRN Reason Stop Dose Admin Heparin Sodium (Porcine) 5,000 units 06/20/16 06:00 06/22/16 13:14 Heparin SC 5,000 units Q8 [facility]STIANA Administration Vancomycin HCl 150 mls @ 150 mls/hr 06/20/16 01:15 06/22/16 01:02 Vancocin 750mg/D5w 150 Ml IVPB 06/25/16 01:16 150 mls/hr Q24H [facility]IA[facility] Administration Dopamine HCl/Dextrose 400 mg in 250 mls @ 3.467 mls/hr 06/21/16 09:27 13:36 Dopamine 400mg/250ml D5w IV 2.59 mcg/kg/min .Q24H PRN 4.5 mls/hr TITRATE PER MD ORDER Titration Protocol 2 MCG/KG/MIN Dextrose/Sodium Chloride 1,000 mls @ 75 mls/hr 06/22/16 08:49 06/22/16 09:10 Dextrose 5%/0.45% Ns 1000 Ml IV 75 mls/hr .[id number] [facility]STIA[facility] Administration Piperacillin Sod/Tazobactam Sod 3.375 gm in 50 mls @ 100 mls/hr 06/22/16 13: 00 06/22/16 13:16 Zosyn 3.375 Gm Iv Premix IVPB 100 mls/hr Q6H [facility] Administration Pantoprazole Sodium 40 mg 06/20/16 10:00 06/22/16 09:07 Protonix Inj IVP 40 mg DAILY [facility]IA[facility] Administration - Patient Studies Lab Studies: Microbiology Studies 06/20/16 01:26 MRSA Culture (Admit) - Final Naris MRSA NOT DETECTED Lab Studies 06/22/16 06/22/16 Range/Units 06:15 06:15 WBC 6.0 (4.8-10.8) K/uL RBC 3.62 L (4.40-5.90) Mil/uL Hgb 8.3 L (12.0-18.0) g/dL Hct 26.6 L (35.0-51.0) % MCV 73.4 L (80.0-94.0) fL MCH 23.0 L (27.0-31.0) pg MCHC 31.3 L (33.0-37.0) g/dL RDW 18.3 H (11.5-14.5) % Plt Count 185 (130-400) K/uL MPV 7.7 (7.2-11.7) fL Neut % (Auto) 81.9 H (50.0-75.0) % Lymph % (Auto) 7.1 L (20.0-40.0) % Robertson % (Auto) 9.3 (0.0-10.0) % Eos % (Auto) 1.1 (0.0-4.0) % Baso % (Auto) 0.6 (0.0-2.0) % Neut # 4.9 (1.8-7.0) K/uL Lymph # 0.4 L (1.0-4.3) K/uL Robertson # 0.6 (0.0-0.8) K/uL Eos # 0.1 (0.0-0.7) K/uL Baso # 0.0 (0.0-0.2) K/uL Neutrophils % (Manual) 73 (50-75) % Band Neutrophils % 2 (0-2) % Lymphocytes % (Manual) 11 L (20-40) % Reactive Lymphs % 1 H (0-0) % Monocytes % (Manual) 11 H (0-10) % Eosinophils % (Manual) 2 (0-4) % Nucleated RBC % 2 H (0-0) % Platelet Estimate Normal (NORMAL) Poikilocytosis (manual Slight Anisocytosis (manual) Slight Target Cells Slight [place] Cells Moderate Sodium 150 H (132-148) mmol/L Potassium 3.7 (3.6-5.2) mmol/L Chloride 117 H (98-107) mmol/L Carbon Dioxide 21 L (22-30) mmol/L Anion Gap 16 (10-20) BUN 25 H (9-20) mg/dL Creatinine 1.2 (0.8-1.5) MG/DL Est GFR ( Amer) > 60 Est GFR (Non-Af Amer) 57 Random Glucose 78 (75-110) mg/dL Calcium 7.1 L (8.6-10.4) mg/dl Phosphorus 2.3 L (2.5-4.5) mg/dL Magnesium 2.4 H (1.6-2.3) mg/dL Total Bilirubin 0.9 (0.2-1.3) mg/dL AST 36 (17-59) U/L ALT 13 L (21-72) U/L Alkaline Phosphatase 76 (38-126) U/L Total Protein 6.3 (6.3-8.3) g/dL Albumin 2.6 L (3.5-5.0) g/dL Globulin 3.7 (2.2-3.9) gm/dL Albumin/Globulin Ratio 0.7 L (1.0-2.1) Laboratory Results - last 24 hr 06/22/16 06/22/16 06:15 06:15 WBC 6.0 RBC 3.62 L Hgb 8.3 L Hct 26.6 L MCV 73.4 L MCH 23.0 L MCHC 31.3 L RDW 18.3 H Plt Count 185 MPV 7.7 Neut % (Auto) 81.9 H Lymph % (Auto) 7.1 L Robertson % (Auto) 9.3 Eos % (Auto) 1.1 Baso % (Auto) 0.6 Neut # 4.9 Lymph # 0.4 L Robertson # 0.6 Eos # 0.1 Baso # 0.0 Neutrophils % (Manual) 73 Band Neutrophils % 2 Lymphocytes % (Manual) 11 L Reactive Lymphs % 1 H Monocytes % (Manual) 11 H Eosinophils % (Manual) 2 Nucleated RBC % 2 H Platelet Estimate Normal Poikilocytosis (manual Slight Anisocytosis (manual) Slight Target Cells Slight [place] Cells Moderate Sodium 150 H Potassium 3.7 Chloride 117 H Carbon Dioxide 21 L Anion Gap 16 BUN 25 H Creatinine 1.2 Est GFR ( Amer) > 60 Est GFR (Non-Af Amer) 57 Random Glucose 78 Calcium 7.1 L Phosphorus 2.3 L Magnesium 2.4 H Total Bilirubin 0.9 AST 36 ALT 13 L Alkaline Phosphatase 76 Total Protein 6.3 Albumin 2.6 L Globulin 3.7 Albumin/Globulin Ratio 0.7 L Attending/Attestation - Attestation I have personally seen and examined this patient.: Yes I have fully participated in the care of the patient.: Yes I have reviewed all pertinent clinical information: Yes Notes (Text): 06/22/16 18:11 Patient seen and examined in am. Mental status at bedside, agitated. Dependant on dopamine low dose to maintain his BP 90's. Called son multiple times to speak to him and no answer back, need to set goal of care, feeding, continuation of pressors... Replete electrolytes, vancomycin through in am.
[2016-06-22 08:27] LABS: EOSINOPHIL 2 % (0-4); NEUTROPHIL 73 % (50-75); NUCLEATED RED BLOOD CELL 2 % (0-0); REACTIVE LYMPHOCYTES 1 % (0-0); TOTAL CELLS COUNTED 100
[2016-06-22] MEDS ORDERED: Potassium Phosphate 30 MMOLE in Sodium Chloride 0.9% 250 ML IV ONE (09:30)
[2016-06-22] MEDS: Piperacill/Tazo 3.375gm in Dex 3.375 GM/50 ML BAG IVPB SCH ×2 (13:16→19:38)
--- NOTE | 2016-06-22 13:20 | CP.PCM.CON ---
History of Present Illness - History of Present Illness History of Present Illness: Palliative consult requested by Pedrito GILBERT Reason: Goals of care discussion Patient is a 89 yo male admitted from [facility] with AMS and poor PO intake noted by his son. Prior to admission patient's son requested that existing Code status being changed from DNR/DNI,DNH to DNR/DNI ( Copy of POLST on chart) CXR on admission was significanrt for pneumonia and empfysema. Further, patient was diagnosed with sespsis and acute kidney injury and treated accordingly. During the hospital stay patient become hypotermic on Bear Gug blanket and hypotensive, on Dopamine IV. Patient's son has requested assistance from Palliative care for goals of care discussion. PMH: GERD, dementia, HTN, arthritis, dementia, legally blind, CVA Soc. Hx: [place] resident Fam Hx: unknown Review of Systems - Review of Systems Systems not reviewed;Unavailable: Acuity of Condition Past Patient History - Infectious Disease Hx of Infectious Diseases: None - Past Medical History & Family History Past Medical History?: Yes - Past Social History Smoking Status: Never Smoked - CARDIAC Hx Hypertension: Yes - PULMONARY Hx Tuberculosis: No - NEUROLOGICAL Hx Seizures: No - HEENT Hx Blind: Yes (left eye) Other/Comment: HARD OF HEARING, right eye blurry vision - RENAL Hx Chronic Kidney Disease: No - ENDOCRINE/METABOLIC Hx Endocrine Disorders: No - HEMATOLOGICAL/ONCOLOGICAL Hx Anemia: Yes - INTEGUMENTARY Hx Dermatological Problems: No - MUSCULOSKELETAL/RHEUMATOLOGICAL Hx Arthritis: Yes (B/L KNEE R>L) - GASTROINTESTINAL Hx Gastroesophageal Reflux: Yes - GENITOURINARY/GYNECOLOGICAL Hx Sexually Transmitted Disorders: No - PSYCHIATRIC Hx Substance Use: No - SURGICAL HISTORY Hx Surgeries: Yes Other/Comment: hx of L nephrectomy - ANESTHESIA Hx Anesthesia: Yes Hx Anesthesia Reactions: No Hx Malignant Hyperthermia: No Meds Allergies/Adverse Reactions: Allergies Allergy/AdvReac Type Severity Reaction Status Date / Time No Known Allergies Allergy Verified 05/10/16 15:34 - Medications Medications: Current Medications Heparin Sodium (Porcine) (Heparin) 5,000 units SC Q8 [facility] Last Admin: 06/22/16 06:30 Dose: 5,000 units Vancomycin HCl (Vancocin 750mg/D5w 150 Ml) 150 mls @ 150 mls/hr IVPB Q24H [facility] Stop: 06/25/16 01:16 Last Admin: 06/22/16 01:02 Dose: 150 mls/hr Dopamine HCl/Dextrose (Dopamine 400mg/250ml D5w) 400 mg in 250 mls @ 3.467 mls/ hr IV .Q24H PRN; Protocol; 2 MCG/KG/MIN PRN Reason: TITRATE PER MD ORDER Last Titration: 06/22/16 12:24 Dose: 3 mcg/kg/min, 5.2 mls/hr Dextrose/Sodium Chloride (Dextrose 5%/0.45% Ns 1000 Ml) 1,000 mls @ 75 mls/hr IV .[id number] [facility]RISTIANA Last Admin: 06/22/16 09:10 Dose: 75 mls/hr Potassium Phosphate 30 mmole/ (Sodium Chloride) 260 mls @ 63 mls/hr IV ONCE ONE Stop: 06/22/16 13:37 Last Admin: 06/22/16 10:44 Dose: 63 mls/hr Piperacillin Sod/Tazobactam Sod (Zosyn 3.375 Gm Iv Premix) 3.375 gm in 50 mls @ 100 mls/hr IVPB Q6H [facility]STIANA Pantoprazole Sodium (Protonix Inj) 40 mg IVP DAILY [facility] Last Admin: 06/22/16 09:07 Dose: 40 mg Physical Exam - Constitutional Appears: Chronically Ill - Head Exam Head Exam: ATRAUMATIC, NORMAL INSPECTION, NORMOCEPHALIC - Eye Exam Eye Exam: Normal appearance, PERRL Pupil Exam: NORMAL ACCOMODATION, PERRL - ENT Exam ENT Exam: Mucous Membranes Dry - Neck Exam Neck exam: Positive for: Normal Inspection - Respiratory Exam Respiratory Exam: Decreased Breath Sounds, Rales, NORMAL BREATHING PATTERN - Cardiovascular Exam Cardiovascular Exam: Bradycardia - GI/Abdominal Exam GI & Abdominal Exam: Hypoactive Bowel Sounds - Rectal Exam Rectal Exam: Deferred - Exam Additional comments: Redd cath - Extremities Exam Extremities exam: Positive for: normal inspection - Back Exam Back exam: NORMAL INSPECTION - Neurological Exam Neurological exam: Motor Sensory Deficit - Psychiatric Exam Psychiatric exam: Flat Affect - Skin Skin Exam: Cyanosis, Pallor Results - Vital Signs Recent Vital Signs: Last Vital Signs Temp 93.4 F L 06/22/16 11:00 Pulse 48 L 06/22/16 12:09 Resp 10 L 06/22/16 12:09 BP 134/63 06/22/16 12:09 Pulse Ox 100 06/22/16 12:09 - Labs Result Diagrams: 06/22/16 06:15 06/22/16 06:15 Labs: Laboratory Results - last 24 hr 06/22/16 06/22/16 06:15 06:15 WBC 6.0 RBC 3.62 L Hgb 8.3 L Hct 26.6 L MCV 73.4 L MCH 23.0 L MCHC 31.3 L RDW 18.3 H Plt Count 185 MPV 7.7 Neut % (Auto) 81.9 H Lymph % (Auto) 7.1 L [place] % (Auto) 9.3 Eos % (Auto) 1.1 Baso % (Auto) 0.6 Neut # 4.9 Lymph # 0.4 L [place] # 0.6 Eos # 0.1 Baso # 0.0 Neutrophils % (Manual) 73 Band Neutrophils % 2 Lymphocytes % (Manual) 11 L Reactive Lymphs % 1 H Monocytes % (Manual) 11 H Eosinophils % (Manual) 2 Nucleated RBC % 2 H Platelet Estimate Normal Poikilocytosis (manual Slight Anisocytosis (manual) Slight Target Cells Slight Sofi Cells Moderate Sodium 150 H Potassium 3.7 Chloride 117 H Carbon Dioxide 21 L Anion Gap 16 BUN 25 H Creatinine 1.2 Est GFR ( Amer) > 60 Est GFR (Non-Af Amer) 57 Random Glucose 78 Calcium 7.1 L Phosphorus 2.3 L Magnesium 2.4 H Total Bilirubin 0.9 AST 36 ALT 13 L Alkaline Phosphatase 76 Total Protein 6.3 Albumin 2.6 L Globulin 3.7 Albumin/Globulin Ratio 0.7 L Assessment & Plan - Assessment and Plan (Free Text) Assessment: Palliative consult Code status DNR/DNI, copy of POLST on chart. PPS 10%. ROS unobtainable due to condition. I reviewed medical records, all diagnostic studies, examined patient in the bed and discussed goals of care with patient's son Bryan at the Nursing station. Discussion was attended by Doctor Major, resident. ROS obtained from the son. Patient looks emaciated, very weak with AMS. Patient does not fallow simple commends. patient is lethargic. Over night patient become hypothermic and hypotensive, placed on pressors IV and Bear Hug blanket. At the time of admission as documented by Doctor Pena, patient's son Bryan has refused artificial nutrition via PEG or central line or any invasive procedure. I discussed the poor clinical presentation of his father with the son on 2016. Bryan looked very concerned about his father's present condition, but was also thankful that his father had a nice long life. Bryan had many other questions regarding goals of care for his father but could not stay for further discussion due to his obligations. we agreed to meet back again the same day between 2p and 3 p, but he did not come back. This morning the, after the hypotermia and hypotension last night, the ICU was concerned about weather or not the son would want us to use vasopressors to support his father's life. Based on discussion from 06/20/2016, Bryan wanted to have his father naturally if meaningful recovery was not expected. At this time we feel that the quality of life for this patient is not existing and the further discussion of goals of care was needed. After 3 phone calls to the son, I was not ablr to get hold of him. Impression * This is a terminally ill patient who has reached end of his life * patient's quality of life has been significantly destroyed by very complex medical Hx * I feel that in this point we are only prolonging patient' s , no life * * Patient's son Bryan was clear that he would want his father to peacefully if meaningful recovery was not expected * Hypotermia and hypotension on Vasopressors * We were not able to get in touch with patient's son Bryan today to discuss use of vasopressors, as it unnecessary prolongs patient's life Suggestion * This patient should be allowed natural with use of vasopressors * Will continue trying to get in touch with the son for further goals of care discussion * Agree with DNR/DNI Thank you for including me in care of this patient
--- NOTE | 2016-06-22 18:34 | CARD ---
APPROVED REPORT EKG Measurement Heart [id number] <Conclusion> Sinus bradycardia SCOOPING OF ST SEGMENT, CONSIDER DIG TOXICITY
--- NOTE | 2016-06-22 23:46 | PN ---
DATE: 06/22/2016 SUBJECTIVE: The patient is refusing to eat. PHYSICAL EXAMINATION: VITAL SIGNS: His blood pressure is 111/82, temperature 97.4, respiratory rate 12, pulse 70. HEENT: Slightly pale mucosa of the conjunctivae. NECK: Supple, no JVD, no carotid bruit, no lymph node, no thyromegaly. CHEST AND LUNGS: Bilateral symmetrical expansion, good air exchange, no rales, no rhonchi. CARDIOVASCULAR: PMI not localized. S1, S2. No additional sounds. ABDOMEN: Normoactive bowel sounds, no tenderness, no organomegaly, no masses. EXTREMITIES: No cyanosis, no clubbing, no edema. CENTRAL NERVOUS SYSTEM: The patient is awake, but confused, and moves all extremities. ASSESSMENT: Sepsis, pneumonia, dementia. PLAN: Continue current IV antibiotics and current management. To be discussed with son regarding vasopressors. . Continue current IV antibiotics for now. [facility] Primo Kelley MD cc: 167 TT: 06/22/2016 23:45:45 Confirmation # [id number] Dictation # [id number] kimberly EDWARDS
[2016-06-23] MEDS: Dextrose 5%/0.45% NS 1,000 ML IV SCH ×2 (00:22→19:16)
[2016-06-23] MEDS: Vancomycin 750mg/D5W 150 ml 150 ML IVPB SCH ×2 (00:23→01:21)
[2016-06-23] MEDS: Piperacill/Tazo 3.375gm in Dex 3.375 GM/50 ML BAG IVPB SCH ×4 (00:23→19:17)
[2016-06-23 05:05] LABS: BASO # 0.1 K/uL (0.0-0.2); BASO % 1.2 % (0.0-2.0); EOS % 0.9 % (0.0-4.0); HEMATOCRIT 25.4 % (35.0-51.0); LYMPH # 0.7 K/uL (1.0-4.3); LYMPH % 15.8 % (20.0-40.0); MEAN CORPUSCULAR HEMOGLOBIN 22.3 pg (27.0-31.0); MEAN CORPUSCULAR HGB CONC 31.4 g/dL (33.0-37.0); MEAN PLATELET VOLUME 8.1 fL (7.2-11.7); MONO # 0.3 K/uL (0.0-0.8); MONO % 7.4 % (0.0-10.0); NRBC % 1.5 % (0.0-2.0); RED CELL DISTRIBUTION WIDTH 18.1 % (11.5-14.5); WHITE BLOOD COUNT 4.3 K/uL (4.8-10.8)
[2016-06-23 05:19] LABS: CHLORIDE 114 mmol/L (98-107); SODIUM 147 mmol/L (132-148)
[2016-06-23 05:20] LABS: POTASSIUM 3.4 mmol/L (3.6-5.2)
[2016-06-23 05:22] LABS: ALB/GLOB RATIO 0.6 (1.0-2.1); ALKALINE PHOSPHATASE 66 U/L (38-126); ALT/SGPT 18 U/L (21-72); AST/SGOT 30 U/L (17-59); BILIRUBIN,TOTAL 0.7 mg/dL (0.2-1.3); BLOOD UREA NITROGEN 18 mg/dL (9-20); CALCIUM 6.8 mg/dl (8.6-10.4); CARBON DIOXIDE 23 mmol/L (22-30); GFR AFRICAN-AMERICAN > 60; GLUCOSE,RANDOM 68 mg/dL (75-110); PHOSPHOROUS 3.1 mg/dL (2.5-4.5); TOTAL PROTEIN 5.8 g/dL (6.3-8.3)
[2016-06-23 05:23] LABS: MAGNESIUM 2.1 mg/dL (1.6-2.3)
--- NOTE | 2016-06-23 07:17 | CP.CCUPN ---
<Moe Major - Last Filed: 06/23/16 10:28> CCU Subjective - Physician Review Subjective (Free Text): 06/23/16 1028 Pt seen and examined at bedside. Pt more alert this AM. He is oriented only to person, but is communicating. He is asking for tea. Will do bedside swallow eval this AM. He is not c/o any pain at this time. ROS unobtainable due to patient clinical status. Critical Care Time Spent (in minutes): 40 CCU Objective - Vital Signs / Intake & Output Vital Signs (Last 4 hours): Vital Signs Temp Pulse Resp BP 06/23/16 06:09 52 L 13 103/46 L 06/23/16 06:00 60 11 L 06/23/16 05:18 62 11 L 107/50 L 06/23/16 05:00 73 13 06/23/16 04:08 54 L 10 L 107/57 L 06/23/16 04:00 97 F L 59 L 11 L Intake and Output (Last 8hrs): Intake & Output 06/22/16 06/23/16 06/23/16 22:59 06:59 14:59 Intake Total 1722 682.5 Output Total 400 Balance 1322 682.5 Weight 110 lb Intake: IV 1000 67.5 Intake, IV Amount 722 615 Left Hand 82 Left Proximal Port Wrist 40 40 Left Wrist 600 575 Output: Urine 400 Urine, Voided 400 Other: # Bowel Movements 2 2 - Physical Exam Head: Positive for: Atraumatic, Normocephalic Pupils: Positive for: PERRL Extroacular Muscles: Positive for: EOMI Conjunctiva: Positive for: Normal Mouth: Positive for: Dry Respiratory/Chest: Positive for: Clear to Auscultation, Good Air Exchange. Negative for: Rales, Retracting, Rhonchi Cardiovascular: Positive for: Normal S1, S2 Abdomen: Positive for: Normal Bowel Sounds Back: Negative for: Decubitus Ulcer Upper Extremity: Positive for: Normal Inspection Lower Extremity: Positive for: Normal Inspection Neurological: Negative for: GCS=15, CN II-XII Intact, Speech Normal Skin: Positive for: Other (meryl flavioer for temperature support) Psychiatric: Negative for: Alert, Oriented x 3, Normal Insight - Medications Active Medications: Active Medications Generic Name Dose Route Start Last Admin Trade Name Freq PRN Reason Stop Dose Admin Heparin Sodium (Porcine) 5,000 units 06/20/16 06:00 06/23/16 06:19 Heparin SC 5,000 units Q8 CHRISTIANA Administration Vancomycin HCl 150 mls @ 150 mls/hr 06/20/16 01:15 06/23/16 01:21 Vancocin 750mg/D5w 150 Ml IVPB 06/25/16 01:16 Not Given Q24H CHRISTIANA Dopamine HCl/Dextrose 400 mg in 250 mls @ 3.467 mls/hr 06/21/16 09:27 05:00 Dopamine 400mg/250ml D5w IV 2.88 mcg/kg/min .Q24H PRN 5 mls/hr TITRATE PER MD ORDER Titration Protocol 2 MCG/KG/MIN Dextrose/Sodium Chloride 1,000 mls @ 75 mls/hr 06/22/16 08:49 06/23/16 00:22 Dextrose 5%/0.45% Ns 1000 Ml IV 75 mls/hr .[id number] CHRISTIANA Administration Piperacillin Sod/Tazobactam Sod 3.375 gm in 50 mls @ 100 mls/hr 06/22/16 13: 00 06/23/16 06:19 Zosyn 3.375 Gm Iv Premix IVPB 100 mls/hr Q6H CHRISTIANA Administration Potassium Chloride 20 meq in 100 mls @ 50 mls/hr 06/23/16 06:41 06/23/16 07: 00 Potassium Chloride 20 Meq/100 Ml IVPB 06/23/16 08:40 50 mls/hr ONCE ONE Administration Pantoprazole Sodium 40 mg 06/20/16 10:00 06/22/16 09:07 Protonix Inj IVP 40 mg DAILY CHRISTIANA Administration - Patient Studies Lab Studies: Lab Studies 06/23/16 06/23/16 06/23/16 Range/Units 04:52 04:52 04:52 WBC 4.3 L (4.8-10.8) K/uL RBC 3.58 L (4.40-5.90) Mil/uL Hgb 8.0 L (12.0-18.0) g/dL Hct 25.4 L (35.0-51.0) % MCV 71.0 L D (80.0-94.0) fL MCH 22.3 L (27.0-31.0) pg MCHC 31.4 L (33.0-37.0) g/dL RDW 18.1 H (11.5-14.5) % Plt Count 165 (130-400) K/uL MPV 8.1 (7.2-11.7) fL Neut % (Auto) 74.7 (50.0-75.0) % Lymph % (Auto) 15.8 L (20.0-40.0) % [place] % (Auto) 7.4 (0.0-10.0) % Eos % (Auto) 0.9 (0.0-4.0) % Baso % (Auto) 1.2 (0.0-2.0) % Neut # 3.2 (1.8-7.0) K/uL Lymph # 0.7 L (1.0-4.3) K/uL [place] # 0.3 (0.0-0.8) K/uL Eos # 0.0 (0.0-0.7) K/uL Baso # 0.1 (0.0-0.2) K/uL Neutrophils % (Manual) (50-75) % Band Neutrophils % (0-2) % Lymphocytes % (Manual) (20-40) % Reactive Lymphs % (0-0) % Monocytes % (Manual) (0-10) % Eosinophils % (Manual) (0-4) % Nucleated RBC % (0-0) % Platelet Estimate (NORMAL) Poikilocytosis (manual Anisocytosis (manual) Target Cells Sofi Cells Sodium 147 (132-148) mmol/L Potassium 3.4 L (3.6-5.2) mmol/L Chloride 114 H (98-107) mmol/L Carbon Dioxide 23 (22-30) mmol/L Anion Gap 13 (10-20) BUN 18 (9-20) mg/dL Creatinine 1.2 (0.8-1.5) MG/DL Est GFR ( Amer) > 60 Est GFR (Non-Af Amer) 57 Random Glucose 68 L (75-110) mg/dL Calcium 6.8 L (8.6-10.4) mg/dl Phosphorus 3.1 (2.5-4.5) mg/dL Magnesium 2.1 (1.6-2.3) mg/dL Total Bilirubin 0.7 (0.2-1.3) mg/dL AST 30 (17-59) U/L ALT 18 L D (21-72) U/L Alkaline Phosphatase 66 (38-126) U/L Total Protein 5.8 L (6.3-8.3) g/dL Albumin 2.3 L (3.5-5.0) g/dL Globulin 3.5 (2.2-3.9) gm/dL Albumin/Globulin Ratio 0.6 L (1.0-2.1) Vancomycin Trough (5.0-10.0) ug/mL Random Vancomycin 16.47 ug/mL 06/22/16 06/22/16 Range/Units 23:58 06:15 WBC (4.8-10.8) K/uL RBC (4.40-5.90) Mil/uL Hgb (12.0-18.0) g/dL Hct (35.0-51.0) % MCV (80.0-94.0) fL MCH (27.0-31.0) pg MCHC (33.0-37.0) g/dL RDW (11.5-14.5) % Plt Count (130-400) K/uL MPV (7.2-11.7) fL Neut % (Auto) (50.0-75.0) % Lymph % (Auto) (20.0-40.0) % [place] % (Auto) (0.0-10.0) % Eos % (Auto) (0.0-4.0) % Baso % (Auto) (0.0-2.0) % Neut # (1.8-7.0) K/uL Lymph # (1.0-4.3) K/uL [place] # (0.0-0.8) K/uL Eos # (0.0-0.7) K/uL Baso # (0.0-0.2) K/uL Neutrophils % (Manual) 73 (50-75) % Band Neutrophils % 2 (0-2) % Lymphocytes % (Manual) 11 L (20-40) % Reactive Lymphs % 1 H (0-0) % Monocytes % (Manual) 11 H (0-10) % Eosinophils % (Manual) 2 (0-4) % Nucleated RBC % 2 H (0-0) % Platelet Estimate Normal (NORMAL) Poikilocytosis (manual Slight Anisocytosis (manual) Slight Target Cells Slight Sofi Cells Moderate Sodium (132-148) mmol/L Potassium (3.6-5.2) mmol/L Chloride (98-107) mmol/L Carbon Dioxide (22-30) mmol/L Anion Gap (10-20) BUN (9-20) mg/dL Creatinine (0.8-1.5) MG/DL Est GFR ( Amer) Est GFR (Non-Af Amer) Random Glucose (75-110) mg/dL Calcium (8.6-10.4) mg/dl Phosphorus (2.5-4.5) mg/dL Magnesium (1.6-2.3) mg/dL Total Bilirubin (0.2-1.3) mg/dL AST (17-59) U/L ALT (21-72) U/L Alkaline Phosphatase (38-126) U/L Total Protein (6.3-8.3) g/dL Albumin (3.5-5.0) g/dL Globulin (2.2-3.9) gm/dL Albumin/Globulin Ratio (1.0-2.1) Vancomycin Trough 18.8 H (5.0-10.0) ug/mL Random Vancomycin ug/mL Laboratory Results - last 24 hr 06/22/16 06/22/16 06/23/16 06:15 23:58 04:52 WBC 4.3 L RBC 3.58 L Hgb 8.0 L Hct 25.4 L MCV 71.0 L D MCH 22.3 L MCHC 31.4 L RDW 18.1 H Plt Count 165 MPV 8.1 Neut % (Auto) 74.7 Lymph % (Auto) 15.8 L [place] % (Auto) 7.4 Eos % (Auto) 0.9 Baso % (Auto) 1.2 Neut # 3.2 Lymph # 0.7 L [place] # 0.3 Eos # 0.0 Baso # 0.1 Neutrophils % (Manual) 73 Band Neutrophils % 2 Lymphocytes % (Manual) 11 L Reactive Lymphs % 1 H Monocytes % (Manual) 11 H Eosinophils % (Manual) 2 Nucleated RBC % 2 H Platelet Estimate Normal Poikilocytosis (manual Slight Anisocytosis (manual) Slight Target Cells Slight Sofi Cells Moderate Sodium Potassium Chloride Carbon Dioxide Anion Gap BUN Creatinine Est GFR ( Amer) Est GFR (Non-Af Amer) Random Glucose Calcium Phosphorus Magnesium Total Bilirubin AST ALT Alkaline Phosphatase Total Protein Albumin Globulin Albumin/Globulin Ratio Vancomycin Trough 18.8 H Random Vancomycin 06/23/16 06/23/16 04:52 04:52 WBC RBC Hgb Hct MCV MCH MCHC RDW Plt Count MPV Neut % (Auto) Lymph % (Auto) [place] % (Auto) Eos % (Auto) Baso % (Auto) Neut # Lymph # [place] # Eos # Baso # Neutrophils % (Manual) Band Neutrophils % Lymphocytes % (Manual) Reactive Lymphs % Monocytes % (Manual) Eosinophils % (Manual) Nucleated RBC % Platelet Estimate Poikilocytosis (manual Anisocytosis (manual) Target Cells Sofi Cells Sodium 147 Potassium 3.4 L Chloride 114 H Carbon Dioxide 23 Anion Gap 13 BUN 18 Creatinine 1.2 Est GFR ( Amer) > 60 Est GFR (Non-Af Amer) 57 Random Glucose 68 L Calcium 6.8 L Phosphorus 3.1 Magnesium 2.1 Total Bilirubin 0.7 AST 30 ALT 18 L D Alkaline Phosphatase 66 Total Protein 5.8 L Albumin 2.3 L Globulin 3.5 Albumin/Globulin Ratio 0.6 L Vancomycin Trough Random Vancomycin 16.47 Fingerstick Blood Sugar Results: 112 Review of Systems - Review of Systems Systems not reviewed;Unavailable: Altered Mental Status Review of Systems: Pt denies pain in general, but not responding to other questions - Constitutional Constitutional: Other (denies pain; does not answer other questions) Assessment/Plan - Assessment and Plan (Free Text) Assessment: Pt is an 89 year old male, with PMHx of GERD, arthritis, anemia, HTN, and dementia. Pt septic, severely dehydrated on arrival to ED. Treated with Zosyn and IVF supplementation. Unknown source of sepsis. Plan: Pt STATUS: ADMITTED to ICU, DNR/DNI NEURO: AMS - pt demented at baseline - last time AAOx3 was 'month ago' before stroke - CT Head (05/10/2016): Hypodense area (1.8x1.7cm) in left frontal white matter could represent early ischemic injury - MRI (05/11/2016): No mass effect or edema. Chronic microvascular changes are seen. 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 No acute intracranial findings. (see full report) Hypothermia - Resolved - Meryl hugger remains CV: Hypotension - One pressor (one is limit per POA): Levophed changed to Dopamine this AM - Dopamine Drip GI: Pt asking for food - failed bedside swallow eval PULM: O2 saturation: CXR (06/19/16): Hyperinflation suggestive for COPD/emphysematous changes. Increased markings in medial left lower lung zone which may represent focal consolidation vs atelectasis vs infiltrate. More consolidative changes in the left midlung zone. (see full report) /Renal: Hypernatremia - believed secondary to dehydration - resolved, 147 on AM labs, downtrending from 150 yesterday - D5/0.5 NS @ 150cc/hr Hypophosphatemia - 3.1 on AM labs - Monitor on AM labs ENDO: No DM on pt chart - hypoglycemic episode (06/21/16) B - D5/0.5 NS @ 75 cc/hr ID: SIRS Criteria: WBC WNL (8.4) but uptrending with left shift, Temp (<96.8), No tachycardia - CXR (06/19/16): Hyperinflation suggestive for COPD/emphysematous changes. Increased markings in medial left lower lung zone which may represent focal consolidation vs atelectasis vs infiltrate. More consolidative changes in the left midlung zone. (see full report) - Zosyn 2.25gm IV Q6H (Discontinued), Increased to 3.375gm IV Q6H (Started 06/22) - Vancomycin 750mg IV Daily (Started 06/20) - Vanc level random: 16.47, Trough: 18.8 - Procalcitonin (06/21) 0.05, Lactate 1.4 on ABG - Blood Cx (06/19/16): No growth for 72 hours x 2 - MRSA Cx (06/20/16: MRSA not detected - UA (06/19/16): LE and nitrate negative, rest WNL Prophylaxis Heparin 5000 units SC Q8 Protonix 40mg IV Daily SCDs <Kanwal Nicole - Last Filed: 06/23/16 14:29> CCU Objective - Vital Signs / Intake & Output Intake and Output (Last 8hrs): Intake & Output 06/22/16 06/23/16 06/23/16 22:59 06:59 14:59 Intake Total 1722 682.5 55 Output Total 400 Balance 1322 682.5 55 Weight 110 lb Intake: IV 1000 67.5 Intake, IV Amount 722 615 55 Left Hand 82 Left Proximal Port Wrist 40 40 5 Left Wrist 600 575 50 Output: Urine 400 Urine, Voided 400 Other: # Bowel Movements 2 2 - Medications Active Medications: Active Medications Generic Name Dose Route Start Last Admin Trade Name Freq PRN Reason Stop Dose Admin Heparin Sodium (Porcine) 5,000 units 06/20/16 06:00 06/23/16 06:19 Heparin SC 5,000 units Q8 CHRISTIANA Administration Vancomycin HCl 150 mls @ 150 mls/hr 06/20/16 01:15 06/23/16 01:21 Vancocin 750mg/D5w 150 Ml IVPB 06/25/16 01:16 Not Given Q24H CHRISTIANA Dopamine HCl/Dextrose 400 mg in 250 mls @ 3.467 mls/hr 06/21/16 09:27 05:00 Dopamine 400mg/250ml D5w IV 2.88 mcg/kg/min .Q24H PRN 5 mls/hr TITRATE PER MD ORDER Titration Protocol 2 MCG/KG/MIN Dextrose/Sodium Chloride 1,000 mls @ 75 mls/hr 06/22/16 08:49 06/23/16 00:22 Dextrose 5%/0.45% Ns 1000 Ml IV 75 mls/hr .[id number] CHRISTIANA Administration Piperacillin Sod/Tazobactam Sod 3.375 gm in 50 mls @ 100 mls/hr 06/22/16 13: 00 06/23/16 06:19 Zosyn 3.375 Gm Iv Premix IVPB 100 mls/hr Q6H CHRISTIANA Administration Pantoprazole Sodium 40 mg 06/20/16 10:00 06/22/16 09:07 Protonix Inj IVP 40 mg DAILY CHRISTIANA Administration - Patient Studies Lab Studies: Lab Studies 06/23/16 06/23/16 06/23/16 Range/Units 04:52 04:52 04:52 WBC 4.3 L (4.8-10.8) K/uL RBC 3.58 L (4.40-5.90) Mil/uL Hgb 8.0 L (12.0-18.0) g/dL Hct 25.4 L (35.0-51.0) % MCV 71.0 L D (80.0-94.0) fL MCH 22.3 L (27.0-31.0) pg MCHC 31.4 L (33.0-37.0) g/dL RDW 18.1 H (11.5-14.5) % Plt Count 165 (130-400) K/uL MPV 8.1 (7.2-11.7) fL Neut % (Auto) 74.7 (50.0-75.0) % Lymph % (Auto) 15.8 L (20.0-40.0) % [place] % (Auto) 7.4 (0.0-10.0) % Eos % (Auto) 0.9 (0.0-4.0) % Baso % (Auto) 1.2 (0.0-2.0) % Neut # 3.2 (1.8-7.0) K/uL Lymph # 0.7 L (1.0-4.3) K/uL [place] # 0.3 (0.0-0.8) K/uL Eos # 0.0 (0.0-0.7) K/uL Baso # 0.1 (0.0-0.2) K/uL Sodium 147 (132-148) mmol/L Potassium 3.4 L (3.6-5.2) mmol/L Chloride 114 H (98-107) mmol/L Carbon Dioxide 23 (22-30) mmol/L Anion Gap 13 (10-20) BUN 18 (9-20) mg/dL Creatinine 1.2 (0.8-1.5) MG/DL Est GFR ( Amer) > 60 Est GFR (Non-Af Amer) 57 Random Glucose 68 L (75-110) mg/dL Calcium 6.8 L (8.6-10.4) mg/dl Phosphorus 3.1 (2.5-4.5) mg/dL Magnesium 2.1 (1.6-2.3) mg/dL Total Bilirubin 0.7 (0.2-1.3) mg/dL AST 30 (17-59) U/L ALT 18 L D (21-72) U/L Alkaline Phosphatase 66 (38-126) U/L Total Protein 5.8 L (6.3-8.3) g/dL Albumin 2.3 L (3.5-5.0) g/dL Globulin 3.5 (2.2-3.9) gm/dL Albumin/Globulin Ratio 0.6 L (1.0-2.1) Vancomycin Trough (5.0-10.0) ug/mL Random Vancomycin 16.47 ug/mL 06/22/16 Range/Units 23:58 WBC (4.8-10.8) K/uL RBC (4.40-5.90) Mil/uL Hgb (12.0-18.0) g/dL Hct (35.0-51.0) % MCV (80.0-94.0) fL MCH (27.0-31.0) pg MCHC (33.0-37.0) g/dL RDW (11.5-14.5) % Plt Count (130-400) K/uL MPV (7.2-11.7) fL Neut % (Auto) (50.0-75.0) % Lymph % (Auto) (20.0-40.0) % [place] % (Auto) (0.0-10.0) % Eos % (Auto) (0.0-4.0) % Baso % (Auto) (0.0-2.0) % Neut # (1.8-7.0) K/uL Lymph # (1.0-4.3) K/uL [place] # (0.0-0.8) K/uL Eos # (0.0-0.7) K/uL Baso # (0.0-0.2) K/uL Sodium (132-148) mmol/L Potassium (3.6-5.2) mmol/L Chloride (98-107) mmol/L Carbon Dioxide (22-30) mmol/L Anion Gap (10-20) BUN (9-20) mg/dL Creatinine (0.8-1.5) MG/DL Est GFR ( Amer) Est GFR (Non-Af Amer) Random Glucose (75-110) mg/dL Calcium (8.6-10.4) mg/dl Phosphorus (2.5-4.5) mg/dL Magnesium (1.6-2.3) mg/dL Total Bilirubin (0.2-1.3) mg/dL AST (17-59) U/L ALT (21-72) U/L Alkaline Phosphatase (38-126) U/L Total Protein (6.3-8.3) g/dL Albumin (3.5-5.0) g/dL Globulin (2.2-3.9) gm/dL Albumin/Globulin Ratio (1.0-2.1) Vancomycin Trough 18.8 H (5.0-10.0) ug/mL Random Vancomycin ug/mL Laboratory Results - last 24 hr 06/22/16 06/23/16 06/23/16 23:58 04:52 04:52 WBC 4.3 L RBC 3.58 L Hgb 8.0 L Hct 25.4 L MCV 71.0 L D MCH 22.3 L MCHC 31.4 L RDW 18.1 H Plt Count 165 MPV 8.1 Neut % (Auto) 74.7 Lymph % (Auto) 15.8 L [place] % (Auto) 7.4 Eos % (Auto) 0.9 Baso % (Auto) 1.2 Neut # 3.2 Lymph # 0.7 L [place] # 0.3 Eos # 0.0 Baso # 0.1 Sodium 147 Potassium 3.4 L Chloride 114 H Carbon Dioxide 23 Anion Gap 13 BUN 18 Creatinine 1.2 Est GFR ( Amer) > 60 Est GFR (Non-Af Amer) 57 Random Glucose 68 L Calcium 6.8 L Phosphorus 3.1 Magnesium 2.1 Total Bilirubin 0.7 AST 30 ALT 18 L D Alkaline Phosphatase 66 Total Protein 5.8 L Albumin 2.3 L Globulin 3.5 Albumin/Globulin Ratio 0.6 L Vancomycin Trough 18.8 H Random Vancomycin 06/23/16 04:52 WBC RBC Hgb Hct MCV MCH MCHC RDW Plt Count MPV Neut % (Auto) Lymph % (Auto) [place] % (Auto) Eos % (Auto) Baso % (Auto) Neut # Lymph # [place] # Eos # Baso # Sodium Potassium Chloride Carbon Dioxide Anion Gap BUN Creatinine Est GFR ( Amer) Est GFR (Non-Af Amer) Random Glucose Calcium Phosphorus Magnesium Total Bilirubin AST ALT Alkaline Phosphatase Total Protein Albumin Globulin Albumin/Globulin Ratio Vancomycin Trough Random Vancomycin 16.47 Attending/Attestation - Attestation I have personally seen and examined this patient.: Yes I have fully participated in the care of the patient.: Yes I have reviewed all pertinent clinical information: Yes Notes (Text): 06/23/16 14:28 Patient stable, but still dependant on pressors, failed swallow evaluation. Unable to contact the son, left message with son's to come to the hospital or call. Need to discuss further care, patient is appropriate for palliative care.
[2016-06-23] MEDS ORDERED: Dextrose 50% SYRINGE Inj (50 ml) IV STA (07:31)
--- NOTE | 2016-06-23 23:57 | PN ---
DATE: 06/23/2016 SUBJECTIVE: The patient is seen today, 06/23/2016. He is more awake and alert and appropriate and he is off vasopressors and blood pressure is being maintained. PHYSICAL EXAMINATION: VITAL SIGNS: Blood pressure 111/62, temperature 98.4, respiratory rate 12, pulse was 50. NECK: Supple, no JVD, no carotid bruit, no lymph node, no thyromegaly. CHEST AND LUNGS: Bilateral symmetrical expansion, good air exchange, no rales, no rhonchi. CARDIOVASCULAR: PMI not localized. S1, S2. No additional sounds. ABDOMEN: Normoactive bowel sounds, no tenderness, no organomegaly, no masses. EXTREMITIES: No cyanosis, no clubbing, no edema. CENTRAL NERVOUS SYSTEM: The patient is awake, but he is confused and disoriented to person, place an d time. ASSESSMENT: 1. Sepsis. 2. -related pneumonia. 3. Hypertension. 4. Degenerative spine disease. PLAN: Continue current antibiotics and IV fluid and, as per son, he wants comforting care, but tamia nue with the antibiotics. The patient was started also . Nigel Kelley MD cc: 167 TT: 06/23/2016 23:56:56 Confirmation # [id number] Dictation # [id number]
[2016-06-24] MEDS: Piperacill/Tazo 3.375gm in Dex 3.375 GM/50 ML BAG IVPB SCH ×4 (00:08→18:06)
[2016-06-24] MEDS: Vancomycin 750mg/D5W 150 ml 150 ML IVPB SCH (00:16)
[2016-06-24] MEDS: Dextrose 5%/0.45% NS 1,000 ML IV SCH ×2 (01:30→15:12)
[2016-06-25] MEDS: Piperacill/Tazo 3.375gm in Dex 3.375 GM/50 ML BAG IVPB SCH ×4 (00:02→18:04)
[2016-06-25] MEDS: Vancomycin 750mg/D5W 150 ml 150 ML IVPB SCH (00:35)
[2016-06-25] MEDS: Dextrose 5%/0.45% NS 1,000 ML IV SCH (03:46)
[2016-06-26] MEDS: Piperacill/Tazo 3.375gm in Dex 3.375 GM/50 ML BAG IVPB SCH ×4 (02:06→19:52)
--- NOTE | 2016-06-26 07:05 | PN ---
DATE: 06/24/2016 SUBJECTIVE: He is off vasopressors and the patient is able to tolerate pureed diet. PHYSICAL EXAMINATION: VITAL SIGNS: Blood pressure is 125/70, respiratory rate of 16. NECK: Supple, no JVD, no carotid bruit, no lymph node, no thyromegaly. CHEST AND LUNGS: Bilateral symmetrical expansion, good air exchange, no rales, no rhonchi. CARDIOVASCULAR: PMI not localized. S1, S2. No additional sounds. ABDOMEN: Normoactive bowel sounds, no tenderness, no organomegaly, no masses. EXTREMITIES: No cyanosis, no clubbing, no edema. NEUROLOGIC: Alert, awake. CENTRAL NERVOUS SYSTEM: The patient is confused and wake and follows commands , and moves all extremities equally. ASSESSMENT: 1. Sepsis. 2. Pneumonia. . PLAN: Continue current medications, antibiotics and IV fluid. and comforting measures. [facility] Primo Kelley MD cc: 167 TT: 06/25/2016 00:16:13 Confirmation # [id number] Dictation # [id number] radha EDWARDS
--- NOTE | 2016-06-26 20:11 | PN ---
DATE: 06/26/2016 SUBJECTIVE: The patient is seen today, 06/26/2016. He is awake and has very poor oral intake. The pa alda's son refused any feeding other than natural way. PHYSICAL EXAMINATION: VITAL SIGNS: Blood pressure is 124/67, temperature 97.4, respiratory rate 18, and pulse 55. NECK: Supple, no JVD, no carotid bruit, no lymph node, no thyromegaly. CHEST AND LUNGS: Bilateral symmetrical expansion, good air exchange, no rales, no rhonchi. CARDIOVASCULAR: PMI not localized. S1, S2. No additional sounds. ABDOMEN: Normoactive bowel sounds, no tenderness, no organomegaly, no masses. EXTREMITIES: No cyanosis, no clubbing, no edema. CENTRAL NERVOUS SYSTEM: The patient is awake but he is confused and he is poorly following commands. ASSESSMENT: 1. Sepsis. 2. Healthcare related pneumonia. 3. History of hypertension. 4. History of cancer of prostate. 5. Dementia. PLAN: Continue current antibiotics and continue comforting care and will discuss with the family reg [facility] hospice referral. Nigel Kelley MD cc: 167 TT: 06/26/2016 20:11:01 Confirmation # [id number] Dictation # [id number] janet
[2016-06-27] MEDS: Piperacill/Tazo 3.375gm in Dex 3.375 GM/50 ML BAG IVPB SCH ×4 (01:08→18:26)
[2016-06-28] MEDS: Piperacill/Tazo 3.375gm in Dex 3.375 GM/50 ML BAG IVPB SCH ×4 (00:17→18:12)
--- NOTE | 2016-06-28 15:52 | CP.PCM.CON ---
History of Present Illness - History of Present Illness History of Present Illness: Asked by Dr. Kelley for a GI consultation on this patient. 89 year old male with history of HTN, dementia, arthritis, CVA who initially presented to hospital from nursing facility with altered mental status. Patient is currently non-verbal and unable to participate in conversation, therefore additional information obtained via chart review, discussion with nursing staff , and speaking with patient's son Bryan at bedside. During hospitalization, patient was treated for sepsis secondary to pneumonia requiring vasopressor support which has been discontinued. GI called for evaluation of potential gastrostomy tube placement. The patient has apparently been declining over the past several months and has had decreased PO intake over the past few weeks. There is no reported abdominal pain, nausea, vomiting, rectal bleeding, or change in bowel habits. Unknown prior endoscopic history. Social history: Unable to assess Family history: Unable to assess Review of Systems - Review of Systems Systems not reviewed;Unavailable: Dementia, Altered Mental Status Past Patient History - Infectious Disease Hx of Infectious Diseases: None - Past Medical History & Family History Past Medical History?: Yes - Past Social History Smoking Status: Never Smoked - CARDIAC Hx Hypertension: Yes - PULMONARY Hx Tuberculosis: No - NEUROLOGICAL HX Cerebrovascular Accident: Yes - HEENT Hx Blind: Yes (left eye) Other/Comment: HARD OF HEARING, right eye blurry vision - RENAL Hx Chronic Kidney Disease: No - ENDOCRINE/METABOLIC Hx Endocrine Disorders: No - HEMATOLOGICAL/ONCOLOGICAL Hx Anemia: Yes - INTEGUMENTARY Hx Dermatological Problems: No - MUSCULOSKELETAL/RHEUMATOLOGICAL Hx Rheumatoid Arthritis: No - GASTROINTESTINAL Hx Gastroesophageal Reflux: Yes - GENITOURINARY/GYNECOLOGICAL Hx Sexually Transmitted Disorders: No - PSYCHIATRIC Hx Substance Use: No - SURGICAL HISTORY Hx Surgeries: Yes Other/Comment: hx of L nephrectomy - ANESTHESIA Hx Anesthesia: Yes Hx Anesthesia Reactions: No Hx Malignant Hyperthermia: No Meds Allergies/Adverse Reactions: Allergies Allergy/AdvReac Type Severity Reaction Status Date / Time No Known Allergies Allergy Verified 05/10/16 15:34 - Medications Medications: Current Medications Acetaminophen (Tylenol 325mg Tab) 650 mg PO Q6 PRN PRN Reason: Pain, moderate (4-7) Piperacillin Sod/Tazobactam Sod (Zosyn 3.375 Gm Iv Premix) 3.375 gm in 50 mls @ 100 mls/hr IVPB Q6H [facility] Last Admin: 06/28/16 13:37 Dose: 100 mls/hr Physical Exam - Constitutional Appears: Non-toxic, Cachectic, Chronically Ill - Head Exam Head Exam: NORMAL INSPECTION - Eye Exam Eye Exam: Normal appearance, PERRL - ENT Exam ENT Exam: Mucous Membranes Dry - Respiratory Exam Respiratory Exam: Clear to Auscultation Bilateral - Cardiovascular Exam Cardiovascular Exam: REGULAR RHYTHM, +S1, +S2 - GI/Abdominal Exam GI & Abdominal Exam: Normal Bowel Sounds, Soft Additional comments: non tender to palpation in four quadrants no palpable hepato/splenomegaly - Extremities Exam Extremities exam: Positive for: normal inspection - Neurological Exam Additional comments: Patient unable to participate in neurological examination - Psychiatric Exam Additional comments: Unable to assess - Skin Skin Exam: Dry, Intact, Normal Color, Warm Results - Vital Signs Recent Vital Signs: Last Vital Signs Temp 94.4 F L 06/28/16 09:32 Pulse 50 L 06/28/16 09:32 Resp 18 06/28/16 09:32 BP 138/68 06/28/16 09:32 Pulse Ox 98 06/28/16 09:32 - Labs Result Diagrams: 06/23/16 04:52 06/23/16 04:52 Assessment & Plan - Assessment and Plan (Free Text) Assessment: Dementia HTN / CVA Pneumonia, sepsis - patient hypothermic and previously required vasopressor support Malnourishment Plan: - Patient previously was being considered for hospice care, however after detailed discussion with patient's son he wishes to proceed with potential PEG placement - I informed him that given his current septic state with hypothermia he is not currently a candidate for endoscopic intervention. In addition, we discussed that placement of a gastrostomy tube would not provide any additional quality of life given terminal clinical picture and that the risks of the procedure likely outweigh any potential benefits. Nevertheless, the son wishes to proceed with PEG evaluation at this time. - Obtain repeat CBC, CMP, INR - Continue with antibiotic therapy - Consider NGT placement in the meanwhile for enteral nutritional support - Will continue to monitor patient clinical course
--- NOTE | 2016-06-28 21:45 | CP.PCM.CON ---
History of Present Illness - History of Present Illness History of Present Illness: INFECTIOUS DISEASE CONSULT; PATIENT SEEN CHART REVIEWED DISCUSSED WITH STAFF.; CONSULT DICTATED DICTATION NUMBER; # [id number].- SEE REPORTS. Past Patient History - Infectious Disease Hx of Infectious Diseases: None - Past Medical History & Family History Past Medical History?: Yes - Past Social History Smoking Status: Never Smoked - CARDIAC Hx Hypertension: Yes - PULMONARY Hx Tuberculosis: No - NEUROLOGICAL HX Cerebrovascular Accident: Yes - HEENT Hx Blind: Yes (left eye) Other/Comment: HARD OF HEARING, right eye blurry vision - RENAL Hx Chronic Kidney Disease: No - ENDOCRINE/METABOLIC Hx Endocrine Disorders: No - HEMATOLOGICAL/ONCOLOGICAL Hx Anemia: Yes - INTEGUMENTARY Hx Dermatological Problems: No - MUSCULOSKELETAL/RHEUMATOLOGICAL Hx Rheumatoid Arthritis: No - GASTROINTESTINAL Hx Gastroesophageal Reflux: Yes - GENITOURINARY/GYNECOLOGICAL Hx Sexually Transmitted Disorders: No - PSYCHIATRIC Hx Substance Use: No - SURGICAL HISTORY Hx Surgeries: Yes Other/Comment: hx of L nephrectomy - ANESTHESIA Hx Anesthesia: Yes Hx Anesthesia Reactions: No Hx Malignant Hyperthermia: No Meds Allergies/Adverse Reactions: Allergies Allergy/AdvReac Type Severity Reaction Status Date / Time No Known Allergies Allergy Verified 05/10/16 15:34 - Medications Medications: Current Medications Acetaminophen (Tylenol 325mg Tab) 650 mg PO Q6 PRN PRN Reason: Pain, moderate (4-7) Piperacillin Sod/Tazobactam Sod (Zosyn 3.375 Gm Iv Premix) 3.375 gm in 50 mls @ 100 mls/hr IVPB Q6H [facility] Last Admin: 06/28/16 18:12 Dose: 100 mls/hr Results - Vital Signs Recent Vital Signs: Last Vital Signs Temp 94.5 F L 06/28/16 15:25 Pulse 49 L 06/28/16 15:25 Resp 15 06/28/16 15:25 BP 122/68 06/28/16 15:25 Pulse Ox 94 L 06/28/16 15:25 - Labs Result Diagrams: 06/29/16 07:15 06/29/16 07:15 Assessment & Plan - Assessment and Plan (Free Text) Plan: ADDENDUM; CONTINUE IV ZOSYN ,DECREASE DOSE TO 2.25MG IV Q 8HRLY FOR ASPIRATION PNEUMONIA. ADDED IV AZACTAM 500MG IV Q 12HRLY IN VIEW OF HYPOTHERMIA/AND SEPSIS SYNDROME . ?UTI ALSO SUSPECTED .
[2016-06-29] MEDS: Piperacill/Tazo 3.375gm in Dex 3.375 GM/50 ML BAG IVPB SCH (00:55)
[2016-06-29] MEDS ORDERED: Piperacill/Tazo 2.25gm in Dex 2.25 GM/50 ML BAG IVPB SCH (02:00)
--- NOTE | 2016-06-29 03:12 | CON ---
DATE: 06/28/2016 REQUESTING PHYSICIAN: Dr. Kelley. REASON FOR CONSULTATION: The patient hypothermic sepsis. HISTORY OF PRESENT ILLNESS: The patient is an 89-year-old male with history of hypertension, dementi a, arthritis, CVA, who initially presented to the hospital from a group home facility with altered mental status on 06/19/2016. The patient currently nonverbal, unable to participate in any conversat ion, so additional information obtained via chart and nurse practitioner, Ms. Abraham. The patient was a dmitted with sepsis and hypertension, hypernatremia and was admitted to ICU for sepsis secondary to p neumonia requiring vasopressor support, which has been discontinued. The patient presently with decl ining status, still hyperthermic and on Cosme Hugger. The patient has also decreased p.o. intake and very emaciated. Chest x-ray last noted on 06/19/2016 showed emphysematous changes with COPD and patch y increased markings with consolidative changes, left lower lung zones consistent with infiltrate. T he patient was placed on IV Zosyn since 06/22/2016 on 3.375 q. 6 hourly, day #7 today. The patient' s son recently requested for PEG tube insertion for feeding the patient. Infectious disease consulta tion requested by PMD for hypothermia, sepsis and pneumonia. PAST MEDICAL HISTORY: As above, history of hypertension, dementia, arthritis, CVA and prostate CA. SOCIAL HISTORY: Not available. FAMILY HISTORY: Not available. The patient is a group home resident. REVIEW OF SYSTEMS: The patient review of systems is not obtainable because of dementia and altered m ental status at present. MEDICATIONS: As per chart reviewed. The patient on Zosyn 3.375 q. 6 hourly since 06/22/2016. Also getting Tylenol p.r.n. for fever or pain. PHYSICAL EXAMINATION: GENERAL: The patient is cachectic, chronically ill, nonverbal. On a Cosme Hugger. VITAL SIGNS: T-max of 94.5, blood pressure 107/60, pulse ox 49-50 per minute, respiratory rate 20, p ulse ox 98% on 2 liters nasal cannula. Weight of 106 pounds. HEENT: Pupils equal, reactive to light and accommodation. Extraocular movements could not be evalua saumya. Mucus membranes appear to be dry. NECK: Appears to be supple. LUNGS: Bibasilar rhonchi, especially left-sided. CARDIOVASCULAR SYSTEM: S1, S2, regular rhythm, no murmur or gallop. ABDOMEN: Soft, bowel sounds are present, nontender to palpation. The patient does not wince on pre ssure. EXTREMITIES: Normal inspection. No clubbing or edema. CENTRAL NERVOUS SYSTEM: Unable to evaluate as patient not participating with neurological examinatio n. LABORATORY DATA: WBC on 06/23/2016 noted to be 4.3, hemoglobin 8 and hematocrit 25.4, platelets 165, creatinine 1.2, BUN of 18 and sodium 147. Liver function test reported as noted were normal with no rmal transaminases. The patient initially was on vancomycin, which has been discontinued. Last vanc omycin trough 18.8 on 06/22/2016 and random vancomycin 16.47. Presently, the patient off vancomycin. Chest x-ray as reported above, COPD, patchy increased markings, left lower lung zones with consolid ation versus infiltrate versus atelectasis. IMPRESSION: 1. Sepsis hypothermia. 2. Pneumonia, most likely aspiration. 3. Malnourishment and cachexia. 4. History of cancer of the prostate. 5. History of cerebrovascular accident. 6. Dementia. PLAN: 1. The patient will decrease IV Zosyn to 2.25 q. 8 hourly in view of his low weight. The patient fo r PEG as per request son. 2. IV fluids. 3. Follow up chest x-rays repeat in a.m. As noted, the patient's son does not want any blood works. Will confer with PMD and staff. Continue conservative care as per PMD and family request. We will follow along with you. The patient is prese ntly being monitored for possible NG tube placement or enteral nutrition support as reported by GI. Thank you very much for allowing me to participate in the care of your patient. We will follow as ne eded. Cassia Arriaga MD cc: [id number] TT: 06/29/2016 03:11:55 Confirmation # [id number] Dictation # [id number] janet
[2016-06-29 07:23] LABS: BASO % 0.3 % (0.0-2.0); HEMATOCRIT 23.7 % (35.0-51.0); LYMPH # 0.2 K/uL (1.0-4.3); LYMPH % 4.2 % (20.0-40.0); MEAN CELL VOLUME 70.8 fL (80.0-94.0); MEAN CORPUSCULAR HEMOGLOBIN 22.3 pg (27.0-31.0); MEAN CORPUSCULAR HGB CONC 31.5 g/dL (33.0-37.0); MEAN PLATELET VOLUME 8.2 fL (7.2-11.7); MONO # 0.2 K/uL (0.0-0.8); MONO % 4.6 % (0.0-10.0); PLATELET COUNT 216 K/uL (130-400); RED CELL DISTRIBUTION WIDTH 18.4 % (11.5-14.5); WHITE BLOOD COUNT 5.2 K/uL (4.8-10.8)
[2016-06-29 07:31] LABS: INR 1.1
[2016-06-29 07:36] LABS: CHLORIDE 116 mmol/L (98-107); POTASSIUM 3.1 mmol/L (3.6-5.2); SODIUM 151 mmol/L (132-148)
[2016-06-29 07:38] LABS: GFR AFRICAN-AMERICAN 58
[2016-06-29 07:39] LABS: ALB/GLOB RATIO 0.7 (1.0-2.1); ALKALINE PHOSPHATASE 60 U/L (38-126); ALT/SGPT 43 U/L (21-72); AST/SGOT 48 U/L (17-59); BILIRUBIN,TOTAL 0.8 mg/dL (0.2-1.3); BLOOD UREA NITROGEN 16 mg/dL (9-20); CALCIUM 7.9 mg/dl (8.6-10.4); CARBON DIOXIDE 22 mmol/L (22-30); TOTAL PROTEIN 5.9 g/dL (6.3-8.3)
[2016-06-29 07:52] LABS: GLUCOSE,RANDOM < 20 mg/dL (75-110)
[2016-06-29] MEDS ORDERED: Dextrose 50% SYRINGE Inj (50 ml) IV STA ×3 (07:52→11:34)
[2016-06-29 07:55] LABS: MAGNESIUM 2.3 mg/dL (1.6-2.3); PHOSPHOROUS 3.8 mg/dL (2.5-4.5)
[2016-06-29] MEDS ORDERED: Sodium Chloride 0.9% 1,000 ML IV ONE (07:55)
[2016-06-29 08:26] LABS: CORTISOL AM 35.1 ug/dL (4.46-22.7); THYROID STIMULATING HORMONE 5.65 mIU/L (0.46-4.68)
[2016-06-29 08:28] LABS: DRAW SITE LB
--- NOTE | 2016-06-29 08:57 | RAD ---
PROCEDURE: CHEST RADIOGRAPH, 1 VIEW HISTORY: PNEUMONIA COMPARISON: 06/19/2016 FINDINGS: LUNGS: Portion of the left lower catracho thorax and costophrenic angle not imaged on this study. Small to moderate right pleural effusion. Airspace opacification in the right mid to lower lung zone. Linear atelectasis at the left lung base which is only partially imaged. Biapical pleural thickening with upper lobe granulomatous changes. Right hilar prominence. Punctate nodule and or granuloma at the left lung apex. PLEURA: As above. CARDIOVASCULAR: Cardiomegaly. OSSEOUS STRUCTURES: Degenerative changes in the spine and shoulders. VISUALIZED UPPER ABDOMEN: Normal. OTHER FINDINGS: None. IMPRESSION: Portion of the left lower catracho thorax and costophrenic angle not imaged on this study. Small to moderate right pleural effusion. Airspace opacification in the right mid to lower lung zone. Linear atelectasis at the left lung base which is only partially imaged. Biapical pleural thickening with upper lobe granulomatous changes. Right hilar prominence. Punctate nodule and or granuloma at the left lung apex.
[2016-06-29] MEDS ORDERED: Dextrose 5%/Lactated Ringer's 1,000 ML IV SCH (09:30)
[2016-06-29 10:27] LABS: ACANTHOCYTES SLIGHT; NEUTROPHIL 91 % (50-75); NUCLEATED RED BLOOD CELL 5 % (0-0); TOTAL CELLS COUNTED 100
[2016-06-29 10:58] LABS: RBC URINE 28 /hpf (0-3); URINE BILIRUBIN NEGATIVE (NEGATIVE); URINE BLOOD 2+ (NEGATIVE); URINE COLOR Yellow (YELLOW); URINE GLUCOSE (UA) NORMAL (Normal); URINE KETONE TRACE mg/dL (NEGATIVE); URINE LEUKOCYTE ESTERASE NEG Leu/uL (Negative); URINE PROTEIN NEGATIVE (NEGATIVE); URINE UROBILINOGEN NORMAL mg/dL (0.2-1.0)
--- NOTE | 2016-06-29 10:59 | CP.PCM.PN ---
Subjective - Date & Time of Evaluation Date of Evaluation: 06/29/16 Time of Evaluation: 10:54 - Subjective Subjective: Patient seen and examined. No acute events overnight, episode of hypoglycemia noted this morning. There is no reported abdominal pain, nausea, vomiting, fever/chills. Patient remains minimally arousable, non-conversive. Review of vitals from today are normal. 12 point review of systems not performed given altered patient mental status Objective - Vital Signs/Intake and Output Vital Signs (last 24 hours): Temp Pulse Resp BP Pulse Ox 98.4 F 103 H 22 113/45 L 91 L 06/29/16 07:32 06/29/16 07:32 06/29/16 07:32 06/29/16 07:32 06/29/16 07:32 Intake and Output: 06/29/16 06/29/16 06:59 18:59 Intake Total 50 100 Output Total 400 Balance -350 100 - Medications Medications: Current Medications Acetaminophen (Tylenol 325mg Tab) 650 mg PO Q6 PRN PRN Reason: Pain, moderate (4-7) Aztreonam 500 mg/ Sodium (Chloride) 50 mls @ 100 mls/hr IVPB Q12H [facility] Last Admin: 06/29/16 03:00 Dose: 100 mls/hr Piperacillin Sod/Tazobactam Sod (Zosyn 2.25 Gm Iv Premix) 2.25 gm in 50 mls @ 100 mls/hr IVPB Q8H [facility] Potassium Chloride (Potassium Chloride 20 Meq/100 Ml) 20 meq in 100 mls @ 50 mls/hr IVPB ONCE ONE Stop: 06/29/16 11:46 Dextrose/Lactated Ringer's (Dextrose 5%/Lactated Ringer's) 1,000 mls @ 50 mls/ hr IV .Q20H [facility] - Labs Labs: 06/29/16 07:15 06/29/16 07:15 PT 12.2 SECONDS (9.7-12.2) 06/29/16 07:15 INR 1.1 06/29/16 07:15 APTT 47 SECONDS (21-34) H 06/19/16 20:45 - Constitutional Appears: Non-toxic, Chronically Ill - Head Exam Head Exam: NORMAL INSPECTION - Eye Exam Eye Exam: PERRL - ENT Exam ENT Exam: Mucous Membranes Dry - Respiratory Exam Respiratory Exam: Clear to Ausculation Bilateral - Cardiovascular Exam Cardiovascular Exam: REGULAR RHYTHM, +S1, +S2 - GI/Abdominal Exam GI & Abdominal Exam: Soft, Normal Bowel Sounds Additional comments: non tender to palpation in four quadrants - Extremities Exam Extremities Exam: Normal Inspection - Skin Skin Exam: Dry, Intact, Normal Color, Warm Assessment and Plan - Assessment and Plan (Free Text) Assessment: Sepsis, pneumonia CVA History of prostate CA Dementia Malnourishment, cachexia Plan: - Continue with antibiotic therapy as per ID - Continue with IVF hydration, D5W - Will again discuss with patient's son regarding overall welt wheeler poor prognosis of patient and lack of benefit following gastrostomy placement, however if family wishes, attempt can be made to proceed with PEG - Will continue to monitor patient clinical course
[2016-06-29] MEDS ORDERED: Etomidate 20 mg/10ml Inj IV ONE (11:14)
[2016-06-29] MEDS: Dextrose 5%/Lactated Ringer's 1,000 ML IV SCH (11:55)
--- NOTE | 2016-06-29 12:36 | CP.PCM.PN ---
<Omkar Noyola - Last Filed: 06/29/16 12:37> Subjective - Date & Time of Evaluation Date of Evaluation: 06/29/16 Time of Evaluation: 08:10 - Subjective Subjective: PGY-1 Medicine Progress Note for Dr. Vann (covering Dr. Kelley) Patient seen and examined at bedside. Patient lyin gin bed and not responsive, this has been his baseline. Patient was NPO overnight for PEG tube placement. Procedure was cancelled due to clinical condition. Patient was labored breathing and hypoglycemic. He was placed on BiPAP and given D50. Patient improved and was transitioned to 4LNC. Patient is DNR/DNI, trying to get him apporved for inpatient hospice. ROS unobtainable due to AMS/Lethargy. Objective - Vital Signs/Intake and Output Vital Signs (last 24 hours): Temp Pulse Resp BP Pulse Ox 100.5 F H 92 H 16 115/64 99 06/29/16 11:25 06/29/16 11:25 06/29/16 11:25 06/29/16 11:25 06/29/16 11:25 Intake and Output: 06/29/16 06/29/16 06:59 18:59 Intake Total 50 100 Output Total 400 Balance -350 100 - Medications Medications: Current Medications Acetaminophen (Tylenol 325mg Tab) 650 mg PO Q6 PRN PRN Reason: Pain, moderate (4-7) Aztreonam 500 mg/ Sodium (Chloride) 50 mls @ 100 mls/hr IVPB Q12H [facility] Last Admin: 06/29/16 03:00 Dose: 100 mls/hr Piperacillin Sod/Tazobactam Sod (Zosyn 2.25 Gm Iv Premix) 2.25 gm in 50 mls @ 100 mls/hr IVPB Q8H [facility] Dextrose/Lactated Ringer's (Dextrose 5%/Lactated Ringer's) 1,000 mls @ 50 mls/ hr IV .Q20H [facility] Last Admin: 06/29/16 11:55 Dose: 50 mls/hr - Labs Labs: 06/29/16 07:15 06/29/16 07:15 PT 12.2 SECONDS (9.7-12.2) 06/29/16 07:15 INR 1.1 06/29/16 07:15 APTT 47 SECONDS (21-34) H 06/19/16 20:45 - Constitutional Appears: In Acute Distress (mild), Chronically Ill, Other (Lethargic) - Head Exam Head Exam: ATRAUMATIC, NORMOCEPHALIC - Eye Exam Eye Exam: Normal appearance - ENT Exam ENT Exam: Mucous Membranes Dry - Respiratory Exam Respiratory Exam: Clear to Ausculation Bilateral, NORMAL BREATHING PATTERN - Cardiovascular Exam Cardiovascular Exam: Tachycardia, +S1, +S2 - GI/Abdominal Exam GI & Abdominal Exam: Soft, Normal Bowel Sounds. absent: Distended - Extremities Exam Extremities Exam: Normal Capillary Refill - Back Exam Back Exam: NORMAL INSPECTION - Neurological Exam Neurological Exam: absent: Alert, Awake, CN II-XII Intact, Oriented x3 - Psychiatric Exam Psychiatric exam: Flat Affect - Skin Skin Exam: Dry, Intact, Normal Color Assessment and Plan - Assessment and Plan (Free Text) Assessment: 1. Pneumonia ID consult, Bart Gaxiola, help appreciated Aztreonam 500 mg IVPB Q12H Zosyn 2.25 gm IVPB Q8H D5 LR 50 cc/hr NS 1000 ml bolus 2. AMS/Lethargy Likely secondary to failure to thrive, hypoglycemia D50 IVP x 2 D5 LR 50 cc/hr Monitor 3. Hypoglycemia Likely secondary to failure to thrive, hypoglycemia D50 IVP x 2 D5 LR 50 cc/hr Monitor 4. Respiratory distress ABG Bipap --> 4LNC saturation 98-100% currently 5. Hypothermia Bear hugger T 100.5 rectally 6. Hypernatremia Na 151 NS 1000 ml bolus D5 LR 50 cc/hr Repeat BMP at 1330 Do not drop more than 8-10 within 24 hours to avoid central pontine myelinosis Monitor 7. Hypokalemia K 3.1 Mag 2.3 KCL 20 mEq IVPB x 1 D5 LR 50 cc/hr Monitor and replete as necessary 8. Failure to Thrive GI consult, Dr. Hernandez, help appreciated Plan is for PEG tube if stable D5 LR 50 cc/hr 9. ARF BUN/Cr: D5 LR 50 cc/hr 10. history of HTN Hold antihypertensive meds, actually hypotensive D5 LR 50 cc/hr NS 1000 ml bolus Monitor 11. Anemia Hgb 7.5 D5 LR 50 cc/hr NS 1000 ml bolus Monitor 12. Prophylactic Measures NPO due to AMS palliative consult, Michell Mccartney, help appreciated DNR/DNI Tylenol 650 mg PO Q6H PRN fever PT Swallow eval Speech eval <VannJacob macedo H - Last Filed: 06/29/16 13:27> Objective - Vital Signs/Intake and Output Vital Signs (last 24 hours): Temp Pulse Resp BP Pulse Ox 100.5 F H 92 H 16 115/64 99 06/29/16 11:25 06/29/16 11:25 06/29/16 11:25 06/29/16 11:25 06/29/16 11:25 Intake and Output: 06/29/16 06/29/16 06:59 18:59 Intake Total 50 100 Output Total 400 Balance -350 100 - Medications Medications: Current Medications Acetaminophen (Tylenol 325mg Tab) 650 mg PO Q6 PRN PRN Reason: Pain, moderate (4-7) Aztreonam 500 mg/ Sodium (Chloride) 50 mls @ 100 mls/hr IVPB Q12H [facility] Last Admin: 06/29/16 03:00 Dose: 100 mls/hr Piperacillin Sod/Tazobactam Sod (Zosyn 2.25 Gm Iv Premix) 2.25 gm in 50 mls @ 100 mls/hr IVPB Q8H [facility] Dextrose/Lactated Ringer's (Dextrose 5%/Lactated Ringer's) 1,000 mls @ 50 mls/ hr IV .Q20H [facility] Last Admin: 06/29/16 11:55 Dose: 50 mls/hr - Labs Labs: 06/29/16 07:15 06/29/16 07:15 PT 12.2 SECONDS (9.7-12.2) 06/29/16 07:15 INR 1.1 06/29/16 07:15 APTT 47 SECONDS (21-34) H 06/19/16 20:45 Attending/Attestation - Attestation I have personally seen and examined this patient.: Yes I have fully participated in the care of the patient.: Yes I have reviewed all pertinent clinical information, including history, physical exam and plan: Yes Notes (Text): 06/29/16 13:25 Medical attending: Patient was seen and examined with the medical billing representative. Agrees the above note by medical billing representative. Currently the hospitalist services covering patient's primary care physician. I had to speak with the staff as well as reviewed previous notes the patient is DNR/DNI. There was an attempt to place a PEG tube earlier this morning however the patient's blood sugar decreased substantially and so GI is postponing this I had a discussion with the training officer on the case, from what I understand the family was wanting to try to get hospice outpatient however this was not possible. So at this time they're going to try to get hospice inpatient The patient does have episodes of low pulse ox and has to be on BiPAP from time to time when I saw him he was not awake he was not able to respond any commands or stimui Jacob Vann
[2016-06-29] MEDS: Piperacill/Tazo 2.25gm in Dex 2.25 GM/50 ML BAG IVPB SCH ×2 (13:35→16:00)
--- NOTE | 2016-06-29 14:49 | CP.PCM.PN ---
Subjective - Date & Time of Evaluation Date of Evaluation: 06/29/16 Time of Evaluation: 14:47 - Subjective Subjective: Patient does not make eye contacts, looking very sick. Objective - Vital Signs/Intake and Output Vital Signs (last 24 hours): Temp Pulse Resp BP Pulse Ox 100.5 F H 92 H 16 115/64 99 06/29/16 11:25 06/29/16 11:25 06/29/16 11:25 06/29/16 11:25 06/29/16 11:25 Intake and Output: 06/29/16 06/29/16 06:59 18:59 Intake Total 50 100 Output Total 400 Balance -350 100 - Medications Medications: Current Medications Acetaminophen (Tylenol 325mg Tab) 650 mg PO Q6 PRN PRN Reason: Pain, moderate (4-7) Aztreonam 500 mg/ Sodium (Chloride) 50 mls @ 100 mls/hr IVPB Q12H [facility] Last Admin: 06/29/16 14:38 Dose: 100 mls/hr Piperacillin Sod/Tazobactam Sod (Zosyn 2.25 Gm Iv Premix) 2.25 gm in 50 mls @ 100 mls/hr IVPB Q8H [facility] Last Admin: 06/29/16 13:35 Dose: 100 mls/hr Dextrose/Lactated Ringer's (Dextrose 5%/Lactated Ringer's) 1,000 mls @ 50 mls/ hr IV .Q20H [facility] Last Admin: 06/29/16 11:55 Dose: 50 mls/hr - Labs Labs: 06/29/16 07:15 06/29/16 07:15 PT 12.2 SECONDS (9.7-12.2) 06/29/16 07:15 INR 1.1 06/29/16 07:15 APTT 47 SECONDS (21-34) H 06/19/16 20:45 - Constitutional Appears: Chronically Ill - Head Exam Head Exam: ATRAUMATIC, NORMAL INSPECTION, NORMOCEPHALIC - Eye Exam Eye Exam: EOMI, Normal appearance, PERRL Pupil Exam: NORMAL ACCOMODATION - ENT Exam ENT Exam: Mucous Membranes Dry - Neck Exam Neck Exam: Normal Inspection - Respiratory Exam Respiratory Exam: Decreased Breath Sounds, NORMAL BREATHING PATTERN - Cardiovascular Exam Cardiovascular Exam: Tachycardia - GI/Abdominal Exam GI & Abdominal Exam: Soft, Hypoactive Bowel Sounds - Rectal Exam Rectal Exam: Deferred - Extremities Exam Extremities Exam: Normal Capillary Refill, Normal Inspection, Pedal Edema - Back Exam Back Exam: NORMAL INSPECTION - Neurological Exam Neurological Exam: Alert, Altered Neuro motor strength exam: Left Upper Extremity: 2/, Right Upper Extremity: 2/ , Left Lower Extremity: 2/, Right Lower Extremity: 2/ - Psychiatric Exam Psychiatric exam: Flat Affect - Skin Skin Exam: Dry Assessment and Plan - Assessment and Plan (Free Text) Assessment: Palliative care progress note Patient is lethargic, unresponsive, what has been his base line for the last few days. No PO intake. Patient was planned for PEG insertion today , what was cancelled due to poor clinical condition. I got called by Doctor Eugene asking me to assist him in getting hold of patient's son Bryan. I tried the phone number on chart without successes, than spoke to patient's granddaughter . She promised to get in touch with the son Bryan. As per my discussion with Bryan regarding end of life care, he was clear that he would not want any aggressive measures in his father care. He was mostly concerned with father's comfort level. Later on patient was accepted to inhouse hospice . Impression * This is a very sik man nearing end of his life * Patient's son Bryan advocated in the past for comfort measures * patient is DNR/DNI Suggestion * Agree with hospice care
[2016-06-29 16:30] LABS: POTASSIUM 3.5 mmol/L (3.6-5.2)
[2016-06-29 16:33] LABS: CALCIUM 7.4 mg/dl (8.6-10.4)
--- NOTE | 2016-06-29 18:39 | CP.PCM.PN ---
Subjective - Date & Time of Evaluation Date of Evaluation: 06/29/16 Time of Evaluation: 18:38 - Subjective Subjective: TMAX 100.5, BP 131/70 HAD AN EPISODE OF HYPOGLYCEMIA THIS MORNING WITH BLOOD SUGAR OF 43 PATIENT GIVEN AMPUL OF D50 AND RESPONDED. pATIENT STILL NONVERBAL, MINIMALLY RESPONSIVE TO PAINFUL STIMULI . H/H 7.5/23.7. PEG INSERTION CANCELED SECONDARY TO HIS CONDITION. Objective - Vital Signs/Intake and Output Vital Signs (last 24 hours): Temp Pulse Resp BP Pulse Ox 97.5 F L 79 20 131/70 79 L 06/29/16 16:28 06/29/16 16:28 06/29/16 16:28 06/29/16 16:28 06/29/16 16:28 Intake and Output: 06/29/16 06/29/16 06:59 18:59 Intake Total 50 100 Output Total 400 Balance -350 100 - Medications Medications: Current Medications Acetaminophen (Tylenol 325mg Tab) 650 mg PO Q6 PRN PRN Reason: Pain, moderate (4-7) Aztreonam 500 mg/ Sodium (Chloride) 50 mls @ 100 mls/hr IVPB Q12H [facility] Last Admin: 06/29/16 14:38 Dose: 100 mls/hr Piperacillin Sod/Tazobactam Sod (Zosyn 2.25 Gm Iv Premix) 2.25 gm in 50 mls @ 100 mls/hr IVPB Q8H [facility] Last Admin: 06/29/16 13:35 Dose: 100 mls/hr Dextrose/Lactated Ringer's (Dextrose 5%/Lactated Ringer's) 1,000 mls @ 50 mls/ hr IV .Q20H [facility] Last Admin: 06/29/16 11:55 Dose: 50 mls/hr - Labs Labs: 06/29/16 07:15 06/29/16 16:17 PT 12.2 SECONDS (9.7-12.2) 06/29/16 07:15 INR 1.1 06/29/16 07:15 APTT 47 SECONDS (21-34) H 06/19/16 20:45 - Constitutional Appears: Cachectic, Chronically Ill - Head Exam Head Exam: NORMAL INSPECTION - Eye Exam Eye Exam: PERRL - ENT Exam ENT Exam: Mucous Membranes Dry - Neck Exam Neck Exam: Normal Inspection - Respiratory Exam Respiratory Exam: Decreased Breath Sounds - Cardiovascular Exam Cardiovascular Exam: Tachycardia, REGULAR RHYTHM, +S1, +S2 - GI/Abdominal Exam GI & Abdominal Exam: Soft, Normal Bowel Sounds - Extremities Exam Extremities Exam: absent: Calf Tenderness, Pedal Edema - Neurological Exam Neurological Exam: Altered - Skin Skin Exam: Pallor Assessment and Plan (1) Altered mental status Status: Acute (2) Aspiration pneumonia Status: Acute (3) Dehydration Status: Acute (4) Hypernatremia Status: Acute (5) Acute CVA (cerebrovascular accident) Status: Acute (6) Hypothermia Status: Acute (7) Anemia Status: Acute (8) Prostate cancer Status: Acute - Assessment and Plan (Free Text) Plan: PLAN; WILL CONTINUE TO MONITOR PATIENT'S CLINICAL COURSE. fOR NOW CONTINUE iv zOSYN 2.25 iv PIGGYBACK EVERY 8 HOURLY. CONTINUE aZACTAM 500 MG EVERY 12 HOURLY. 06/29 F/U URINE CULTURE TO ADJUST ANTIBIOTICS. DIFLUCAN 200 MG LD,F/U 100 MG ONCE A DAY DAILY X 5 DAYS.06/29 PATIENT BEING FOLLOWED BY PALLIATIVE CARE, CONSIDERING HOSPICE CARE. tO DISCUSS WITH SON PER PMD.
[2016-06-29] MEDS ORDERED: Fluconazole IV 200mg/100 ml NS 100 ML IVPB ONE (21:00)
[2016-06-30 01:44] LABS: CHLORIDE 119 mmol/L (98-107); POTASSIUM 3.3 mmol/L (3.6-5.2); SODIUM 149 mmol/L (132-148)
[2016-06-30 01:46] LABS: ALB/GLOB RATIO 0.6 (1.0-2.1); AST/SGOT 38 U/L (17-59); BILIRUBIN,TOTAL 0.7 mg/dL (0.2-1.3); CARBON DIOXIDE 21 mmol/L (22-30); GFR AFRICAN-AMERICAN > 60; TOTAL PROTEIN 5.4 g/dL (6.3-8.3)
[2016-06-30 01:47] LABS: ALKALINE PHOSPHATASE 51 U/L (38-126); ALT/SGPT 35 U/L (21-72); BLOOD UREA NITROGEN 15 mg/dL (9-20); CALCIUM 6.8 mg/dl (8.6-10.4); GLUCOSE,RANDOM 74 mg/dL (75-110)
--- NOTE | 2016-06-30 02:58 | PN ---
DATE: 06/27/2016 The patient was seen on 06/27/2016, with his son at the bedside. The patient was lethargic and he was not following commands at the time of this examination. PHYSICAL EXAMINATION: VITAL SIGNS: Blood pressure wa130/70 , pulse 70. NECK: No JVD, no carotid bruit, no lymph node, no thyromegaly. CHEST AND LUNGS: Bilateral symmetrical expansion. Good air exchange. No rales , no rhonchi. CARDIOVASCULAR: PMI not localized. S1, S2. No additional sounds. ABDOMEN: Decreased bowel sounds, no tenderness, no organomegaly, no masses. EXTREMITIES: No cyanosis, no clubbing, no edema. CENTRAL NERVOUS SYSTEM: The patient is lethargic and he is not following commands at the time of this examination. ASSESSMENT: 1. Sepsis. 2. Dementia. 3. History of prostate cancer. PLAN: I discussed general condition with the patient's son, and due to decreased oral intake, the gastric tube feeding was discussed, and the patient' s son chose not to have gastric tube feeding on 06/27/2016, refer patient to hospice, and continue comfort care. [facility] Primo Kelley MD cc: [id number] TT: 06/30/2016 02:57:10 Confirmation # [id number] Dictation # [id number] MTDD
--- NOTE | 2016-06-30 03:02 | PN ---
DATE: 06/28/2016 SUBJECTIVE: The patient was seen on 06/28/2016. PHYSICAL EXAMINATION: VITAL SIGNS: His temperature was still low at 94.4, heart rate 50, blood pressure 138/68, and respir atory rate 18. CENTRAL NERVOUS SYSTEM: Patient is lethargic. He is responding to noxious stimuli only, but he is n ot following commands. NECK: No JVD, no carotid bruit, no lymph node. CHEST AND LUNGS: Bilateral symmetrical expansion. Good air exchange. No rales, no rhonchi. CARDIOVASCULAR: PMI not localized. S1, S2. No additional sounds. ABDOMEN: Decreased bowel sounds, no tenderness, no organomegaly, no masses. EXTREMITIES: No cyanosis, no clubbing, no edema. CENTRAL NERVOUS SYSTEM: The patient is lethargic and he is not responding to verbal stimuli. PLAN: I discussed the patient's condition with the son, who reversed his decision for hospice evalua tion, and he requested for gastric tube placement for feeding. At this point, ID consult is requeste d, as well as a GI consult for possible gastric tube placement. I will continue current IV antibioti cs and oral hydration. I will be away from 06/29/2016 until 07/02/2016. The hospitalist team will be covering for me during this time. Nigel Kelley MD cc: [id number] TT: 06/30/2016 03:02:29 Confirmation # [id number] Dictation # [id number]
[2016-06-30] MEDS: Piperacill/Tazo 2.25gm in Dex 2.25 GM/50 ML BAG IVPB SCH ×4 (03:42→23:33)
[2016-06-30] MEDS: Dextrose 5%/Lactated Ringer's 1,000 ML IV SCH (05:49)
[2016-06-30 07:55] LABS: BASO # 0.1 K/uL (0.0-0.2); BASO % 1.5 % (0.0-2.0); HEMATOCRIT 24.4 % (35.0-51.0); LYMPH # 0.5 K/uL (1.0-4.3); LYMPH % 10.9 % (20.0-40.0); MEAN CELL VOLUME 70.9 fL (80.0-94.0); MEAN CORPUSCULAR HEMOGLOBIN 22.8 pg (27.0-31.0); MEAN CORPUSCULAR HGB CONC 32.2 g/dL (33.0-37.0); MEAN PLATELET VOLUME 7.9 fL (7.2-11.7); MONO # 0.5 K/uL (0.0-0.8); MONO % 11.5 % (0.0-10.0); NRBC % 4.9 % (0.0-2.0); RED CELL DISTRIBUTION WIDTH 18.9 % (11.5-14.5); WHITE BLOOD COUNT 4.3 K/uL (4.8-10.8)
[2016-06-30 08:04] LABS: CHLORIDE 118 mmol/L (98-107)
[2016-06-30 08:05] LABS: SODIUM 148 mmol/L (132-148)
[2016-06-30 08:06] LABS: POTASSIUM 4.9 mmol/L (3.6-5.2)
[2016-06-30 08:08] LABS: ALB/GLOB RATIO 0.7 (1.0-2.1); ALKALINE PHOSPHATASE 62 U/L (38-126); ALT/SGPT 30 U/L (21-72); AST/SGOT 35 U/L (17-59); BILIRUBIN,TOTAL 0.7 mg/dL (0.2-1.3); BLOOD UREA NITROGEN 15 mg/dL (9-20); CALCIUM 7.3 mg/dl (8.6-10.4); CARBON DIOXIDE 25 mmol/L (22-30); GFR AFRICAN-AMERICAN > 60; GLUCOSE,RANDOM 82 mg/dL (75-110); PHOSPHOROUS 2.5 mg/dL (2.5-4.5); TOTAL PROTEIN 5.7 g/dL (6.3-8.3)
[2016-06-30 08:09] LABS: MAGNESIUM 1.7 mg/dL (1.6-2.3)
--- NOTE | 2016-06-30 08:31 | RAD ---
HISTORY: fluid overload COMPARISON: Comparison is made to the previous study dated 06/29/2016 FINDINGS: LUNGS: No significant interval change in the lungs noted since the previous exam. Hyperinflation of the lungs and patchy opacities at the mid and lower portion of the lungs bilaterally are again noted. There is large hiatus or diaphragmatic hernia seen at the left retrocardiac space. PLEURA: There is right pleural effusion again seen at these larger compared to the previous exam. CARDIOVASCULAR: The cardiac silhouette is enlarged. OSSEOUS STRUCTURES: No significant abnormalities. VISUALIZED UPPER ABDOMEN: Normal. OTHER FINDINGS: None. IMPRESSION: Interval mild increase in the size of the right pleural effusion. Otherwise no significant interval change.
--- NOTE | 2016-06-30 08:56 | CP.PCM.PN ---
<Naila Shah - Last Filed: 06/30/16 08:54> Subjective - Date & Time of Evaluation Date of Evaluation: 06/30/16 Time of Evaluation: 08:54 - Subjective Subjective: Gastroenterology Fellow/PGY4 Progress Note Patient is nonverbal. Resting comfortably on nasal cannula. Nursing notes oxygen [id number]% with attempted titration down from5 Liters nasal cannula. Nothing by mouth. No bowel movement. A 12-point review of systems negative except for as above. Objective - Vital Signs/Intake and Output Vital Signs (last 24 hours): Temp Pulse Resp BP Pulse Ox 97.7 F 85 20 110/70 95 06/30/16 07:40 06/30/16 07:40 06/30/16 07:40 06/30/16 07:40 06/30/16 07:40 Intake and Output: 06/30/16 06/30/16 06:59 18:59 Intake Total 500 Output Total 3100 Balance -2600 - Medications Medications: Current Medications Acetaminophen (Tylenol 325mg Tab) 650 mg PO Q6 PRN PRN Reason: Pain, moderate (4-7) Aztreonam 500 mg/ Sodium (Chloride) 50 mls @ 100 mls/hr IVPB Q12H [facility] Last Admin: 06/30/16 03:15 Dose: 100 mls/hr Piperacillin Sod/Tazobactam Sod (Zosyn 2.25 Gm Iv Premix) 2.25 gm in 50 mls @ 100 mls/hr IVPB Q8H [facility] Last Admin: 06/30/16 03:42 Dose: 100 mls/hr Dextrose/Lactated Ringer's (Dextrose 5%/Lactated Ringer's) 1,000 mls @ 50 mls/ hr IV .Q20H [facility] Last Admin: 06/30/16 05:49 Dose: Not Given Fluconazole (Diflucan Iv 200 Mg/100 Ml Ns) 100 mls @ 100 mls/hr IVPB DAILY [facility] Potassium Chloride (Potassium Chloride 20 Meq/100 Ml) 20 meq in 100 mls @ 50 mls/hr IVPB ONCE ONE Stop: 06/30/16 10:29 Last Admin: 06/30/16 08:44 Dose: Not Given - Labs Labs: 06/30/16 07:32 06/30/16 07:32 PT 12.2 SECONDS (9.7-12.2) 06/29/16 07:15 INR 1.1 06/29/16 07:15 APTT 47 SECONDS (21-34) H 06/19/16 20:45 - Constitutional Appears: Non-toxic, No Acute Distress, Chronically Ill - Head Exam Head Exam: ATRAUMATIC, NORMOCEPHALIC - Eye Exam Eye Exam: EOMI, PERRL Pupil Exam: PERRL. absent: Miosis, Mydriatic - ENT Exam ENT Exam: Mucous Membranes Moist, Normal Oropharynx - Neck Exam Neck Exam: Full ROM, Normal Inspection - Respiratory Exam Respiratory Exam: Clear to Ausculation Bilateral. absent: Rales, Rhonchi, Wheezes - Cardiovascular Exam Cardiovascular Exam: RRR, +S1, +S2. absent: Gallop, Rubs - GI/Abdominal Exam GI & Abdominal Exam: Soft, Normal Bowel Sounds. absent: Distended, Firm, Guarding, Rigid, Tenderness, Organomegaly, Rebound - Extremities Exam Extremities Exam: Normal Inspection. absent: Pedal Edema - Neurological Exam Neurological Exam: Altered. absent: Alert, Awake, Oriented x3 Additional comments: nonverbal, not awake to follow commands - Psychiatric Exam Additional comments: unable to assess, nonverbal - Skin Skin Exam: Dry, Intact, Normal Color, Warm Assessment and Plan - Assessment and Plan (Free Text) Assessment: 89 year old male with history of Prostate Cancer, Dementia, and malnourishment with active treatment of sepsis secondary to Pneumonia and urinary tract infection. Ongoing hypothermia requiring meryl hugger. Plan: >request for evaluation for PEG placement >medically unstable on attempt for PEG placement yesterday -hypoglycemia, febrile, labored breathing >required BiPAP on 06/29 >hypoxic respiratory insufficiency- currently requiring 5L NC >Chest xray- right pleural effusion, mediastinal shift, consolidate >risks vs benefit discussed with sonBryan [phone] >recommend NG placement for enteral nutrition >on Diflucan and Aztreonam >will hold off on PEG placement until medically optimized >family considering hospice, documented reversed request on 06/29, and requesting aggressive care >overall poor prognosis in setting of sepsis, hypoxic respiratory insufficiency , advanced age <Deidra Murphy - Last Filed: 06/30/16 10:31> Objective - Vital Signs/Intake and Output Vital Signs (last 24 hours): Temp Pulse Resp BP Pulse Ox 97.7 F 85 20 115/74 95 06/30/16 07:40 06/30/16 07:40 06/30/16 07:40 06/30/16 09:38 06/30/16 07:40 Intake and Output: 06/30/16 06/30/16 06:59 18:59 Intake Total 500 Output Total 3100 Balance -2600 - Medications Medications: Current Medications Acetaminophen (Tylenol 325mg Tab) 650 mg PO Q6 PRN PRN Reason: Pain, moderate (4-7) Aztreonam 500 mg/ Sodium (Chloride) 50 mls @ 100 mls/hr IVPB Q12H [facility] Last Admin: 06/30/16 03:15 Dose: 100 mls/hr Piperacillin Sod/Tazobactam Sod (Zosyn 2.25 Gm Iv Premix) 2.25 gm in 50 mls @ 100 mls/hr IVPB Q8H [facility] Last Admin: 06/30/16 03:42 Dose: 100 mls/hr Fluconazole (Diflucan Iv 200 Mg/100 Ml Ns) 100 mls @ 100 mls/hr IVPB DAILY [facility] Potassium Chloride (Potassium Chloride 20 Meq/100 Ml) 20 meq in 100 mls @ 50 mls/hr IVPB ONCE ONE Stop: 06/30/16 10:29 Last Admin: 06/30/16 08:44 Dose: Not Given - Labs Labs: 06/30/16 07:32 06/30/16 07:32 PT 12.2 SECONDS (9.7-12.2) 06/29/16 07:15 INR 1.1 06/29/16 07:15 APTT 47 SECONDS (21-34) H 06/19/16 20:45 Attending/Attestation - Attestation I have personally seen and examined this patient.: Yes I have fully participated in the care of the patient.: Yes I have reviewed all pertinent clinical information, including history, physical exam and plan: Yes Notes (Text): Patient seen and examined with GI fellow. Agree with her note as documented above with the following additions/exceptions. This is an 89 year old male with history of dementia, prostate cancer who is admitted from [facility] with altered mental status and decreased PO intake. He is found to have fungal UTI and fluid overload/pleural effusion/PNA requiring BIPAP. PEG was planned for yesterday, but cancelled due to clinical status. He has been titrated off BIPAP , but remains on O2, desaturating to 80s off of oxygen. He is minimally responsive/nonverbal. Continue antibiotic/antifungal therapy as per infectious disease. Would place NGT for feeding for the time being and treat conservatively. Please re-call when the patient is clinically stable for PEG placement. 06/30/16 10:29
[2016-06-30 10:02] LABS: ABG ALLEN TEST POS; DRAW SITE RR
--- NOTE | 2016-06-30 11:11 | RAD ---
HISTORY: coarse lung sounds . Portable study 08:15. COMPARISON: Multiple serial examinations preceding the most recent study: June 29, 2016. 19:30. FINDINGS: LUNGS: Progressive volume loss/atelectasis right lung with compensatory hyperaeration left lung. Consolidative changes in the left base process. PLEURA: No significant pleural effusion identified, no pneumothorax apparent. CARDIOVASCULAR: No radiographic findings to suggest acute or significant cardiovascular disease. OSSEOUS STRUCTURES: No significant abnormalities. VISUALIZED UPPER ABDOMEN: Normal. OTHER FINDINGS: None. IMPRESSION: Worsening atelectasis right lung which appears to be nearly completely collapsed.
[2016-06-30] MEDS ORDERED: metroNIDAZOLE IV 500 mg/100 ml 250 MG in Premixed IV 1 EA IVPB STA (11:29)
[2016-06-30 11:50] LABS: SODIUM 150 mmol/L (132-148)
[2016-06-30 11:53] LABS: ALB/GLOB RATIO 0.7 (1.0-2.1); ALKALINE PHOSPHATASE 69 U/L (38-126); AST/SGOT 38 U/L (17-59); BILIRUBIN,TOTAL 0.8 mg/dL (0.2-1.3); CARBON DIOXIDE 23 mmol/L (22-30); GFR AFRICAN-AMERICAN > 60; TOTAL PROTEIN 6.2 g/dL (6.3-8.3)
[2016-06-30 11:54] LABS: ALT/SGPT 32 U/L (21-72); BLOOD UREA NITROGEN 16 mg/dL (9-20); CALCIUM 7.5 mg/dl (8.6-10.4); GLUCOSE,RANDOM 73 mg/dL (75-110)
[2016-06-30 12:05] LABS: CHLORIDE 117 mmol/L (98-107)
[2016-06-30] MEDS: Fluconazole IV 200mg/100 ml NS 100 ML IVPB SCH (12:33)
--- NOTE | 2016-06-30 14:08 | CP.PCM.PN ---
Subjective - Date & Time of Evaluation Date of Evaluation: 06/30/16 Time of Evaluation: 14:07 - Subjective Subjective: events noted this a.m. afebrile. PATIENT NONVERBAL patient on BiPAP as oxygen saturation decreasing THIS A.M. NOW oxygen saturation increased to 93%. Chest x-ray reviewed-06/30/16-worsening atelectasis/complete collapse right lung Consolidative changes left lung base ?ASPIRATION Objective - Vital Signs/Intake and Output Vital Signs (last 24 hours): Temp Pulse Resp BP Pulse Ox 97.7 F 85 20 115/74 95 06/30/16 07:40 06/30/16 07:40 06/30/16 07:40 06/30/16 09:38 06/30/16 07:40 Intake and Output: 06/30/16 06/30/16 06:59 18:59 Intake Total 500 Output Total 3100 Balance -2600 - Medications Medications: Current Medications Acetaminophen (Tylenol 325mg Tab) 650 mg PO Q6 PRN PRN Reason: Pain, moderate (4-7) Aztreonam 500 mg/ Sodium (Chloride) 50 mls @ 100 mls/hr IVPB Q12H [facility] Last Admin: 06/30/16 03:15 Dose: 100 mls/hr Piperacillin Sod/Tazobactam Sod (Zosyn 2.25 Gm Iv Premix) 2.25 gm in 50 mls @ 100 mls/hr IVPB Q8H [facility] Last Admin: 06/30/16 11:39 Dose: 100 mls/hr Fluconazole (Diflucan Iv 200 Mg/100 Ml Ns) 100 mls @ 100 mls/hr IVPB DAILY [facility] Last Admin: 06/30/16 12:33 Dose: 100 mls/hr Metronidazole 250 mg/ (Miscellaneous) 50 mls @ 100 mls/hr IVPB Q8H [facility] - Labs Labs: 06/30/16 07:32 06/30/16 11:13 PT 12.2 SECONDS (9.7-12.2) 06/29/16 07:15 INR 1.1 06/29/16 07:15 APTT 47 SECONDS (21-34) H 06/19/16 20:45 - Constitutional Appears: Cachectic, Chronically Ill - Head Exam Head Exam: NORMAL INSPECTION - Eye Exam Eye Exam: PERRL - ENT Exam ENT Exam: Mucous Membranes Dry - Neck Exam Neck Exam: Normal Inspection - Respiratory Exam Respiratory Exam: Decreased Breath Sounds (RIGHT SIDE WITH RHONCHI LEFT LUNG.) - Cardiovascular Exam Cardiovascular Exam: REGULAR RHYTHM, +S1, +S2 - GI/Abdominal Exam GI & Abdominal Exam: Soft, Normal Bowel Sounds - Extremities Exam Extremities Exam: absent: Calf Tenderness, Pedal Edema - Neurological Exam Neurological Exam: Altered (HYPOTHERMIC ON JUN HUGGER) Assessment and Plan (1) Altered mental status Status: Acute (2) Aspiration pneumonia Status: Acute (3) Dehydration Status: Acute (4) Hypernatremia Status: Acute (5) Acute CVA (cerebrovascular accident) Status: Acute (6) Hypothermia Status: Acute (7) Anemia Status: Acute (8) Prostate cancer Status: Acute - Assessment and Plan (Free Text) Plan: WILL CONTINUE TO MONITOR PATIENT'S CLINICAL COURSE. fOR NOW CONTINUE iv zOSYN 2.25 iv PIGGYBACK EVERY 8 HOURLY. CONTINUE aZACTAM 500 MG EVERY 12 HOURLY. 06/29 ADD IV FLAGYL 250MG IV Q 8HRLY 06/30/[address] ALISON IRVIN. DIFLUCAN 200 MG LD,F/U 100 MG ONCE A DAY DAILY X 5 DAYS.06/29 PROGNOSIS GUARDED PATIENT BEING FOLLOWED BY PALLIATIVE CARE, PT DNR/DNI CONSIDERING HOSPICE CARE. AWAITING SONS RESPONSE.
[2016-06-30] MEDS: metroNIDAZOLE IV 500 mg/100 ml 250 MG in Premixed IV 1 EA IVPB SCH (18:59)
[2016-07-01] MEDS: metroNIDAZOLE IV 500 mg/100 ml 250 MG in Premixed IV 1 EA IVPB SCH ×3 (03:30→20:07)
[2016-07-01 07:25] LABS: BASO % 0.7 % (0.0-2.0); LYMPH # 0.8 K/uL (1.0-4.3); LYMPH % 17.7 % (20.0-40.0); MEAN CORPUSCULAR HEMOGLOBIN 22.5 pg (27.0-31.0); MEAN CORPUSCULAR HGB CONC 31.7 g/dL (33.0-37.0); MEAN PLATELET VOLUME 8.1 fL (7.2-11.7); MONO # 0.4 K/uL (0.0-0.8); MONO % 9.8 % (0.0-10.0); NRBC % 11.6 % (0.0-2.0); RED CELL DISTRIBUTION WIDTH 18.2 % (11.5-14.5); WHITE BLOOD COUNT 4.5 K/uL (4.8-10.8)
[2016-07-01 07:31] LABS: MAGNESIUM 1.8 mg/dL (1.6-2.3); PHOSPHOROUS 3.5 mg/dL (2.5-4.5)
[2016-07-01] MEDS: Piperacill/Tazo 2.25gm in Dex 2.25 GM/50 ML BAG IVPB SCH ×2 (08:06→16:53)
[2016-07-01 09:57] LABS: POTASSIUM 3.2 mmol/L (3.6-5.2)
[2016-07-01 09:59] LABS: ALB/GLOB RATIO 0.6 (1.0-2.1); BILIRUBIN,TOTAL 0.8 mg/dL (0.2-1.3); TOTAL PROTEIN 5.7 g/dL (6.3-8.3)
[2016-07-01 10:00] LABS: CALCIUM 6.9 mg/dl (8.6-10.4)
[2016-07-01] MEDS: Fluconazole IV 200mg/100 ml NS 100 ML IVPB SCH (10:02)
--- NOTE | 2016-07-01 11:29 | CP.PCM.PN ---
Subjective - Date & Time of Evaluation Date of Evaluation: 07/01/16 Time of Evaluation: 11:20 - Subjective Subjective: I spoke with the patient's family at bedside who identified himself as a grandson. The patient's son Bryan is coming in very soon Currently patient is on Bipap, non responsive to commands or stimuli. There is complete opacification of the right lung on CXRAY. Patient is DNR and DNI. From what I understand there was discussion of outpatient hospice. But this was not possible, as of now it appears they are doing hospice inpatient. Objective - Vital Signs/Intake and Output Vital Signs (last 24 hours): Temp Pulse Resp BP Pulse Ox 98.3 F 92 H 18 104/63 99 07/01/16 08:14 07/01/16 08:14 07/01/16 08:14 07/01/16 08:14 07/01/16 08:14 Intake and Output: 07/01/16 07/01/16 06:59 18:59 Output Total 300 Balance -300 - Medications Medications: Current Medications Acetaminophen (Tylenol 325mg Tab) 650 mg PO Q6 PRN PRN Reason: Pain, moderate (4-7) Aztreonam 500 mg/ Sodium (Chloride) 50 mls @ 100 mls/hr IVPB Q12H [facility] Last Admin: 07/01/16 03:00 Dose: 100 mls/hr Piperacillin Sod/Tazobactam Sod (Zosyn 2.25 Gm Iv Premix) 2.25 gm in 50 mls @ 100 mls/hr IVPB Q8H [facility] Last Admin: 07/01/16 08:06 Dose: 100 mls/hr Fluconazole (Diflucan Iv 200 Mg/100 Ml Ns) 100 mls @ 100 mls/hr IVPB DAILY [facility] Last Admin: 07/01/16 10:02 Dose: 100 mls/hr Metronidazole 250 mg/ (Miscellaneous) 50 mls @ 100 mls/hr IVPB Q8H [facility] Last Admin: 07/01/16 03:30 Dose: 100 mls/hr - Labs Labs: 07/01/16 07:11 07/01/16 09:33 PT 12.2 SECONDS (9.7-12.2) 06/29/16 07:15 INR 1.1 06/29/16 07:15 APTT 47 SECONDS (21-34) H 06/19/16 20:45 - Constitutional Appears: Cachectic, Chronically Ill - ENT Exam ENT Exam: Mucous Membranes Moist - Respiratory Exam Respiratory Exam: Decreased Breath Sounds, Rales, Rhonchi Additional comments: On Bipaap, decrease lung sounds - Neurological Exam Neurological Exam: absent: Alert, Altered, Awake - Skin Skin Exam: Pallor, Warm Assessment and Plan - Assessment and Plan (Free Text) Assessment: 1. Pneumonia 5/6: Prognosis is very poor, currently on IV abx. Right lung opacification. He is on Bipap. DNR and DNI. Family wanted outpatient hospice but it seems this is not possible so will try to do here. Per review of registered nurse hh case manager notes [facility] has evaluated ID consult, Bart Gaxiola, help appreciated Aztreonam 500 mg IVPB Q12H Zosyn 2.25 gm IVPB Q8H D5 LR 50 cc/hr NS 1000 ml bolus 2. AMS/Lethargy 5/6: DNR/DNI - his mental status is steadily worsening. Likely secondary to failure to thrive, hypoglycemia D5 LR 50 cc/hr Monitor 3. Hypoglycemia Likely secondary to failure to thrive, hypoglycemia D50 IVP x 2 D5 LR 50 cc/hr Monitor 4. Hypernatremia 5/6: Failure to thrive, little to no PO intake. There was supposed to be a PEG tube however this was not possible due to worsening clinical status. Na 151 5. Hypokalemia K 3.1 Mag 2.3 KCL 20 mEq IVPB x 1 D5 LR 50 cc/hr Monitor and replete as necessary 6. Failure to Thrive GI consult, Dr. Hernandez, help appreciated Plan is for PEG tube if stable D5 LR 50 cc/hr 7. Anemia Hgb 7.5 D5 LR 50 cc/hr NS 1000 ml bolus Monitor 8. Prophylactic Measures NPO due to AMS palliative consult, Michell Mccartney, help appreciated DNR/DNI Tylenol 650 mg PO Q6H PRN fever
[2016-07-01] MEDS: Sodium Chloride 0.45% 1,000 ML IV SCH (12:14)
[2016-07-02] MEDS: Piperacill/Tazo 2.25gm in Dex 2.25 GM/50 ML BAG IVPB SCH ×3 (00:43→16:18)
[2016-07-02] MEDS: Sodium Chloride 0.45% 1,000 ML IV SCH ×2 (02:24→21:24)
[2016-07-02] MEDS: metroNIDAZOLE IV 500 mg/100 ml 250 MG in Premixed IV 1 EA IVPB SCH ×3 (03:02→19:13)
[2016-07-02] MEDS ORDERED: Dextrose 50% SYRINGE Inj (50 ml) IV ONE (07:15)
[2016-07-02] MEDS: Fluconazole IV 200mg/100 ml NS 100 ML IVPB SCH (09:49)
--- NOTE | 2016-07-02 10:09 | CP.PCM.PN ---
Subjective - Date & Time of Evaluation Date of Evaluation: 07/02/16 Time of Evaluation: 10:00 - Subjective Subjective: Patient remains non verbal and non responsive. As mentioned before the patient is DNR and DNI I met the grandson yesterday and had discussion. Later the patient's son arrived and has signed for inpatient hospice. [facility] has left some recommendations in the chart and I added those orders. Tommorow the patient's PMD should be back. Objective - Vital Signs/Intake and Output Vital Signs (last 24 hours): Temp Pulse Resp BP Pulse Ox 97.9 F 88 22 103/48 L 98 07/02/16 07:05 07/02/16 07:05 07/02/16 07:05 07/02/16 07:05 07/02/16 07:05 Intake and Output: 07/02/16 07/02/16 06:59 18:59 Output Total 200 Balance -200 - Medications Medications: Current Medications Acetaminophen (Tylenol 325mg Tab) 650 mg PO Q6 PRN PRN Reason: Pain, moderate (4-7) Aztreonam 500 mg/ Sodium (Chloride) 50 mls @ 100 mls/hr IVPB Q12H [facility] Last Admin: 07/02/16 02:33 Dose: 100 mls/hr Piperacillin Sod/Tazobactam Sod (Zosyn 2.25 Gm Iv Premix) 2.25 gm in 50 mls @ 100 mls/hr IVPB Q8H [facility] Last Admin: 07/02/16 08:24 Dose: 100 mls/hr Fluconazole (Diflucan Iv 200 Mg/100 Ml Ns) 100 mls @ 100 mls/hr IVPB DAILY [facility] Last Admin: 07/02/16 09:49 Dose: 100 mls/hr Metronidazole 250 mg/ (Miscellaneous) 50 mls @ 100 mls/hr IVPB Q8H [facility] Last Admin: 07/02/16 03:02 Dose: 100 mls/hr Sodium Chloride (Sodium Chloride 0.45%) 1,000 mls @ 70 mls/hr IV .[id number] [facility] Last Admin: 07/02/16 02:24 Dose: 70 mls/hr - Labs Labs: 07/01/16 07:11 07/01/16 09:33 PT 12.2 SECONDS (9.7-12.2) 06/29/16 07:15 INR 1.1 06/29/16 07:15 APTT 47 SECONDS (21-34) H 06/19/16 20:45 Assessment and Plan - Assessment and Plan (Free Text) Assessment: 1. Pneumonia 07/02: Patient is now inpatient hospice. I added some of the recomendations 07/01: Prognosis is very poor, currently on IV abx. Right lung opacification. He is on Bipap. DNR and DNI. Family wanted outpatient hospice but it seems this is not possible so will try to do here. Per review of case advocate notes [facility] has evaluated ID consult, Bart Gaxiola, help appreciated Aztreonam 500 mg IVPB Q12H Zosyn 2.25 gm IVPB Q8H D5 LR 50 cc/hr NS 1000 ml bolus 2. AMS/Lethargy 07/02: [facility] 07/01: DNR/DNI - his mental status is steadily worsening. Likely secondary to failure to thrive, hypoglycemia D5 LR 50 cc/hr Monitor 3. Hypoglycemia 07/02: Will stop acccuchecks Likely secondary to failure to thrive, hypoglycemia D50 IVP x 2 D5 LR 50 cc/hr Monitor 4. Hypernatremia 07/02: For now continue IVF 07/01: Failure to thrive, little to no PO intake. There was supposed to be a PEG tube however this was not possible due to worsening clinical status. Na 151 5. Hypokalemia K 3.1 Mag 2.3 KCL 20 mEq IVPB x 1 D5 LR 50 cc/hr Monitor and replete as necessary 6. Failure to Thrive 07/02: Now inpatient hospice care GI consult, Dr. Hernandez, help appreciated Plan is for PEG tube if stable D5 LR 50 cc/hr 7. Anemia Hgb 7.5 D5 LR 50 cc/hr NS 1000 ml bolus Monitor 8. Prophylactic Measures NPO due to AMS palliative consult, Michell Mccartney, help appreciated DNR/DNI Tylenol 650 mg PO Q6H PRN fever
[2016-07-02 11:45] LABS: BASO % 0.2 % (0.0-2.0); HEMATOCRIT 24.2 % (35.0-51.0); LYMPH % 16.8 % (20.0-40.0); MEAN CELL VOLUME 72.3 fL (80.0-94.0); MEAN CORPUSCULAR HEMOGLOBIN 22.7 pg (27.0-31.0); MEAN CORPUSCULAR HGB CONC 31.3 g/dL (33.0-37.0); MEAN PLATELET VOLUME 8.2 fL (7.2-11.7); MONO # 0.6 K/uL (0.0-0.8); MONO % 9.5 % (0.0-10.0); NRBC % 9.5 % (0.0-2.0); RED CELL DISTRIBUTION WIDTH 18.5 % (11.5-14.5); WHITE BLOOD COUNT 6.2 K/uL (4.8-10.8)
[2016-07-02 12:02] LABS: POTASSIUM 3.3 mmol/L (3.6-5.2)
[2016-07-02 12:05] LABS: CALCIUM 7.6 mg/dl (8.6-10.4)
[2016-07-03] MEDS: Piperacill/Tazo 2.25gm in Dex 2.25 GM/50 ML BAG IVPB SCH ×2 (00:32→08:01)
[2016-07-03] MEDS: metroNIDAZOLE IV 500 mg/100 ml 250 MG in Premixed IV 1 EA IVPB SCH ×2 (04:10→11:07)
[2016-07-03] MEDS ORDERED: Dextrose 50% SYRINGE Inj (50 ml) IV ONE ×2 (06:55→07:15)
[2016-07-03 08:56] VITALS: BP 86/49; RESP 18; TEMP 97.9; O2SAT 100
[2016-07-03 09:00] VITALS: PULSE 62
[2016-07-03] MEDS: Fluconazole IV 200mg/100 ml NS 100 ML IVPB SCH (09:54)
--- NOTE | 2016-07-03 12:08 | CP.PCM.PN ---
Subjective - Date & Time of Evaluation Date of Evaluation: 07/03/16 Time of Evaluation: 12:08 - Subjective Subjective: afebrile PATIENT NONVERBAL patient on BiPAP. condition detiorating. PT DNR/DNI.PALLIATIVE CARE ON CASE Objective - Vital Signs/Intake and Output Vital Signs (last 24 hours): Temp Pulse Resp BP Pulse Ox 97.9 F 62 18 86/49 L 100 07/03/16 07:00 07/03/16 08:59 07/03/16 07:00 07/03/16 07:00 07/03/16 07:00 Intake and Output: 07/03/16 07/03/16 06:59 18:59 Intake Total 560 Output Total 105 Balance 455 - Medications Medications: Current Medications Acetaminophen (Tylenol 325mg Tab) 650 mg PO Q6 PRN PRN Reason: Pain, moderate (4-7) Aztreonam 500 mg/ Sodium (Chloride) 50 mls @ 100 mls/hr IVPB Q12H [facility] Last Admin: 07/03/16 04:09 Dose: 100 mls/hr Piperacillin Sod/Tazobactam Sod (Zosyn 2.25 Gm Iv Premix) 2.25 gm in 50 mls @ 100 mls/hr IVPB Q8H [facility] Last Admin: 07/03/16 08:01 Dose: 100 mls/hr Fluconazole (Diflucan Iv 200 Mg/100 Ml Ns) 100 mls @ 100 mls/hr IVPB DAILY [facility] Last Admin: 07/03/16 09:54 Dose: 100 mls/hr Metronidazole 250 mg/ (Miscellaneous) 50 mls @ 100 mls/hr IVPB Q8H [facility] Last Admin: 07/03/16 11:07 Dose: 100 mls/hr Sodium Chloride (Sodium Chloride 0.45%) 1,000 mls @ 70 mls/hr IV .[id number] [facility] Last Admin: 07/02/16 21:24 Dose: 70 mls/hr Lorazepam (Ativan) 0.5 mg IVP Q8H PRN PRN Reason: Anxiety Morphine Sulfate (Morphine) 1 mg IVP Q1 PRN PRN Reason: Pain, Mild (1-3) - Labs Labs: 07/02/16 11:36 07/02/16 11:36 PT 12.2 SECONDS (9.7-12.2) 06/29/16 07:15 INR 1.1 06/29/16 07:15 APTT 47 SECONDS (21-34) H 06/19/16 20:45 - Constitutional Appears: No Acute Distress, Cachectic, Chronically Ill - Head Exam Head Exam: NORMAL INSPECTION - Eye Exam Eye Exam: PERRL - ENT Exam ENT Exam: Mucous Membranes Moist - Neck Exam Neck Exam: Normal Inspection - Respiratory Exam Respiratory Exam: Decreased Breath Sounds (RT SIDE. FEW RHONCHI WITH CONDUCTED SOUNDS.) - Cardiovascular Exam Cardiovascular Exam: REGULAR RHYTHM, +S1, +S2 - GI/Abdominal Exam GI & Abdominal Exam: Soft, Normal Bowel Sounds - Extremities Exam Extremities Exam: absent: Calf Tenderness, Pedal Edema - Neurological Exam Neurological Exam: Altered - Skin Skin Exam: Diaphoretic Assessment and Plan (1) Altered mental status Status: Acute (2) Aspiration pneumonia Status: Acute (3) Dehydration Status: Acute (4) Hypernatremia Status: Acute (5) Acute CVA (cerebrovascular accident) Status: Acute (6) Hypothermia Status: Acute (7) Anemia Status: Acute (8) Prostate cancer Status: Acute - Assessment and Plan (Free Text) Plan: WILL CONTINUE TO MONITOR PATIENT'S CLINICAL COURSE. fOR NOW CONTINUE iv zOSYN 2.25 iv PIGGYBACK EVERY 8 HOURLY. CONTINUE aZACTAM 500 MG EVERY 12 HOURLY. 06/29 ADD IV FLAGYL 250MG IV Q 8HRLY 06/30/[address] ALISON IRVIN. DIFLUCAN 200 MG LD,F/U 100 MG ONCE A DAY DAILY X 5 DAYS.06/29 PROGNOSIS GUARDED PATIENT BEING FOLLOWED BY PALLIATIVE CARE, PT DNR/DNI CONTINUE COMFORT CARE AND INPATIENT HOSPICE.
== END 2016-07-01 15:00 | disposition hospice, inpatient (51) | DRG 871 ==
LOC: C.ER 19:43 → C.9E 23:00 → C.9I 06-20 01:06 → C.5T 06-25 23:16
PROVIDERS: ADMIT Internal Medicine; ATTEND Internal Medicine
PROC: 5A09457 Assistance with Respiratory Ventilation, 24-96 Consecutive Hours, Continuous Positive Airway Pressure (ICD-10-PCS; principal; 2016-06-30)
DX: A41.9 Sepsis, unspecified organism (principal); J18.9 Pneumonia, unspecified organism; J69.0 Pneumonitis due to inhalation of food and vomit; E41 Nutritional marasmus; N17.9 Acute kidney failure, unspecified; I95.89 Other hypotension; E87.0 Hyperosmolality and hypernatremia; F03.90 Unspecified dementia, unspecified severity, without behavioral disturbance, psychotic disturbance, mood disturbance, and anxiety; E83.39 Other disorders of phosphorus metabolism; N39.0 Urinary tract infection, site not specified; Z68.1 Body mass index [BMI] 19.9 or less, adult; I10 Essential (primary) hypertension; R65.20 Severe sepsis without septic shock; E86.0 Dehydration; K21.9 Gastro-esophageal reflux disease without esophagitis; R68.0 Hypothermia, not associated with low environmental temperature; J43.9 Emphysema, unspecified; E87.6 Hypokalemia; D64.9 Anemia, unspecified; Z51.5 Encounter for palliative care; Z53.09 Procedure and treatment not carried out because of other contraindication; E16.2 Hypoglycemia, unspecified; R09.02 Hypoxemia; R41.82 Altered mental status, unspecified; Z66 Do not resuscitate; M17.0 Bilateral primary osteoarthritis of knee; H54.8 Legal blindness, as defined in USA; Z85.46 Personal history of malignant neoplasm of prostate; Z86.73 Personal history of transient ischemic attack (TIA), and cerebral infarction without residual deficits; Z90.5 Acquired absence of kidney

== ENCOUNTER 2016-07-01 12:25 | Inpatient (IN) | payer OTHER ==
--- NOTE | 2016-07-03 17:12 | CP.PCM.PRO ---
Pronouncement of Note - Clinical Findings Physical Exam: No Response Verbal/Painful Stimuli, Absent Peripheral Pulses{ Carotid & Femoral}, Absent Heart & Breath Sounds, No Pupillary Light Reflex, No Corneal Reflex, Pupils Fixed & Dilated, Absence of Vital Signs - Pronouncement Time Time of Pronouncement of : 14:52 - Notifications Pronouncement Notifications: Family Notified, Atending Notified Biological Aide Notified: No - Autopsy Autopsy Requested: No - [place] [id number]
--- NOTE | 2016-07-04 08:24 | DS ---
REASON FOR ADMISSION: This is an 89-year-old -German male who was transferred from [facility] to be evaluated for hypotension and hypothermia, found to be in sepsis. COURSE OF HOSPITALIZATION: The patient was initially admitted to intensive care unit and he was resu scitated with fluids and vasopressors. The patient also was given antibiotics. The patient's status was partially improved and he was transferred to the medical floor. In spite of antibiotics the pat ient's general condition was not improving and oral intake was decreased. The patient had an ID cons ult with Dr. Cassia Arriaga and antibiotics were ordered by her. Discussion with the son was going on d uring this hospitalization regarding the guarded prognosis and the lack of general improvement in spi te of intensive care and son agreed for DNR/DNI and eventually for inpatient hospice admission. The patient continued to be lethargic, not improving despite antibiotics. The patient on 017. FINAL DIAGNOSES: Sepsis, pneumonia, dementia, deafness. Nigel Kelley MD cc: [id number] TT: 07/04/2016 08:23:50 radha
== END 2016-07-03 16:52 | DRG 871 ==
LOC: C.5T 12:25 → UNDOADMIN 07-03 16:26 → C.5T 07-03 16:26
PROVIDERS: ADMIT Internal Medicine; ATTEND Internal Medicine
DX: A41.9 Sepsis, unspecified organism (principal); J18.9 Pneumonia, unspecified organism; F03.90 Unspecified dementia, unspecified severity, without behavioral disturbance, psychotic disturbance, mood disturbance, and anxiety; H91.93 Unspecified hearing loss, bilateral